=== PATIENT | female | born 1950 | race Caucasian/White ===

== ENCOUNTER 2021-01-13 10:07 | Emergency (ER) | payer OTHER ==
--- OUTSIDE RECORDS SUMMARY | 2021-01-13 10:12 | XMS REPORT | Continuity of Care Document ---
:1950 Author Organization [facility] t Address [address] [place] [address] Care Team Providers Name Role Phone Asked, Pcp Primary Care Physician Unavailable Joaquina MORRISON, Erin Attending Clinician Claudio MORRISON, Beau Attending Clinician Dolores EMMANUEL Attending Clinician Unavailable Payers Payer Name Policy Type Policy Effective Date Expiration Date Sour ce Number UHC MEDICAREUHC [id number] 2020 [facility]/HEALTHSELECT 00:00:00 Methodis t [id number] 2020-Present [facility] [id number] [facility] - - MEDICARE MGD 00:00:00 Medical Ce nter CAREUNITED MEDICARE [id number] 021-Present Problems Condition Condition Condition Status Onset Resolution Last Treating Co mments Source Name Details Category Date Date Treatment Clinician Date Lumbar Lumbar Disease Active Overview: [facility] rad[facility]opa radiculopa 1-28 Periodic [facility] - thy thy 00:00: injection Medical 00 s [facility] orthopedi cs. Multiple, helpful, ongoing pain. Discussed the lack of physical therapy. She has a little back book from that doctor. Pelvic Pelvic Disease Active Overview: [facility] pain pain 1-28 Since [facility] - 00:00: early Medical August. Center Constant discomfor t. Worse with BM, urination , gas. Feels Has appt Saturday with urogyneco lgist. "Dr. Nelson" Woman's No inconveni ence or bowel issues. , not vaginal .Hysterec chuck. OVARIES removed tue Anxiety Anxiety Disease Active Overview: [facility] St 03-04 Related [facility] - 00:00: to Medical cancer, Center sleep. Prozac and HS Xanax. Disorder Disorder Disease Active [facility] of of 03-04 [facility] - initiating initiating 00:00: [place] dical and and Center maintainin maintainin g sleep g sleep Malignant Malignant Disease Active Overview: [facility] neoplasm neoplasm 04-07 Removed [facility] - of right of right 00:00: March Medica l ovary ovary Center netic study pending. By oncologyC A 125 followed. COMPLETE HYST, no hormones. BMI BMI Disease Active [facility] 25.0-25.9, 25.0-25.9, 1-19 [place] kes - adult adult 00:00: Medical [place] Benign Benign Disease Active Overview: [facility] essential essential 04-25 No HTN Luke s - tremor tremor 00:00: Long Medical standing, Center prev Neuro eval. Kaleigh Johnson [facility] NuroPropr anolol. Daily, controls, mild sx. Now on primidone and gabapenti n. Hyperlipid Hyperlipid Disease Active Overview : [facility] emia, emia, 6- On [facility] - mixed mixed 00:00: Pravachol Medical , Mother Center with high cholester ol to age 89 (dementia since age 84) Primary Primary Disease Active Overview: [facility] insomnia insomnia 03-20 Sees [facility] - 00:00: psych [facility] for insomnia. Sleep problems her entire life. Hates Ambien, one Xanax at bedtime. Atypical Atypical Problem Active Antonio r facial facial for ENT pain pain Sinusitis Sinusitis Problem Active Elsa ter - Chronic - Chronic for ENT Cough Cough Problem Active Center for ENT Allergic Allergic Problem Active Cente r rhinitis, rhinitis, for ENT seasonal seasonal Tinnitus, Tinnitus, Problem Active Elsa ter bilateral bilateral for ENT Chronic Chronic Problem Active Center rhinitis rhinitis for EN T vasomotor vasomotor Deviated Deviated Diagnosis Active [facility] ter nasal nasal for ENT septum septum Postnasal Postnasal Problem Active Elsa ter drip drip for ENT GERD GERD Problem Active Center for ENT Chronic Chronic Problem Active Center laryngitis laryngitis fo r ENT (LPRD) (LPRD) Cough Cough Problem Active Center variant variant for ENT asthma asthma Acute Acute Problem Active Center bronchitis bronchitis fo r ENT due to due to Mycoplasma Mycoplasma pneumoniae pneumoniae Hoarseness Hoarseness Problem Active C enter for ENT Acute Acute Problem Active Center laryngitis laryngitis fo r ENT Acute Acute Diagnosis Active Center recurrent recurrent for ENT maxillary maxillary sinusitis sinusitis Allergies, Adverse Reactions, Alerts Allergy Allergy Status Severity Reaction(s) Onset Inactive Treating Comm ents Source Name Type Date Date Clinician No Known DA Active U 2020-0 [facility] 00 [facility] No Known DA Active U 2020-0 [facility] Allergie 8-18 [facility] 00:[facility] H[facility]ita 00 [facility] No Known DA Active U 2020-0 [facility] Allergie 7-17 [place] 00[facility]ope 00 dic Hospita l No Known DA Active U 2020-0 [facility] Allergie 2-19 [place] [facility] 00:[facility] Orthope 00 dic [facility]ospita [facility] No Known DA Active U 2020-0 [facility] Allergie 1-07 [place] [facility] 00:[facility]: Orthope 00 dic Hospita l No Known DA Active U 2019-0 [facility] Allergie 7-23 [place] [facility] 00:[facility] Orthope 00 dic Hospita l No Known DA Active U 2018- [facility]ergie 2-28 [facility] 00:[facility]: [place] 00 [facility] No Known DA Active U 2014- [facility] Allergie 0-10 [place] [facility] 00:00: Orthope 00 dic Hospita l Social History Social Habit Start Date Stop Date Quantity Comments Source Alcohol Comment pt has two [facility] k[facility] - drinks 7 days a Medical C enter week Tobacco use and 2020-06-02 2020-06-02 Never used [facility] ethodist exposure 00:00:00 00:00:00 Alcohol intake 2020-06-02 2020-06-02 Current drinker [place] [facility] 00:00:00 00:00:00 of alcohol (finding) History [facility] 2020-05-11 2020-05-11 4 [place] [facility] Alcohol Frequency 00:00:00 00:00:00 History [facility] 2020-05-11 2020-05-11 1 [place] [facility] Alcohol Std Drinks 00:00:00 00:00:00 History [facility] 2020-05-11 2020-05-11 1 [place] [facility] Alcohol Binge 00:00:00 00:00:00 Sex Ass[birth year] At [birth year] [place] ethodist 00:00:00 00:00:00 Smoking Status Start Date Stop Date Source Never smoker [place] [facility] Medications Ordered Filled Start Stop Current Ordering Indication Dosage Frequency Signature Comments Components Source Medication Medication Date Date Medication? Clinician (SIG) Name Name gabapentin 2021- Yes 300mg Q.5D Take [address] [facility] (Neurontin) 12-20- capsule Meth german 300 mg 00:00: 23:59 ([address] capsule 00 :00 total) by mouth 2 (two) times a day. famotidine 2021- Yes 40mg QD Take [address] [facility] (PEPCID) 40 3-10 -10 tablet (40 L ukes - MG tablet 00:00: 23:59 mg total) Me dical 00 :00 by mouth Center every evening. rosuvastati 2021- Yes 20mg QD Take [address] [facility] (CRESTOR) 2-08 tablet (20 L ukes - 20 MG 00:00: 23:59 mg total) Medica l tablet 00 :00 by mouth Center nightly. primidone 2021- Yes 150mg Q.5D Take 3 [place] (MYSOLINE) 10-28- tablets Metho di 50 MG 00:00: 23:59 ([address] tablet 00 :00 total) by mouth 2 (two) times a day. folic acid Yes 1mg Take [address] (FOLVITE) 10-27 by mouth. [place] - MG tablet 10:17: [address] cetirizine Yes 10mg QD Take [address] (ZYRTEC) 10-27 by mouth Luke s - MG tablet 10:12: daily. Medica l 47 Center fluticasone Yes 1{spray QD [address] [facility] (FLONASE) 10-27 } Nasal [facility] - 50 10:12: route Medical mcg/actuati 47 daily. Center on nasal spray ALPRAZolam Yes .5mg Take 0.[address] (XANAX) 0.5 1-28 mg by [facility] - MG tablet 10:12: mouth Medical 47 every Center night as needed for Anxiety. azelastine Yes 2{spray QD [address] (ASTELIN) 10-27 } by Nasal [facility] - 137 mcg 10:12: route Medical (0.1 %) 47 daily Use Center nasal spray in each nostril as directed . fLUoxetine Yes 5mg QD Take [address] (PROZAC) 10 10-27 by mouth Luke s - MG capsule 10:12: daily . Medi jeremias 47 Center propranoloL 2021- Yes 80mg QD Take [address] (INDERAL 10-27 capsule [facility] - [place]) 80 MG 00:00: 23:59 (80 mg Medic al 24 hr 00 :00 total) by Center capsule mouth daily. meloxicam 2019-09 Yes 15mg Take [address] (MOBIC) 15 2-31 by mouth [facility] - MG tablet 00:00: as needed. Me dical 00 Center primidone 2019-09 Yes 150mg Q.5D Take [address] (MYSOLINE) 2-29 mg by [facility] - 50 MG 00:00: mouth 2 Medical tablet 00 (two) Center times daily. gabapentin 2019-09 Yes 300mg Q.5D Take [address] (NEURONTIN) 2-17 mg by [facility] - 300 MG 00:00: mouth 2 Medical capsule 00 (two) Center times daily. primidone 2019-09 No 150mg Q.5D Take 3 [place] (MYSOLINE) 2-10-28 tablets Metho di 50 MG 00:00: 00:00 ([address] tablet 00 :00 total) by mouth 2 (two) times a day. cetirizine 2019-09 Yes 10mg Take 10 mg [place] (ZyrTEC) 10 1-10 by mouth. Met hodi MG tablet 13:04: st 54 FLUoxetine 2019-09 Yes fluoxetine [place] (PROzac) 20 1-10 20 mg Methodi MG tablet 13:04: tablet st 54 fluticasone 2019-09 Yes 1{spray 1 spray [facility] propionate 1-10 } into each Meth german (FLONASE) 13:04: nostril. st 50 54 mcg/actuati on nasal spray folic acid 2019-09 Yes 1mg QD Take 1 mg [place] (FOLVITE) 1 1-10 by mouth Meth german MG tablet 13:04: daily. st 54 gabapentin 2019-09 No 300mg QD Take 3 [facility] (Neurontin) 1-10 03-23 capsules Met hodi 100 mg 00:00: 00:00 ([address] capsule 00 :00 total) by mouth nightly. primidone 2019-09 No 150mg Q.5D Take 3 [place] (MYSOLINE) 0-27 11-26 tablets Metho di 50 MG 00:00: 23:59 ([address] tablet 00 :00 total) by mouth 2 (two) times a day for 30 days. primidone 2019-09 No 250mg QD Take 1 [place] (MYSOLINE) 0-13 10-27 tablet Method i 250 MG 00:00: 00:00 ([address] tablet 00 :00 total) by mouth nightly for 90 days. primidone No 125mg QD Take 0.5 [place] (MYSOLINE) 9-28 10-13 tablets Metho di 250 MG 00:00: 00:00 ([address] tablet 00 :00 total) by mouth nightly for 90 days. primidone No 75mg QD Take 1.5 [facility] (MYSOLINE) 9 09-28 tablets Metho di 50 MG 00:00: 00:00 ([address] tablet 00 :00 total) by mouth nightly for 62 days. propranolol No 80mg QD Take 1 [place] [facility] (INDERAL 05-11 08-12 capsule Meth german [place]) 80 MG 00:00: 23:59 ([address] 24 hr 00 :00 total) by capsule mouth daily. primidone 2019- No 50mg QD Take 1 [place] (MYSOLINE) 05-11-03 tablet (50 Me thodi 50 MG 00:00: 00:00 mg total) st tablet 00 :00 by mouth nightly for 62 days. biotin 2019- No QD Take by [facility] 5,000 mcg 6-05 06-05 mouth [facility] - TbDL 10:34: 00:00 daily. Medical 52 :00 Center FOLIC ACID 2019- No QD Take by [facility] ORAL 6-05 06-05 mouth [facility] - 10:34: 00:00 daily. Medical 21 :00 Center gabapentin 2019- No 400mg Q.5D Take [address] (NEURONTIN) 6- 06-05 mg by [facility] - 400 MG 10:34: 00:00 mouth 2 Medical capsule 15 :00 (two) Center times daily . propranoloL No 120mg QD Take [address] (INDERAL 6-01 28-28 capsule [facility] - [place]) 120 MG 00:00: 00:00 (120 mg Med ical 24 hr 00 :00 total) by Center capsule mouth daily. propranolol 2019- No 120mg Take 120 [facility] [place] (INDERAL 6-05 08-12 mg by Method i [place]) 120 MG 00:00: 00:[address] 24 hr 00 :00 capsule rosuvastati No 10mg QD Take [address] n (CRESTOR) 5 02-08 tablet (10 L ukes - 10 MG 00:00: 00:00 mg total) Medica l tablet 00 :00 by mouth Center nightly. propranolol 2019- No 80mg QD Take [address] (INDERAL 10-21 06-05 capsule [facility] - [place]) 80 MG 00:00: 00:00 (80 mg Medic al 24 hr 00 :00 total) by Center capsule mouth daily. omeprazole 2019- No 40mg QD Take [address] (PRILOSEC) 8- 06-05 capsule [facility] - 40 MG 00:00: 00:00 (40 mg Medical capsule 00 :00 total) by Center mouth daily. rosuvastati 2019- No 10mg QD Take [address] n (CRESTOR) 5- 05-27 tablet (10 L u[facility] - 10 MG 00:00: 00:00 mg total) Medica l tablet 00 :00 by mouth Center nightly. ranitidine 2020- No 150mg QD Take [address] (ZANTAC) 1-24 06-05 tablet [facility] - 150 MG 00:00: 00:00 (150 mg Medical tablet 00 :00 total) by Center mouth nightly. Astepro Astepro Yes [place] 2 spray in Center 2-12 Emmanuel each for ENT 00:00: nostril 00 Ranitidine Ranitidine Yes Eugene 1 tablet Center HCl HCl 8-17 Emmanuel at bedtime for ENT 00:00: 00 Omeprazole Omeprazole Yes [place] 1 capsule Center 8-17 Emmanuel before for ENT 00:00: breakfast, 00 1 capsule before dinner ALPRAZolam Yes alprazolam [place] (XANAX) 0.5 7-11 0.5 mg Method i MG tablet 00:00: tablet st 00 propranolol 2020- No propranolo [place] (INDERAL 6-30 08-12 l ER 80 mg M ethodi [place]) 80 MG 00:00: 00:00 capsule,24 s t 24 hr 00 :00 hr,extende capsule d release meloxicam Yes [place] (MOBIC) 15 6-15 Methodi mg tablet 00:00: st 00 rosuvastati Yes rosuvastat [place] n (CRESTOR) 4-24 in 10 mg Meth german 10 mg 00:00: tablet st tablet 00 Flonase Flonase Yes [facility] not [place] defined for ENT Propranolol Propranolol Yes [facility] not [place] HCl HCl [place] defined for ENT Zoloft Zoloft Yes [facility] not [place] defined for ENT Rosuvastati Rosuvastati Yes [facility] n Calcium n Calcium [place] defined f or ENT Estrace Estrace Yes [facility] [place] defined for ENT Zertec Zertec Yes [facility] [place] defined for ENT Ambien Ambien Yes [facility] [place] defined for ENT Immunizations Ordered Immunization Filled Immunization Date Status Commen ts Source Name Name [place] COVID-19 MRNA 2021-01-03 Completed [place] VACCINATION 00:00:00 [facility] INFLUENZA QIV 2020-09-[address] [facility] - ADJUVANTED PF IM 00:00:00 Medical Center Pneumococcal 2020-03-[address] [facility] - Polysaccharide 00:00:00 Medical Ce nter (Pneumovax) SHINGLES VARICELLA 2016-10-18 Completed [facility] - (ZOSTAVAX) ZOSTER 00:00:00 [facility] Influenza Three-TIV 2016-10-18 Completed [facility] - Non-PF 4+YRS IM 00:00:00 Medical C enter Vital Signs Vital Name Observation Time Observation Value Comments Source Systolic blood 2020-10-27 10:15:00 105 mm[Hg] [facility] Diastolic blood 2020-10-27 10:15:00 70 mm[Hg] [facility] Heart rate 2020-10-27 10:15:00 68 /min [facility] Body temperature 2020-10-27 10:15:00 36.28 [facility] Respiratory rate 2020-10-27 10:15:00 16 /min [facility] Body height 2020-10-27 10:15:00 162.6 cm [facility] Body weight 2020-10-27 10:15:00 67.518 kg [facility] BMI 2020-10-27 10:15:00 25.55 kg/m2 [facility] Oxygen saturation in 2020-10-27 10:15:00 98 /min [facility] - Arterial blood by Medical Ce nter Pulse oximetry Systolic blood 2020-08-09 13:01:00 119 mm[Hg] [facility] pressure Diastolic blood 2020-08-09 13:01:00 74 mm[Hg] [place] [facility] pressure Heart rate 2020-08-09 13:01:00 66 /min [facility] Body height 2020-08-09 13:01:00 160 cm [facility] Body weight 2020-08-09 13:01:00 68.04 kg [facility] BMI 2020-08-09 13:01:00 26.57 kg/m2 [facility] Procedures Procedure Date / Time Performing Clinician Source Performed CBC W/PLT COUNT & AUTO 2020-10-27 11:21:00 Adolfo Snyder [facility] COMPREHENSIVE METABOLIC 2020-10-27 11:21:[address] [facility] HEMOGLOBIN A1C 2020-10-27 11:21:00 Adolfo Snyder Beau [facility] LIPID PANEL 2020-10-27 11:21:00 Adolfo Snyder Beau [facility] T4, FREE 2020-10-27 11:21:00 Adolfo Snyder Beau [facility] TSH 2020-10-27 11:21:00 Adolfo Snyder [facility] VITAMIN D, 25-HYDROXY 2020-10-27 11:21:00 Claudio [facility] UA/M W/RFLX CULTURE, 2020-10-27 11:21:00 Adolfo Snyder [facility] MICROSCOPIC EXAMINATION 2020-10-27 11:21:00 Adolfo Snyder [facility] ECG 12-LEAD 2020-10-27 00:00:00 [facility]RAIN W WO CONTRAST 2020-06-10 14:31:14 Rodolfo Escudero BASIC METABOLIC PANEL 2020-06-02 13:29:00 Rodolfo Escudero Plan of Care Planned Activity Planned Date Details Comments Source Future Scheduled 2021-10-[address] [facility] - Test 00:00:00 [facility] (YEAR 3 +) [facility] [code = MEDICARE SUBSEQUENT WELLNESS (YEAR 3 +)] Future Scheduled 2021-09-[address] [facility] - Test 00:00:00 [facility] breast (procedure) [code = 190216559] Future Scheduled 2021-04-30 INFLUENZA VACCINE [place] [facility] Test 00:00:00 [code = INFLUENZA VACCINE] Future Scheduled 2021-01-24 COVID-19 VACCINE (2 - [place] [facility] Test 00:00:00 Pfizer 2-dose series) [code = COVID-19 VACCINE (2 - Pfizer 2-dose series)] Future Scheduled 2020-02-[address] [facility] - Test 00:00:00 malignant neoplasm of [facility] colon (procedure) [code = 813822454] Future Scheduled 2016-12-16 SHINGLES VACCINES [place] [facility] Test 00:00:00 (#2) [code = SHINGLES VACCINES (#2)] Future Scheduled 2016-12-13 SHINGLES VACCINES ([address] [facility] - Test 00:00:00 of 3) [code = Medical Center SHINGLES VACCINES (2 of 3)] Future Scheduled 2000 BREAST CANCER [facility] Test 00:00:00 SCREENING [code = BREAST CANCER SCREENING] Future Scheduled 2000 COLONOSCOPY SCREENING [place] [facility] Test 00:00:00 [code = COLONOSCOPY SCREENING] Future Scheduled 1969 DTAP/TDAP/TD VACCINES [facility] - Test 00:00:00 (1 - Tdap) [code = Medical C enter DTAP/TDAP/TD VACCINES (1 - Tdap)] Future Scheduled 1968 Hepatitis C screening [place] [facility] Test 00:00:00 (procedure) [code = 906097839] Future Scheduled 1968 HEPATITIS C SCREENING [facility] - Test 00:00:00 [code = HEPATITIS C Medical Center SCREENING] Encounters Start End Encounter Admission Attending Care Care Encounter Source Date/Time Date/Time Type Type Clinicians Facility Department ID 2021-01-03 2021-01-03 Outpatient [facility] [id number] [place] 00:00:00 00:00:00 542 Method i 2020-08-09 2020-08-09 Outpatient [facility] [id number] [place] 00:00:00 00:00:00 RODOLFO 712 Method i 2020-06-10 2020-06-10 Outpatient [facility] [id number] [place] 00:00:00 00:00:00 RODOLFO 777 Method i 2020-06-02 2020-06-02 Outpatient [facility] [id number] [place] 00:00:00 00:00:00 RODOLFO 987 Method i 2020-06-02 2020-06-02 Outpatient [facility] [id number] [place] 00:00:00 00:00:00 RODOLFO 012 Method i 2020-05-11 2020-05-11 Outpatient JOAQUINA Lily [facility] [id number] [place] 00:00:00 00:00:[address] 2018-02-10 2018-02-10 Outpatient [facility] [id number] Center 14:50:00 14:50:00 [facility] 2017-12-10 2017-12-10 Outpatient [facility] [id number] Center 17:34:00 17:34:00 [facility] 2017-12-09 2017-12-09 Outpatient [facility] [id number] Center 14:30:00 14:30:00 [facility] 2017-12-05 2017-12-05 Outpatient The [facility] [id number] Center 15:19:00 15:19:00 [facility] 2017-12-05 2017-12-05 Outpatient The [facility] [id number] Center 11:20:00 11:20:00 [facility] 2017-12-04 2017-12-04 Outpatient The [facility] [id number] Center 13:11:00 13:11:00 [facility] 2017-12-04 2017-12-04 Outpatient The The [facility] [id number] Center 13:01:00 13:01:00 [facility] 2017-11-26 2017-11-26 Outpatient The The [facility] [id number] Center 16:26:00 16:26:00 [facility] 2017-11-26 2017-11-26 Outpatient The The [facility] [id number] Center 11:15:00 11:15:00 [facility] 2017-11-26 2017-11-26 Outpatient The [facility] [id number] Center 08:30:00 08:30:00 [facility] 2017-11-11 2017-11-11 Outpatient The The [facility] [id number] Center 13:00:00 13:00:00 [facility] Results Test Description Test Time Test Comments Results Result Sour e Comments - XR FLUORO FOR 2020-12-13 SPINE INJ 20:02:00 [facility] MARK SHARMA : 1950 Sex: F Patient Name: MARK SHARMA Unit No: [id number] EXAMS: CPT CODE: [id number] XR FLUORO FOR SPINE INJ [id number] THORACIC EPIRADICULAR INJECTION REFERRAL PHYSICIAN: None PREOPERATIVE DIAGNOSIS: Thoracic Disc Degeneration and Radiculitis POSTOPERATIVE DIAGNOSIS: Degenerative T6-7 and T8-9 discs with thoracic radiculitis PROCEDURES PERFORMED: Fluoroscopically guided needle localization of the right T6 and right T8 spinal nerves with transforaminal epidurograms and epidural injection of local anesthetic and steroid. FINDINGS: Infraneural approaches were taken at each level. Bridging osteophytosis with loss of disc space height and diffuse annular degeneration was seen at each level. Provocation with injection was negative. Anesthetic response was positive with the patient noting relief of her thoracic back and radiating pain. Preinjection VAS 3/10. Postinjection VAS 0/10. Steroid response pending follow-up. ESTIMATED BLOOD LOSS: Minimal ANESTHESIA: TIVA COMPLICATIONS: None DETAILS OF PROCEDURE: After obtaining stable vital signs, informed consent and IV access, with no contraindications, the patient was taken to the operating room and placed in a prone position with all extremities padded and appropriate monitors placed. The patient was sterilely prepped and draped over the thoracic spine. Using fluoroscopic visualization the insertion sites were marked for paravertebral approaches and using standard technique, a 25 gauge needle was advanced to the base of each superior pedicle without paresthesias. Isovue-300 contrast 0.2 mL of was injected incrementally with frequent negative aspirations to produce each epidurogram. There were no signs of intravascular or intrathecal uptake. Intradiscal uptake was seen at each level. Bupivicaine 0.75% 0.25 mL with lidocaine 4% 0.25 mL and triamcinolone 20 mg with kefzol (100 mg/ml) 0.2 ml was then incrementally injected with frequent negative aspirations and again there were no signs of intravascular or intrathecal uptake. The needles were removed and the patient was taken to the PACU in good condition. Image: Image 1 Image: Image 2 Image: Image 3 at 2001 Reported and signed by: Dao Sanabria M.D. [facility] [place] NAME: MARK SHARMA [address] [facility] PHYS: Dao Coyne MD [place] [address] : 1950 AGE: 70 SEX: F LOC: [facility] PHONE #: [phone] EXAM DATE: 12/13/2020 STATUS: REG [facility] FAX #: [phone] RAD #: [id number] D/C DT PAGE 1 Signed Report (CONTINUED) Patient Name: MARK SHARMA Unit No: [id number] EXAMS: CPT CODE: [id number] XR FLUORO FOR SPINE INJ [id number] <Continued> CC: Technologist: Sugar Hunt() [facility] [place] NAME: MARK SHARMA [address] [facility] PHYS: Dao Coyne MD [place] [address] : 1950 AGE: 70 SEX: F LOC: [facility] PHONE #: [phone] EXAM DATE: 12/13/2020 STATUS: REG [facility] FAX #: [phone] RAD #: [id number] D/C DT PAGE 2 Signed Report Patient Name: MARK SHARMA Unit No: [id number] EXAMS: CPT CODE: [id number] XR FLUORO FOR SPINE INJ [id number] <Continued> Transcribed D/ (2001) [facility] [place] NAME: MARK SHARMA [address] [facility] PHYS: Dao Coyne MD [place] [address] : 1950 AGE: 70 SEX: F LOC: [facility] PHONE #: [phone] EXAM DATE: 12/13/2020 STATUS: REG [facility] FAX #: [phone] RAD #: [id number] D/C DT PAGE 3 Signed Report - XR FLUORO FOR 2020-11-29 SPINE INJ 18:57:00 [facility] 1950 Sex: F Patient Name: MARK SHARMA Unit No: [id number] EXAMS: CPT CODE: [id number] XR FLUORO FOR SPINE INJ 73590 LUMBAR FACET INJECTION DIAGNOSTIC REFERRAL PHYSICIAN: None PREOPERATIVE DIAGNOSIS: Lumbar spondylosis without myelopathy or radiculopathy POSTOPERATIVE DIAGNOSIS: Lumbar spondylosis without myelopathy or radiculopathy PROCEDURE PERFORMED: Fluoroscopically guided needle localization of the left L3-4, bilateral L4-5 and left L5-S1 facets with arthrograms and diagnostic injection of local anesthetic and steroid. FINDINGS: Grade 1-2 spondylolisthesis is seen at L4-5. Moderate to marked degenerative changes were seen in the left L3-4 facet with slight widening of the joint space was seen at the left L4-5 facet. Provocation with injection was negative. Anesthetic response was positive with the patient noting relief of low back pain. Preinjection VAS 5/10. Postinjection VAS 0/10. Steroid response pending follow-up. ESTIMATED BLOOD LOSS: Minimal ANESTHESIA: TIVA COMPLICATIONS: None DETAILS OF PROCEDURE: After obtaining stable vital signs, informed consent and IV access patient was taken to the fluoroscopy suite where the patient was placed in a prone position with all extremities padded and appropriate monitors placed. The patient was sterilely prepped prepped and draped over the lumbosacral spine. Using fluoroscopic visualization, the insertion sites were marked for a paravertebral approach to each joint. Using standard technique, a 26 -gauge needle was inserted into each joint capsule without paresthesias. At all levels, aspiration was negative for clear serous fluid. Isovue-300 contrast 0.2 mL was injected to produce each arthrogram. There were no signs of intravascular or intrathecal uptake. Bupivicaine 0.75% 0.5 mL with Lidocaine 4% 0.25 ml and triamcinolone 12 mg was then injected incrementally into each joint. There were no signs of intravascular or intrathecal uptake. The patient's vital signs remained stable. All needles were removed and the patient was taken to the PACU in good condition. Image: Image 1 Image: Image 2 Image: Image 3 [facility] NAME: MARK SHARMA [address] [facility] PHYS: Dao Coyne MD [place], [place] [address] : 1950 AGE: 69 SEX: F LOC: KarissaPITA PHONE #: [phone] EXAM DATE: 11/29/2020 STATUS: REG [facility] FAX #: [phone] RAD #: [id number] D/C DT PAGE 1 Signed Report (CONTINUED) Patient Name: MARK SHARMA Unit No: [id number] EXAMS: CPT CODE: [id number] XR FLUORO FOR SPINE INJ 24566 <Continued> at 1857 Reported and signed by: Dao Sanabria M.D. CC: Technologist: Sugar Hunt(R) Transcribed D/ (1856) [facility] [address] [facility] PHYS: Dao Coyne MD [place], [place] [address] : 1950 AGE: 69 SEX: F LOC: KarissaPITA PHONE #: [phone] EXAM DATE: 11/29/2020 STATUS: [facility] FAX #: [phone] RAD #: [id number] D/C DT PAGE 2 Signed Report Patient Name: MARK SHARMA Unit No: [id number] EXAMS: CPT CODE: [id number] XR FLUORO FOR SPINE INJ 09865 <Continued> Orig Print D/T: S: 11/29/2020 (1900) [facility] NAME: MARK SHARMA [address] [facility] PHYS: Dao Coyne MD [place], [place] [address] : 1950 AGE: 69 SEX: F LOC: CARISSA PHONE #: [phone] EXAM DATE: 11/29/2020 STATUS: [facility] FAX #: [phone] RAD #: [id number] D/C DT PAGE 3 Signed Report Comprehensive metabolic panel 2020-10-28 16:10:00 Test Item Value Reference Range Interpretation Comme nts Glucose, Serum (test code 103 mg/dL 65-99 H = 20110130) BUN (test code = 20110131) 15 mg/dL 8-27 Creatinine, Serum (test 0.78 mg/dL 0.57-1 code = 5910110) eGFR If NonAfricn Am (test 78 mL/min/1.73 >59 code = 5864848) eGFR If Africn Am (test 90 mL/min/1.73 >59 code = 6013455) BUN/Creatinine Ratio (test 19 12-28 code = 3141619) Sodium, Serum (test code = 141 mmol/L 134-629 2011401) Potassium, Serum (test 4.6 mmol/L 3.5-5.2 code = 4051823) Chloride, Serum (test code 101 mmol/L 96-106 = 20110217) Carbon Dioxide, Total 26 mmol/L 20-29 (test code = 5617730) Calcium, Serum (test code 9.5 mg/dL 8.7-10.3 = 20110128) Protein, Total, Serum 7.3 g/dL 6-8.5 (test code = 20110204) Albumin, Serum (test code 4.9 g/dL 3.8-4.8 H = 7348636) Globulin, Total (test code 2.4 g/dL 1.5-4.5 = ) A/G Ratio (test code = 2.0 1.2-2.2 ) Bilirubin, Total (test 0.4 mg/dL 0-1.2 code = 20110206) Alkaline Phosphatase, S 56 See_Comment [Au tomated message] (test code = 6768-6) The sys tem which generated this result transmitted ref erence range: 39 - 117 IU/L. The reference r elvi was not used to int erpret this result as normal/abnormal . AST (SGOT) (test code = 16 See_Comment [Au tomated message] 20110210) The system [employer] generated this result transmitted ref erence range: 0 - 40 I U/L. The reference range was not used to interpr et this result as normal/abnormal . ALT (SGPT) (test code = 13 See_Comment [Au tomated message] ) The system [employer] generated this result transmitted ref erence range: 0 - 32 I U/L. The reference range was not used to interpr et this result as normal/abnormal . ELAN (test code = ELAN) Performed at: [facility] [id number] Director: Harrison Lassiter MD, Phone: [phone] Lab Interpretation (test Abnormal code = 07883-7) [facility] [id number] 16:10:00 Test Item Value Reference Range Interpretation Comments Cholesterol, Total 249 mg/dL 100-199 H (test code = 2093-3) Triglycerides (test 113 mg/dL 0-149 code = 2571-8) HDL Cholesterol (test 105 mg/dL >39 code = 2085-9) VLDL Cholesterol Jeremias 19 mg/dL 5-40 (test code = 26696-9) LDL Calculated (test 125 mg/dL 0-99 H code = 19381-1) LDl/HDL Ratio (test 1.2 See_Comment code = 92134-0) LDL/HDL Ratio Men Women 1/2 Avg.Risk 1.0 1.5 Avg.Risk 3.6 3.2 2X Avg.Risk 6. 2 5.0 3X Avg.Risk 8. 0 6.1 [Automat ed message] The system which generated this result transmitted reference range : 0.0 - 3.2 ratio . The reference range was not used to interpr et this result as normal/abnormal . ELAN (test code = ELAN) Performed at: [address] [place] [id number] Director: Harrison Lassiter MD, Phone: [phone] Lab Interpretation Abnormal (test code = 40157-3) [facility] [id number] 16:10:00 Test Item Value Reference Range Interpretation Comments Hemoglobin A1c (test 5.7 % 4.8-5.6 H code = 4548-4) Prediabetes: 5.7 - 6.4 Diabetes: >6.4 Glycemic control for adults with diabetes: <7.0 ELAN (test code = ELAN) Performed at: [address] [place] [id number] Director: Harrison Lassiter MD, Phone: [phone] Lab Interpretation Abnormal (test code = 68675-2) [facility] CenterT4, [id number] 16:10:00 Test Item Value Reference Range Interpretation Comments T4,Free(Direct) (test 1.15 ng/dL 0.82-1.77 code = 0721743) Thyroxine (T4) (test 6.4 ug/dL 4.5-12 code = 6765842) ELAN (test code = ELAN) Performed at: [address] [place] [address] [id number] Director: Harrison Lassiter MD, Phone: [phone] [facility] [id number] 16:10:00 Test Item Value Reference Range Interpretation Comments TSH (test code 1.930 See_Comment [Automated m essage] = ) The system [employer] generated this result transmit ander reference range : 0.450 - 4.50 uI U/mL. The reference r elvi was not used to interpret this result as normal/abnormal . ELAN (test code Performed at: - = ELAN) [address] [id number] Director: Harrison Lassiter MD, Phone: [phone] [facility] with platelet count + automated [id number] 16:10:00 Test Item Value Reference Range Interpretation Comments WBC (test code = 6.5 See_Comment [Automated ) message] The system which generated this result transmit ander reference range : 3.4 - 10.8 x10E3/uL. The reference range was not used to interpret this result as normal/abnormal . RBC (test code = 4.30 See_Comment [Automated 9-8) message] The system which generated this result transmit ander reference range : 3.77 - 5.28 x10E6/uL. The reference range was not used to interpret this result as normal/abnormal . Hemoglobin (test 13.3 g/dL 11.1-15.9 code = ) Hematocrit (test 39.3 % 34-46.6 code = ) MCV (test code = 91 fL 79-97 ) MCH (test code = 30.9 pg 26.6-33 ) MCHC (test code = 33.8 g/dL 31.5-35.7 ) RDW (test code = 12.9 % 11.7-15.4 ) Platelets (test 202 See_Comment [Automated code = ) message] The system which generated this result transmit ander reference range : 150 - 450 x10E3/uL. The reference range was not used to interpret this result as normal/abnormal . % Neutros (test 58 % Not Estab. code = ) % Lymphs (test 33 % Not Estab. code = ) % Monos (test code 6 % Not Estab. = ) % Eos (test code = 2 % Not Estab. ) % Baso (test code 1 % Not Estab. = ) # Neutros (test 3.8 See_Comment [Automated code = ) message] The system which generated this result transmit ander reference range : 1.4 - 7.0 x10E3/uL. The reference range was not used to interpret this result as normal/abnormal . # Lymphs (test 2.1 See_Comment [Automated code = ) message] The system which generated this result transmit ander reference range : 0.7 - 3.1 x10E3/uL. The reference range was not used to interpret this result as normal/abnormal . # Monos (test code 0.4 See_Comment [Automat ed = ) message] The system which generated this result transmit ander reference range : 0.1 - 0.9 x10E3/uL. The reference range was not used to interpret this result as normal/abnormal . # Eos (test code = 0.1 See_Comment [Automat ed ) message] The system which generated this result transmit ander reference range : 0.0 - 0.4 x10E3/uL. The reference range was not used to interpret this result as normal/abnormal . Baso (Absolute) 0.1 See_Comment [Automated (test code = message] The ) system which generated this result transmit ander reference range : 0.0 - 0.2 x10E3/uL. The reference range was not used to interpret this result as normal/abnormal . % Immature Grans 0 % Not Estab. (test code = ) # Immature Grans 0.0 See_Comment [Automated (test code = message] The ) system which generated this result transmit ander reference range : 0.0 - 0.1 x10E3/uL. The reference range was not used to interpret this result as normal/abnormal . ELAN (test code = Performed at: ELAN) - [facility] [address] [id number] Director: Harrison Lassiter MD, Phone: [phone] [facility] CenterVitamin D, 10-[id number] 16:10:00 Test Item Value Reference Range Interpretation Comments Vitamin D, 20.8 ng/mL 30-100 L Vitamin D 25-Hydroxy (test deficiency has been code = 1610594) defined by t [place] and an Endocrine Socie ty practice guidel ine as alevel of se rum 25-OH vitamin D less than 20 ng /mL (1,2).The Endoc rine Society went on to further define vitamin Dinsufficiency as a level between 2 1 and 29 ng/mL (2 ).1. IOM ([place] [employer]). 2010 . Dietary referen ce intakes for jeremias cium and D. [place]: The [employer] .2. George MF, Kristy CARIAS, Moe malcolm ORNELAS, et al. Evaluation, treatment, and prevention of vitamin D deficiency: an Endocrine Socie ty clinical practi ce guideline. JCEM . 2010; 96(5):1911-30. ELAN (test code = Performed at: ELAN) - [facility] [address] [id number] Director: Harrison Lassiter MD, Phone: [phone] Lab Interpretation Abnormal (test code = 35228-0) [facility]/M W/RFLX CULTURE, [id number] 16:10:00 Test Item Value Reference Range Interpretation Comments Specific [place], 1.008 1.005-1.03 UA (test code = 2965-2) pH, UA (test code = 6.5 5.0-7.5 5803-2) Color, UA (test Yellow Yellow code = 9796-4) Appearance (test Clear Clear code = 5297608) WBC Esterase (test Negative Negative code = 5237813) Protein, UA (test Negative Negative/T code = 36361-1) Glucose, Urine Negative Negative (test code = 50644-1) Ketones, UA (test Negative Negative code = 2514-8) Blood, UA (test Negative Negative code = 08739-1) Bilirubin, UA (test Negative Negative code = 5770-3) Urobilinogen,Semi-Q 0.2 mg/dL 0.2-1 n (test code = 3966106) Nitrite, UA (test Negative Negative code = 48855-3) Microscopic Comment Microscopic Examination (test follows if code = 1750789) indicated. Microscopic See below: Microscopic was Examination (test indicated and was code = 8031908) performed. Urinalysis Reflex Comment This speci men will (test code = not reflex to a ) Urine Culture. ELAN (test code = Performed at: ELAN) - [facility] [address] [id number] Director: Harrison Lassiter MD, Phone: [phone] [facility] CenterMICROSCOPIC [id number] 16:10:00 Test Item Value Reference Range Interpretation Comments WBC (test code = None seen See_Comment [Automated 20110604) message] The system which generated this result transmit ander reference range : 0 - 5 /hpf. The reference range was not used to interpret this result as normal/abnormal . RBC (test code = None seen See_Comment [Automated 20110610) message] The system which generated this result transmit ander reference range : 0 - 2 /hpf. The reference range was not used to interpret this result as normal/abnormal . Epithelial Cells None seen See_Comment [Automated (non renal) (test message] T he code = 20110618) system which generated this result transmit ander reference range : 0 - 10 /hpf. The reference range was not used to interpret this result as normal/abnormal . Bacteria (test Few None seen/ code = 6756824) ELAN (test code = Performed at: 01 ELAN) - [facility] [id number] [place], [place] [id number] Director: Harrison Lassiter MD, Phone: [phone] [facility]- MRI L-SPINE W/O [id number] 07:43:00 [facility] : 1950 Sex: F Patient Name: MARK SHARMA Unit No: [id number] EXAMS: CPT CODE: [id number] MRI L-SPINE W/O CONT 18312 TECHNIQUE: Multiplanar, multisequence MRI examination performed of the thoracic and lumbar spine without intravenous contrast material. COMPARISON: MR dated 04/01/2017 FINDINGS: THORACIC SPINE: Alignment: Within normal limits Bone Lesion: None of significance. Thoracic Spinal Cord: Normal. Prevertebral / Paraspinal Soft Tissues: Unremarkable. T1-2: A right paracentral disc extrusion is again demonstrated measuring 2 mm in AP dimension with 4 mm of cephalad migration. Facet hypertrophy contributes to mild bilateral foraminal stenosis.No significant central canal stenosis. T2-3: Small disc bulge is noted as well as mild bilateral facet hypertrophy. No significant foraminal or central canal stenosis. T3-4: Small disc bulge. No significant foraminal or central T4-5: No disc bulge or herniation. Right greater than left facet hypertrophy. No foraminal or central canal stenosis. T5-6: No disc bulge or herniation. No central canal or foraminal stenosis. T6- 7: Small disc bulge. No foraminal or central canal stenosis. T7-8: Disc desiccation without significant bulge or herniation. No foraminal or central canal stenosis. T8-9: Small disc bulge is present. No foraminal or central canal stenosis. T9-10: Small disc bulge is present as well as mild facet hypertrophy. No foraminal or central canal stenosis. T10-11: A disc bulge is noted as well as right greater than left facet hypertrophy. There is mild right foraminal stenosis. No significant left foraminal orcentral canal stenosis. T11-12: Minimal disc bulge is present as well as mild facet hypertrophy. No significant foraminal or central canal stenosis. T12-L1: A moderatedisc bulge contributes to mild central canal stenosis. No significant foraminal stenosis. LUMBAR SPINE: [facility] NAME: MARK SHARMA [address] [facility] PHYS: Dao Coyne MD : 1950 AGE: 69 SEX: F [place], [place] [address] LOC: Y.MRI PHONE #: [phone] EXAM DATE: 09/28/2020 STATUS: DEP CLI FAX #: [phone] RAD #: [id number] D/C DT PAGE 1 Signed Report (CONTINUED) Patient Name: MARK SHARMA Unit No: [id number] EXAMS: CPT CODE: [id number] MRI L-SPINE W/O CONT 78674 <Continued> Alignment: Grade 1 degenerative spondylolisthesis. Bone Lesion: None present. Fracture: None present. Paraspinal Soft Tissues: Unremarkable. Conus Medullaris: Termination at L1 level. Morphology is normal. L1/2: No significant abnormality. L2/3: Bilateral facet hypertrophy. No significant foraminal or central canal stenosis. L3/4: A broad disc bulge is present as well as facet hypertrophy and ligamentum flavum thickening. There is mild to moderate central canal stenosis as wellas mild left foraminal stenosis. No significant right foraminal narrowing. L4/5: Grade 1 degenerative spondylosis. Right-sided hemilaminotomy defect. Severe bilateral facet hypertrophy and ligamentum flavum thickening contribute to severe central canal stenosis, increased. Mild left, moderate right foraminal stenosis is increased. L5/S1: No significant disc bulge or herniation. Bilateral facet hypertrophy is again demonstrated. There is mild central canal stenosis without significant foraminal narrowing. IMPRESSION: Thoracic Spine: Multilevel thoracic spondylosis, mostly similar to prior exam. Lumbar Spine: Progression in lumbar spondylosis with severe central canal stenosis at L4-L5. at 0743 Reported and signed by: Jed Hoyos M.D. CC: Dao Sanabria MD Brittni hnologist: Avani Gilmore, RT(R) Transcribed D/ (0743) t[facility]Y.[facility] NAME: MARK SHARMA [address] [facility] PHYS: Dao Coyne MD : 1950 AGE: 69 SEX: F [place] [address] LOC: Y.MRI PHONE #: [phone] EXAM DATE: 09/28/2020 STATUS: DEP CLI FAX #: [phone] RAD #: [id number] D/C DT PAGE 2 Signed Report Patient Name: MARK SHARMA Unit No: [id number] EXAMS: CPT CODE: [id number] MRI L-SPINE W/O CONT 26963 <Continued> OrigPrint D/T: S: 09/29/2020 (0746) [facility] NAME: MARK SHARMA [address] [facility] PHYS: Dao Coyne MD : 1950 AGE: 69 SEX: F [place] [address] LOC: Y.MRIPHONE #: [phone] EXAM DATE: 09/28/2020 STATUS: [facility] CLI FAX #: [phone] [employer] #: [id number] D/C DT PAGE 3 Signed Report- MRI T-SPINE W/O [id number] 07:43:00[facility]: MARK [facility] : 1950 Sex: F Patient Name: MARK SHARMA Unit No: [id number] EXAMS: CPT CODE: [id number] MRI T-SPINE W/O CONT 11290 TECHNIQUE: Multiplanar, multisequence MRI examination performed of the thoracic and lumbar spine without intravenous contrast material. COMPARISON: MR dated 04/01/2017 FINDINGS: THORACIC SPINE: Alignment: Within normal limits Bone Lesion: None of significance. Thoracic Spinal Cord: Normal. Prevertebral / Paraspinal Soft Tissues: Unremarkable. T1-2: A right paracentral disc extrusion is again demonstrated measuring 2 mm in AP dimension with 4 mm of cephalad migration. Facet hypertrophy contributes to mild bilateral foraminal stenosis.No significant central canal stenosis. T2-3: Small disc bulge is noted as well as mild bilateral facet hypertrophy. No significant foraminal or central canal stenosis. T3-4: Small disc bulge. No significant foraminal or central T4-5: No disc bulge or herniation. Right greater than left facet hypertrophy. No foraminal or central canal stenosis. T5-6: No disc bulge or herniation. No central canal or foraminal stenosis. T6- 7: Small disc bulge. No foraminal or central canal stenosis. T7-8: Disc desiccation without significant bulge or herniation. No foraminal or central canal stenosis. T8-9: Small disc bulge is present. No foraminal or central canal stenosis. T9-10: Small disc bulge is present as well as mild facet hypertrophy. No foraminal or central canal stenosis. T10-11: A disc bulge is noted as well as right greater than left facet hypertrophy. There is mild right foraminal stenosis. No significant left foraminal orcentral canal stenosis. T11-12: Minimal disc bulge is present as well as mild facet hypertrophy. No significant foraminal or central canal stenosis. T12-L1: A moderatedisc bulge contributes to mild central canal stenosis. No significant foraminal stenosis. LUMBAR SPINE: [facility] NAME: MARK SHARMA [address] [facility] PHYS: Dao Coyne MD : 1950 AGE: 69 SEX: F [place], [place] [address] LOC: Y.MRI PHONE #: [phone] EXAM DATE: 09/28/2020 STATUS: DEP CLI FAX #: [phone] RAD #: [id number] D/C DT PAGE 1 Signed Report (CONTINUED) Patient Name: MARK SHARMA Unit No: [id number] EXAMS: CPT CODE: [id number] MRI T-SPINE W/O CONT 45807 <Continued> Alignment: Grade 1 degenerative spondylolisthesis. Bone Lesion: None present. Fracture: None present. Paraspinal Soft Tissues: Unremarkable. Conus Medullaris: Termination at L1 level. Morphology is normal. L1/2: No significant abnormality. L2/3: Bilateral facet hypertrophy. No significant foraminal or central canal stenosis. L3/4: A broad disc bulge is present as well as facet hypertrophy and ligamentum flavum thickening. There is mild to moderate central canal stenosis as wellas mild left foraminal stenosis. No significant right foraminal narrowing. L4/5: Grade 1 degenerative spondylosis. Right-sided hemilaminotomy defect. Severe bilateral facet hypertrophy and ligamentum flavum thickening contribute to severe central canal stenosis, increased. Mild left, moderate right foraminal stenosis is increased. L5/S1: No significant disc bulge or herniation. Bilateral facet hypertrophy is again demonstrated. There is mild central canal stenosis without significant foraminal narrowing. IMPRESSION: Thoracic Spine: Multilevel thoracic spondylosis, mostly similar to prior exam. Lumbar Spine: Progression in lumbar spondylosis with severe central canal stenosis at L4-L5. at 0743 Reported and signed by: Jed Hoyos M.D. CC: Dao Sanabria MD Brittni hnologist: Avani Gilmore, RT(R) Transcribed D/ (0743) AlphonseSLJ [facility] NAME: MARK SHARMA [address] [facility] PHYS: Dao Coyne MD : 1950 AGE: 69 SEX: F [place] [address] LOC: Y.MRI PHONE #: [phone] EXAM DATE: 09/28/2020 STATUS: DEP CLI FAX #: [phone] RAD #: [id number] D/C DT PAGE 2 Signed Report Patient Name: MARK SHARMA Unit No: [id number] EXAMS: CPT CODE: [id number] MRI T-SPINE W/O CONT 75976 <Continued> OrigPrint D/T: S: 09/29/2020 (0746) [facility] NAME: MARK SHARMA [address] [facility] PHYS: Dao Coyne MD : 1950 AGE: 69 SEX: F [place] [address] LOC: Y.MRIPHONE #: [phone] EXAM DATE: 09/28/2020 STATUS: DEP CLI FAX #: [phone] RAD #: [id number] D/C DT PAGE 3 Signed ReportBasic metabolic [id number] 06:11:00 Test Item Value Reference Interpretation Comments Range Glucose (test code 105 mg/dL 65-99 H Fasting = 2345-7) reference inter kathie For someone wit hout known diabetes, a glucose valuebe tween 100 and 125 mg/ dL is consistent withprediabetes and should be confi rmed with afollow-up test. BUN (test code = 23 mg/dL 7-25 3094-0) Creatinine (test 0.85 mg/dL 0.50-0.99 For patient s >49 code = 2160-0) years of age, the reference limit for Creatinine is approximately 1 3% higher for peopleidentifie d as -Dulce n. EGFR Non-Afr. 70 See_Comment [Automated me ssage] Lao (test code The syst em which = 2775) generated this result transmit ander reference range : > OR = 60 mL/min/1.73m2. The reference range was not used to interpret this result as normal/abnormal . EGFR 81 See_Comment [Automated mes shireen] Lao (test code The syst em which = 45959-0) generated this result transmit ander reference range : > OR = 60 mL/min/1.73m2. The reference range was not used to interpret this result as normal/abnormal . BUN/creatinine NOT APPLICABLE See_Comment [Automated message] ratio (test code = The syste m which 3097-3) generated this result transmit ander reference range : 6 - 22 (calc). The reference range was not used to interpret this result as normal/abnormal . Sodium (test code = 142 mmol/L 192-302 4426-2) Potassium (test 4.6 mmol/L 3.5-5.3 code = 2823-3) Chloride (test code 105 mmol/L 98-110 = 2075-0) CO2 (test code = 31 mmol/L 20-32 2027-9) Calcium (test code 9.5 mg/dL 8.6-10.4 = 42264-4) RAC (test code = Performing RAC) Organization Information: Site ID: [id number] Name: [facility] Address: [address] [place] [id number] Director: Alonso Oconnell Lab Interpretation Abnormal (test code = 12377-5) [facility]- XR FLUORO FOR SPINE [id number] 09:12:00 Patient Name: MARK SHARMA Unit No: [id number] EXAMS: CPT CODE: [id number] XR FLUORO FOR SPINE INJ 71562 THORACIC TRANSFORAMINAL INJECTION REFERRING PHYSICIAN: PREOPERATIVE DIAGNOSIS: Degenerative thoracic disc disease POSTOPERATIVE DIAGNOSIS: Bilateral thoracic radiculopathy PROCEDURES PERFORMED: Fluoroscopically guided needle localization of the bilateral T8 spinal nerve with transforaminal epidural steroid injection/injections. 2. Transforaminal epidurogram/epidurograms at bilateral T8. FINDINGS: Good spread 100% relief covers T7-T9 ANTIBIOTIC: Cefazolin ESTIMATED BLOOD LOSS: Minimal ANESTHESIA: (TIVA) Total intravenous anesthetic (patient intolerant to sedatives and hypnotics) COMPLICATIONS: None DETAILS OF PROCEDURE: After obtaining stable vital signs, informed consent and IV access, with no known contraindications to proceeding, the patient was taken to the fluoroscopy suite and placed in a prone position with all extremities padded and appropriate monitors placed. A sterile prep and drape was performed over the thoracic spine. Using fluoroscopic visualization at each level the insertion site was marked for a paravertebral approach to the foramen.It should be noted that the needle was medial to the head of the rib. Using standard technique, a 27 gauge needle was advanced to the base of the pedicle. It should be noted that the needle was always medial to the head of the rib. In AP view, final positioning was obtained outside the 6 on the clock position on the pedicle. Then, 1 ml of Isovue-300 contrast was injected to produce the epidurograms. No paresthesias were elicited with needle insertion or injec tion and there were no signs of intravascular or intrathecal uptake. Then, 0.5 ml of 4% lidocaine was injected as a test dose with no signs of intravascular or intrathecal uptake. Next, 1 ml of 4% lidocaine and 10 mg of Decadron was injected incrementally with frequent negativeaspirations. There were no signs of intravascular or intrathecal uptake. Each subsequent level was done using the same technique and medications. The patient's vital signs remained stable. The patient was taken to the PACU in good condition. Electronically Signedby Arie Braun on 05/17/2020 at 0912 Reported and signed by: Evan Braun M.D. [facility] NAME: MARK SHARMA [address] [facility] PHYS: DOCDANY - Evan Braun MD [place], [place] [address]CIZ: 1950 AGE: 69 SEX: F LOC:KarissaPITA PHONE #: [phone] EXAM DATE: 05/17/2020 STATUS: REG [facility] FAX #: [phone] RAD #: [id number] D/C DT PAGE 1 Signed Report (CONTINUED) Patient Name: MARK SHARMA Unit No: [id number] EXAMS: CPT CODE: [id number] XR FLUORO FOR SPINE INJ 90140 <Continued> CC: Technologist: Sugar Hunt(R) Transcribed D/ (911) Natasha [facility] [place] NAME: MARK SHARMA [address] [facility] PHYS: Evan Martinez MD [place] [address] : 1950 AGE: 69 SEX: F LOC: CARISSA PHONE #: [phone] EXAM DATE: 05/17/2020 STATUS: REG [facility] FAX #: [phone] RAD #: [id number] D/C DT PAGE 2 Signed Report Patient Name: MARK SHARMA Unit No: [id number] EXAMS: CPT CODE: [id number] XR FLUORO FOR SPINE INJ 03360 <Continued> Orig Print D/T: S: 05/17/2020 (914) [facility] NAME: ZACHARYMARKDAVIS MOY [address] [facility] PHYS: Evan Martinez MD [place] [address] : 1950 AGE: 69 SEX: F LOC: CARISSA PHONE #: [phone] DATE: 05/17/2020 STATUS: REG [facility] FAX #: [phone] RAD #: [id number] D/C DT PAGE 3 Signed Report- XR FLUORO FOR SPINE [id number] 11:46:00 Patient Name: MARK SHARMA Unit No: [id number] EXAMS: CPT CODE: [id number] XR FLUORO FOR SPINE INJ 84961 THORACIC TRANSFORAMINAL INJECTION REFERRING PHYSICIAN: PREOPERATIVE DIAGNOSIS: Degenerative thoracic disc disease POSTOPERATIVE DIAGNOSIS: Right thoracic radiculopathy PROCEDURES PERFORMED: Fluoroscopically guided needle localization of the right T7, right T8 spinal nerve with transforaminal epidural steroid injection/injections. 2. Transforaminal epidurogram/epidurograms at right T7, right T8. FINDINGS: Both poor filling right T7 thoracic pain 100% relief ANTIBIOTIC: Cefazolin ESTIMATED BLOOD LOSS: Minimal ANESTHESIA: (TIVA) Total intravenous anesthetic (patient intolerant to sedatives and hypnotics) COMPLICATIONS: None DETAILS OF PROCEDURE: After obtaining stable vital signs, informed consent and IV access, with no known contraindications to proceeding, the patient was taken to the fluoroscopy suite and placed in a prone position with all extremities padded and appropriatemonitors placed. A sterile prep and drape was performed over the thoracic spine.Using fluoroscopic visualization at each level the insertion site was marked for a paravertebral approach to the foramen.It should be noted that the needle was medial to the head of the rib. Using standard technique, a 27 gauge needle was advanced to the base of the pedicle. It should be noted that the needle was always medial to the head of the rib. In AP view, finalpositioning was obtained outside the 6 on the clock position on the pedicle. Then, 1 ml of Isovue-300 contrast was injected to produce the epidurograms. No paresthesias were elicitedwith needle insertion or injection and there were no signs of intravascular or intrathecal uptake. Then, 0.5 ml of 4% lidocaine was injected as a test dose with no signs of intravascular orintrathecal uptake. Next, 1 ml of 4% lidocaine and 10 mg of Decadron was injected incrementally with frequent negative aspirations. There were no signs of intravascular or intrathecal uptake. Each subsequent level was done using the same technique and medications. The patient's vital signs remained stable. The patient was taken to the PACU in good condition. at 1146 Reported and signed by: Evan Braun M.D. [facility] NAME: MARK SHARMA [address] [facility] PHYS: MITCH - Evan Braun MD [place], [place] [address] : 1950 AGE: 69 SEX: F LOC: KarissaPITA PHONE #: [phone] EXAM DATE: 04/15/2020 STATUS: [facility] FAX #: [phone] RAD #: [id number] D/C DT PAGE 1 Signed Report (CONTINUED) Patient Name: MARK SHARMA Unit No: [id number] EXAMS: CPT CODE: [id number] XR FLUORO FOR SPINE INJ 54657 <Continued> CC: Technologist: Sugar Hunt(R) Transcribed D/ (1146) Jean ClaudeD [facility] NAME: MARK SHARMA [address] [facility] PHYS: Evan Martinez MD [place] [address] : 1950 AGE: 69 SEX: F LOC: CARISSA PHONE #: [phone] EXAM DATE: 04/15/2020 STATUS: [facility] FAX #: [phone] RAD #: [id number] D/C DT PAGE 2 Signed Report Patient Name: MARK SHARMA Unit No: [id number] EXAMS: CPT CODE: [id number] XR FLUORO FOR SPINE INJ 10868 <Continued> Orig Print D/T: S: 04/15/2020 (4044) [facility] NAME: MARK SHARMA [address] PHYS: Evan Martinez MD [place] [address] : 1950 AGE: 69 SEX: F LOC: CARISSA PHONE #: [phone] EXAM DATE: 04/15/2020 STATUS: [facility] FAX #: [phone] RAD #: [id number] D/C DT PAGE 3 Signed Report- XR CHEST 1 [id number] 09:08:00 Patient Name: MARK SHARMA Unit No: [id number] EXAMS: CPT CODE: [id number] XR CHEST 1 V 74226 PORTABLE CHEST April 15, 2020 8:47 AM COMMENT: COMPARISON: November 19, 2019 There is no evidence for pneumothorax or active disease. at 0908 Reported and signed by: Cain Akers MD CC: Evan Braun MD Technologist: CARLOS PACHECO (RT.R) Transcribed D/ (0908) AlphonseJCL [facility] NAME: MARK SHARMA [address] PHYS: Evan Martinez MD : 1950 AGE: 69 SEX: F [place], [place] [address] LOC: CARISSA PHONE #: [phone] EXAM DATE: 04/15/2020 STATUS: [facility] FAX #: [phone] RAD #: [id number] D/C DT PAGE 1 SignedReport Patient Name: MARK SHARMA Unit No: [id number] EXAMS: CPT CODE: [id number] XR CHEST 1 V 84029 <Continued> Orig Print D/T: S: 04/15/2020(0911) [facility] NAME: MARK SHARMA [address] [facility] PHYS: Evan Luis MD : 1950 AGE: 69 SEX: [place], [place] [address] LOC: CARISSA PHONE #: [phone] EXAM DATE: 04/15/2020 STATUS: [facility] FAX #: [phone] RAD #: [id number] D/C DT PAGE 2 Signed Report- XR FLUORO FOR SPINE [id number] 12:12:00 Patient Name: MARK SHARMA Unit No: [id number] Report Has Been Amended EXAMS: CPT CODE: [id number] XR FLUORO FOR SPINE INJ 20292 Addendum -01/26/2020 SIGNED 01/26/2020 ADDENDUM: [id number] RAD/FLLOCSPI Left KNEE INJECTION REFERRING PHYSICIAN: PREOPERATIVE DIAGNOSIS: 1.Left knee arthropathy POSTOPERATIVE DIAGNOSIS: 1left.knee arthropathy . 2.Findings: PROCEDURES PERFORMED: 1.Fluoroscopic guided needle localization of left knee joint. 2.Arthrogram of left knee joint and placement of local anesthetic and steroids in left knee joint. FINDINGS: 1. ANTIBIOTIC:Cefazolin ESTIMATED BLOOD LOSS: Minimal ANESTHESIA:(TIVA) Total intravenous anesthetic (patient intolerant to sedatives and hypnotics) COMPLICATIONS:None DETAILS OF PROCEDURE: After obtaining stable vital signs, informed consent and IV access, with no known contraindications to proceeding, the patient was taken to the fluoroscopy suite and placed in a supine position with all extremities padded and appropriate monitors placed. Using standard technique, and fluoroscopic guidance, a 27-gauge needle was advanced intothe left knee joint and 2 mL of Isovue-300 contrast was injected to produce an arthrogram. No paresthesias were noted with placement of the needle. The results of the arthrogram are detailed above. Then 2 mL of 0.75 percent Marcaine and 2 mL of 4% lidocaine and 20 mg of triamcinolone was injected into the joint. Areas was cleaned of the prep and the patient was taken to the recovery room in stable condition. at 1212 Reported and signed by: Evan Braun M.D. Report THORACIC TRANSFORAMINAL INJECTION [facility] NAME: MARK SHARMA [address] [facility] PHYS: MITCH - Evan Braun MD [place], [place] [address] : 1950 AGE: 68 SEX: F LOC: KarissaPITA PHONE #: [phone] EXAM DATE: 11/19/2019 STATUS: [facility] FAX #: [phone] RAD #: [id number] D/C DT PAGE 1 Signed Report (CONTINUED) Patient Name: MARK SHARMA Unit No: [id number] Report Has Been Amended EXAMS: CPT CODE: [id number] XR FLUORO FOR SPINE INJ 69576 <Continued> REFERRING PHYSICIAN: PREOPERATIVE DIAGNOSIS: Degenerative thoracic disc disease POSTOPERATIVE DIAGNOSIS: Right thoracic radiculopathy PROCEDURES PERFORMED: Fluoroscopically guided needle localization of the right T8, right T9 spinal nerve with transforaminal epidural steroid injection/injections. 2. Transforaminal epidurogram/epidurograms at right T8, right T9. FINDINGS: Concordant provocation right T8 100% relief ANTIBIOTIC: Cefazolin ESTIMATED BLOOD LOSS: Minimal ANESTHESIA: (TIVA) Total intravenous anesthetic (patient intolerant to sedatives and hypnotics) COMPLICATIONS: None DETAILS OF PROCEDURE: After obtaining stable vital signs, informed consent and IV access, with no known contraindications to proceeding, the patient was taken to the fluoroscopy suite and placed in a prone position with all extremities padded and appropriate monitors placed. A sterile prep and drape was performed over the thoracic spine. Using fluoroscopic visualization at each level the insertion site was marked for a paravertebral approach to the foramen.It should be noted that the needle was medial to the head of the rib. Using standard technique, a 27 gauge needle was advanced to the base of the pedicle. It should be noted that the needle was always medial to the head of the rib. In AP view, final positioning was obtained outside the 6 on the clock position on the pedicle. Then, 1 ml of Isovue-300 contrast was injected to produce the epidurograms. No paresthesias were elicited with needle insertion or injection and there were no signs of intravascular or intrathecal uptake. Then, 0.5 mlof 4% lidocaine was injected as a test dose with no signs of intravascular or intrathecal uptake. Next, 1 ml of 4% lidocaine and 10 mg of Decadron was injected incrementally with frequent negative aspirations. There were no signs of intravascular or intrathecal uptake. Each sub sequent level was done using the same technique and medications. The patient's vital signs remained stable. The patient was taken to the PACU in good condition. [facility] NAME: ZACHARYMARKDAVIS MOY [address] [facility] PHYS: Evan Martinez MD [place], [place] [address] : 1950 AGE: 68 SEX: F LOC: CARISSA PHONE #: [phone] EXAM DATE: 11/19/2019 STATUS: [facility] FAX #: [phone] RAD #: [id number] D/C DT PAGE 2 Signed Report(CONTINUED) Patient Name: MARK SHARMA Unit No: [id number] Report Has Been Amended EXAMS: CPT CODE: [id number] XR FLUORO FOR SPINE INJ 34102 <Continued> at 1117 Reported and signed by: Evan Braun M.D. CC: Evan Crow MD Technologist: JACKSON FARIAS RT(R) Transcribed D/ (1117) t.JACKELYN.UVD [facility] [place] NAME: MARK SHARMA [address] [facility] PHYS: Evan Martinez MD [place], [place] [address] : 1950 AGE: 68 SEX: F LOC: CARISSA PHONE #: [phone] DATE: 11/19/2019 STATUS: [facility] FAX #: [phone] RAD #: [id number] D/C DT PAGE 3 Signed Report Patient Name: MARK SHARMA Unit No: [id number] Report Has Been Amended EXAMS: CPT CODE: [id number] XR FLUORO FOR SPINE INJ 92510 <Continued> Orig Print D/T: S: (1120) [facility] NAME: MARK SHARMA [address] [facility] PHYS:MITCH - Evan Braun MD [place], [place] [address] : 1950 AGE: 68 SEX: F LOC: CARISSA PHONE #: [phone] EXAM DATE: 11/19/2019 STATUS: [facility] FAX #: [phone] RAD #: [id number] D/C DT PAGE 4 Signed Report- XR CHEST 1 [id number] 07:19:00 Patient Name: MARK SHARMA Unit No: [id number] EXAMS: CPT CODE: [id number] XR CHEST 1 V 46241 PORTABLE CHEST November 19, 2019 8:11 AM COMMENT: COMPARISON: October 06, 2019 There is no evidence for pneumothorax or active disease. at 0719 Reported and signed by: Cain Akers MD CC: Evan Braun MD Technologist: CARLOS PACHECO (RT.R) Transcribed D/ (07) AnkurL [facility] NAME: MARK SHARMA [address] [facility] PHYS: Evan Martinez MD : 1950 AGE: 68 SEX: F [place], [place] [address] LOC: CARISSA PHONE #: [phone] EXAM DATE: 11/19/2019 STATUS: [facility] FAX #: RAD #: [id number] D/C DT PAGE 1 Signed Report Patient Name: MARK SHARMA Unit No: [id number] EXAMS: CPT CODE: [id number] XR CHEST1 V 90692 <Continued> Orig Print D/T: S: 11/20/2019 (0723) [facility] NAME: MARK SHARMA [address] [facility] PHYS: MITCH - Evan Braun MD : 1950 AGE: 68 SEX: F [place], [place] [address] LOC: CARISSA PHONE #: [phone] EXAM DATE: 11/19/2019 STATUS: [facility] FAX #: [phone] RAD #: [id number] D/C DT PAGE 2 Signed Report- XR FLUORO FOR SPINE [id number] 11:17:00 Patient Name: MARK SHARMA Unit No: [id number] EXAMS: CPT CODE: [id number] XR FLUORO FOR SPINE INJ 71731 THORACIC TRANSFORAMINAL INJECTION REFERRING PHYSICIAN: PREOPERATIVE DIAGNOSIS: Degenerative thoracic disc disease POSTOPERATIVE DIAGNOSIS: Right thoracic radiculopathy PROCEDURES PERFORMED: Fluoroscopically guided needle localization of the right T8, right T9 spinal nerve with transforaminal epidural steroid injection/injections. 2. Transforaminal epidurogram/epidurograms at right T8, right T9. FINDINGS: Concordant provocation right T8 100% relief ANTIBIOTIC: Cefazolin ESTIMATED BLOOD LOSS: Minimal ANESTHESIA: (TIVA) Total intravenous anesthetic (patient intolerant to sedatives and hypnotics) COMPLICATIONS: None DETAILS OF PROCEDURE: After obtaining stable vital signs, informed consent and IV access, with no known contraindications to proceeding, the patient was taken to the fluoroscopy suite and placed in a prone position with all extremities padded and appropriate monitorsplaced. A sterile prep and drape was performed over the thoracic spine. Using fluoroscopic visualization at each level the insertion site was marked for a paravertebral approach to the foramen.It should be noted that the needle was medial to the head of the rib. Using standard technique, a 27 gauge needle was advanced to the base of the pedicle. It shouldbe noted that the needle was always medial to the head of the rib. In AP view, final positioning was obtained outside the 6 on the clock position on the pedicle. Then, 1 ml of Isovue-300 c ontrast was injected to produce the epidurograms. No paresthesias were elicited with needle insertion or injection and there were no signs of intravascular or intrathecal uptake. Then, 0.5 ml of 4% lidocaine was injected as a test dose with no signs of intravascular or intrathecal uptake. Next, 1 ml of 4% lidocaine and 10 mg of Decadron was injected incrementally with frequent negative aspirations. There were no signs of intravascular or intrathecal uptake.Each subsequent level was done using the same technique and medications. The patient's vital signs remained stable. The patient was taken to the PACU in good condition. at 1117 Reported and signed by: Evan Braun M.D. [facility] NAME: MARK SHARMA CHINMAY [address] [facility] PHYS: Evan Martinez MD [place] [address] : 1950 AGE: 68 SEX: F LOC: CARISSA PHONE #: [phone] EXAM DATE: 11/19/2019 STATUS: [facility] FAX #: [phone] RAD #: [id number] D/C DT PAGE 1 Signed Report (CONTINUED) Patient Name: MARK SHARMA Unit No: [id number] EXAMS: CPT CODE: [id number] XR FLUORO FOR SPINE INJ 18204 <Continued> CC: Evan Braun MD Technologist: JACKSON FARIAS RT(R) Transcribed D/ (1117) t.SDR.UVD [facility] [place] NAME: ZACHARYMARK MOY [address] [facility] PHYS: Evan Martinez MD [place], [place] [address] : 1950 AGE: 68 SEX: F LOC: CARISSA PHONE #: [phone] EXAM DATE: 11/19/2019 STATUS: [facility] FAX #: [phone] RAD #: [id number] D/C DT PAGE 2 Signed Report Patient Name: MARK SHARMA Unit No: [id number] EXAMS: CPT CODE: [id number] XRFLUORO FOR SPINE INJ 32668 <Continued> Orig Print D/T: S: 11/19/2019 (1120) [facility] NAME: MARK SHARMA [address] [facility] PHYS: Evan Martinez MD [place], [place] [address] : 1950 AGE: 68SEX: F LOC: CARISSA PHONE #: [phone] EXAM DATE: 11/19/2019 STATUS: [facility] FAX #: [phone] RAD #: [id number] D/C DT PAGE 3 Signed Report- XR CHEST 1 [id number] 20:06:00 Patient Name: MARK SHARMA Unit No: [id number] EXAMS: CPT CODE: [id number] XR CHEST 1 V 91073 IMAGES PROVIDED: One frontal view of the chest is provided. COMPARISON: None FINDINGS: The lungs are clear. The heart size and pulmonary vasculature are normal. No pleural effusion or pneumothorax. IMPRESSION: Unremarkable exam of the chest. at 2006 Reported and signed by: Jed Hoyos M.D. CC: Evan Braun MD Technologist: HEATH MONTOYA RT(R) Transcribed D/T: 05/2020 (2005) tHOLLYSLJ [facility] NAME: MARK SHARMA [address] [facility] PHYS: Evan Martinez MD : 1950 AGE: 68 SEX: F [place], [place] [address] LOC: CARISSA PHONE #: [phone] EXAM DATE: 10/06/2019 STATUS: [facility] FAX #: [phone] RAD #: [id number] D/C DT PAGE 1 Signed Report Patient Name: MARK SHARMA Unit No: [id number] EXAMS:CPT CODE: [id number] XR CHEST 1 V 82138 <Continued> Orig Print D/T: S: 10/08/2019 (2008) [facility] NAME: MARK SHARMA [address] [facility] PHYS: DOCUD - DoctorEvan MDDOB: 1950 AGE: 68 SEX: F [place], [place] [address] LOC:CARISSA PHONE #: [phone] EXAM DATE: 10/06/2019 STATUS: [facility] FAX #: [phone] RAD #: [id number] D/C DT PAGE 2 Signed Report- XR FLUORO FOR SPINE [id number] 08:52:00 Patient Name: MARK SHARMA Unit No: [id number] EXAMS: CPT CODE: [id number] XR FLUORO FOR SPINE INJ 09722 THORACIC TRANSFORAMINAL INJECTION REFERRING PHYSICIAN: PREOPERATIVE DIAGNOSIS: Degenerative thoracic disc disease POSTOPERATIVE DIAGNOSIS: Thoracic radiculopathy PROCEDURES PERFORMED: Fluoroscopically guided needle localization of the right T7, left T9 spinal nerve with transforaminal epidural steroid injectio n/injections. 2. Transforaminal epidurogram/epidurograms at right T7, left T9. FINDINGS: Good spread 100% relief ANTIBIOTIC: Cefazolin ESTIMATED BLOOD LOSS: Minimal ANESTHESIA: (TIVA) Total intravenous anesthetic (patient intolerant to sedatives and hypnotics) COMPLICATIONS: None DETAILS OFPROCEDURE: After obtaining stable vital signs, informed consent and IV access, with no known contraindications to proceeding, the patient was taken to the fluoroscopy suite and placed in a prone position with all extremities padded and appropriate monitors placed. A sterile prep and drape was performed over the thoracic spine. Using fluoroscopic visualization at each level the insertion site was marked for a paravertebral approach to the foramen.It should be noted that the needle was medial to the head of the rib. Using standard technique, a 27 gauge needle was advanced to the base of the pedicle. It should be noted that the needle was always medial to the head of the rib. In AP view, final positioning was obtained outside the6 on the clock position on the pedicle. Then, 1 ml of Isovue-300 contrast was injected to produce the epidurograms. No paresthesias were elicited with needle insertion or injection and there were no signs of intravascular or intrathecal uptake. Then, 0.5 ml of 4% lidocaine was injected as a test dose with no signs of intravascular or intrathecal uptake. Next, 1 mlof 4% lidocaine and 10 mg of Decadron was injected incrementally with frequent negative aspirations. There were no signs of intravascular or intrathecal uptake. Each subsequent level was done using the same technique and medications. The patient's vital signs remained stable. The patient was taken to the PACU in good condition. at 0852 Reported and signed by: Evan Braun M.D. [facility] NAME: MARK SHARMALEY [address] [facility] PHYS: Evan Martinez MD [place] [address] : 1950 AGE: 68 SEX: F LOC: CARISSA PHONE #: [phone] EXAM DATE: 10/06/2019 STATUS: [facility] FAX #: [phone] RAD #: [id number] D/C DT PAGE 1 Signed Report (CONTINUED) Patient Name: MARK SHARMA Unit No: [id number] EXAMS: CPT CODE: [id number] XR FLUORO FOR SPINE INJ 94014 <Continued> CC: Technologist: Sugar Hunt(Mayi) Transcribed D/ (0852) Natasha [facility] NAME: ZACHARYMARK MOY [address] [facility] PHYS: Evan Martinez MD [place] [address] : 1950 AGE: 68 SEX: F LOC: CARISSA PHONE #: [phone] EXAM DATE: 10/06/2019 STATUS: [facility] FAX #: [phone] RAD #: [id number] D/C DT PAGE 2 Signed Report Patient Name: MARK SHARMA Unit No: [id number] EXAMS: CPT CODE: [id number] XR FLUORO FOR SPINE INJ 88942 <Continued> Orig Print D/T: S: 10/06/2019 (0856) [facility] NAME: MARK SHARMA CHINMAY [address] [facility] PHYS: MITCH - DoctorEvan MD [place], [place] [address] : 1950 AGE: 68 SEX: F LOC: CARISSA PHONE #: [phone] EXAM DATE: 10/06/2019 STATUS: [facility] FAX #: [phone] RAD #: [id number] D/C DT PAGE 3 Signed Report- US ABDOMEN [id number] 09:51:00 Name: MARK SHARMA [facility] [place] : 1950 Age/S: 68 / F [address] [place] [address] Bl Unit #: [id number] Loc: Eugenio [id number] Phys: Salvador Richter MD Acct: [id number] Dis Date: Status: DIS IN PHONE #: [phone] Exam Date: 04/22/2019 1500 FAX #: [phone] Reason: ASCITIES Report Has Been Amended EXAMS: CPT CODE: [id number] US ABDOMEN LTD 74013 Addendum - 06/30/2019 SIGNED 06/30/2019 ADDENDUM: [id number] US/USABDLTD ADDENDUM: The technical component of the study was performed by supervised physician assistant to the ceo, Romeo Goss. at 0953 Reported and si gned by: Van Boucher M.D. Report PROCEDURE: Ultrasound-guided paracentesis. INDICATION: 68-year-old female with large volume ascites COMPARISON: None TECHNIQUE: The technical component of the study was performed by supervised physician assistant to the ceo. The technicalreport is available in the electronic medical record. Informed consent was obtained prior to the procedure. A total of 5 L of ceci peritoneal fluid was removed. IMPRESSION: 1. Technically successful ultrasound- guided paracentesis. SL: [id number] at 1611 Reported and signed by: Van Boucher M.D. CC: Salvador Richter MD; Adolfo Snyder Technologist: India Fuentes RDMS (AB) (OB) Trnscb Date/Time: 04/22/2019 (1610) [email or web address] Orig Print D/T: S: 04/22/2019 (1614) Probe: PAGE 1 Signed Report- US PARACENTESIS W [id number] 09:51:00 Name: MARK SHARMA [facility] [place] : 1950 Age/S: 68 / F [address] [place] [address] Unit #: [id number] Loc: Eugenio [id number] Phys: Salu Fowler MD Acct: [id number] Dis Date: Status: DIS IN PHONE #: [phone] Exam Date: 04/22/2019 1608 FAX #: [phone] Reason: u/s guideD PARACENTHESIS - LARGE VOLUME ASCIIIS Report Has Been Amended EXAMS: CPT CODE: [id number] US PARACENTESIS W IMAGE [id number] Addendum - 06/30/2019 SIGNED 06/30/2019 ADDENDUM: [id number] US/PARACENTWI ADDENDUM: The technical co mponent of the study was performed by supervised physician assistant to the ceo, Romeo Goss. at 0925 Reported andsigned by: Van Boucher M.D. Report PROCEDURE: Ultrasound-guided paracentesis. INDICATION: 68-year-old female with large volume ascites COMPARISON: None TECHNIQUE: Thetechnical component of the study was performed by supervised physician assistant to the ceo. The technical report is available in the electronic medical record. Informed consent was obtained prior to the procedure. A total of 5 L of ceci peritoneal fluid was removed. IMPRESSION: 1. Technically successful ultrasound-guided paracentesis. SL: [id number] at 1611 Reported and signed by: Van Boucher M.D. CC: Salvador Richter MD; Adolfo Snyder; Saul Fowler MD Technologist: India Fuentes RDMS () (OB) Trnscb Date/Time: 04/22/2019 (161) [email or web address] Orig Print D/T: S: 04/22/2019 (1614) Probe: PAGE 1 Signed Report- US ABDOMEN [id number] 13:44:00 Name: MARK SHARMA : 1950 Age/S: 68 / F [address] [place] [address] Unit #: [id number] Loc: Becker [id number] Phys: Sharyn Moncada MD Acct: [id number] Dis Date: Status: DEP CLI PHONE #: [phone] Exam Date: 04/30/2019 0847 FAX #: [phone] Reason: ASCITES, PARACENTESIS Report Has Been Amended EXAMS: CPT CODE: [id number] US ABDOMEN LTD 23071 Addendum - 06/02/2019 SIGNED 06/02/2019 ADDENDUM: [id number] US/USABDLTD Performed and at 1344 Reported and signed by: Fermin Galvan D.O. Report EXAM: US ABDOMEN LIMITED PROCEDURE: Ultrasound-guided paracentesis. INDICATION: Ascites. COMPARISON: None. TECHNIQUE: Right abdominal ultrasound interrogation was performed, which showed moderate ascites. The procedure, risks, benefits and alternatives were discussed. Informedconsent was obtained. Timeout was performed prior to the procedure. The technical component of this study was performed by directly supervised physician assistant to the ceo. The technical report is available in the electronic medical record. FINDINGS: Total volume of 7 L of clear yellow ascites was removed. IMPRESSION: 1. Moderate ascites. 2. Technically successful ultrasound-guided paracentesis. PAGE 1 Signed Report (CONTINUED) Name: MARK SHARMA : 1950 Age/S: 68 / F [address] [place] [address] Unit #: [id number] Loc: [place] [address] Phys: Sharyn Moncada MD Acct: [id number] Dis Date: Status: [facility] CLI PHONE #: [phone] Exam Date: 04/30/2019 0847 FAX #: [phone] Reason: ASCITES, PARACENTESIS Report Has Been Amended EXAMS: CPT CODE: [id number] US ABDOMEN LTD 32977 <Continued> at 0933 Reported and signed by: Fermin Galvan D.O. CC: Adolfo Snyder; Sharyn Moncada MD Technologist: Brandy Alatorre Trnnhb Date/Time: 04/30/2019 (932) [email or web address] Orig Print D/T: S: 04/30/2019 (936) Probe: PAGE 2 Signed Report - US PARACENTESIS W [id number] 13:44:00 Name: MARK SHARMA [facility] : 1950 Age/S: 68 / F [address] [place] [address] Bl Unit #: [id number] Loc: Becker [id number] Phys: Sharyn Moncada MD Acct: [id number] Dis Date: Status: DEP CLI PHONE #: [phone] Exam Date: 04/30/2019 08 FAX #: [phone] Reason: POSST OP ASCITES Report Has Been Amended EXAMS: CPT CODE: [id number] US PARACENTESIS W IMAGE [id number] Addendum - 06/02/2019 SIGNED 06/02/2019 ADDENDUM: [id number] US/PARACENTWI Performed and at 1344 Reported and signed by: Fermin Galvan D.O. Report EXAM: US ABDOMEN LIMITED PROCEDURE: Ultrasound-guided paracentesis. INDICATION: Ascites. COMPARISON: None. TECHNIQUE: Right abdominal ultrasound interrogation was performed, which showed moderate ascites. The procedure, risks, benefits and alternatives were discussed. Informed consent was obtained. Timeout was performed prior to the procedure. The technical component of this study was performed by directly supervised physician assistant to the ceo. The technical report is available in the electronic medical record. FINDINGS: Total volume of 7 L of clear yellow ascites was removed. IMPRESSION: 1. Moderate ascites. 2. Technically successful ultrasound-guided paracentesis. PAGE 1 Signed Report (CONTINUED) [facility] 1950 Age[facility]S: 68 / F [address] [facility] [address] [id number] Loc: DORIS Becker [address] Phys: Sharyn Moncada Acct: [id number] Dis Date: Status:DEP CLI PHONE #: [phone] Exam Date: 04/30/2019 08 FAX #: [phone] Reason: POSST OP ASCITES Report Has Been Amended EXAMS: CPT CODE: [id number] US PARACENTESIS W IMAGE 44859 <Continued> Electronically Signed by Munir Galvan on 04/30/2019 at 0933 Reported and signed by: Fermin Galvan D.O. CC: Adolfo Snyder; Sharyn Moncada MD Technologist: Brandy Alatorre Trnnhb Date/Time: 04/30/2019 (932) [email or web address] Orig Print D/T: S: 04/30/2019 (0937) Probe: PAGE 2 Signed Report- US ABDOMEN [id number] 09:33:00 Name: MARK SHARMA [facility] : 1950 Age/S: 68 / F [address] [place] [address] Unit #: [id number] Loc: DORIS [id number] Phys: Sharyn Moncada MD Acct: [id number] Dis Date: Status: REG CLI PHONE #: [phone] Exam Date: 04/30/2019 08 FAX #: [phone] Reason: ASCITES, PARACENTESIS EXAMS: CPTCODE: [id number] US ABDOMEN LTD 58411 EXAM: US ABDOMEN LIMITED PROCEDURE: Ultrasound- guided paracentesis. INDICATION: Ascites. COMPARISON: None. TECHNIQUE: Right abdominal ultr asound interrogation was performed, which showed moderate ascites. The procedure, risks, benefits and alternatives were discussed. Informed consent was obtained. Timeout was performed prior to the procedure. The technical component of this study was performed by directly supervised physician assistant to the ceo. The technical report is available in the electronic medical record. FINDINGS: Total volume of 7 L of clear yellow ascites was removed. IMPRESSION: 1. Moderate ascites. 2. Technically successful ultrasound-guided paracentesis. at 0933 Reported and signed by: Fermin Galvan D.O. CC: Adolfo Snyder; Sharyn Moncada MD Technologist: Brandy Alatorre Trnscb Date/Time: 04/30/2019 (932) [email or web address] Orig Print D/T: S: 04/30/2019 (936) Probe: PAGE1 Signed Report- US PARACENTESIS W [id number] 09:33:00 Name: MARK SHARMA [facility] : 1950 Age/S: 68 / F [address] [place] [address] Unit #: [id number] Loc: [facility] [id number] Phys: Sharyn Moncada MD Acct: [id number] Dis Date: Status: REG CLI PHONE #: [phone] Exam Date: 04/30/2019 0847 FAX #: [phone] Reason: POSST OP ASCITES EXAMS: CPTCODE: [id number] US PARACENTESIS W IMAGE 99675 EXAM: US ABD OMEN LIMITED PROCEDURE: Ultrasound-guided paracentesis. INDICATION: Ascites. COMPARISON: None. TECHNIQUE: Right abdominal ultrasound interrogation was performed, which showed moderate ascites. The procedure, risks, benefits and alternatives were discussed. Informed consent was obtained. Timeout was performed prior to the procedure. The technical component of this study was performed by directly supervised physician assistant to the ceo. The technical report is available in the electronic medical record. FINDINGS: Total volume of 7 L of clear yellow ascites was removed. IMPRESSION: 1. Moderate ascites. 2. Technically successful ultrasound-guided paracentesis. at 0933 Reported and signed by: Fermin Galvan D.O. CC: Adolfo Snyder; Sharyn Moncada MD Technologist: Brandy Alatorre Trnscb Date/Time: 04/30/2019 (932) [email or web address] Orig Print D/T: S: 04/30/2019 (0937) Probe: PAGE1 Signed ReportSURGICAL [id number] 15:07:00 RUN DATE: 04/24/19 [place] [facility] *LIVE* PAGE 1 RUN TIME: 1507 Specimen Inquiry RUN USER: INTERFACE PATIENT: MARK SHARMA LOC: [facility] U #: [id number] AGE/SX: 68/F ROOM: [facility] RE04/14/19[facility] DR: Sharyn Moncada MD : 50 BED: 1 DIS: 04/16/19 STATUS: DIS IN TLOC: SPEC #: [id number] RECD: 04/15/19 STATUS: LENNY DEAN #: [id number] LIBRADO: 04/15/[address] [facility] DR: Sharyn Moncada MD ENTERED: 04/17/19 SP TYPE: SURG SPEC OTHR DR: Adolfo Snyder MD ORDERED: GM LEVEL 4 CODES: [id number] - SOFT TISSUES, N [id number] - URINARY BLADDER [id number]- UTERUS, NOS H80261 - FALLOPIAN TUBE RB8091 - LYMPH NODE, NOS RA3110 - OMENTUM, NOS [id number] - PELVIS, NOS COPIES TO: Adolfo Snyder MD [address] [facility] [address] [place] [address] Sharyn Moncada MD [address] [place] [address] PROCEDURES: GM LEVEL 4 (Incomplete) TISSUES: 1. PELVIS, NOS - Pelvic, washing 2. UTERUS, NOS - Uterus, cervix, left tube and ovary, exc 3. FALLOPIAN TUBE, NOS - Fallopian tube, and ovary, right, excisi 4. PELVIS, NOS - Cul-de-sac, bx. 5. SOFT TISSUES, NOS - Soft tissue, right and left gutter,segm 6. LYMPH NODE, NOS - Lymph nodes, left and right 7. URINARY BLADDER, NOS - Bladder, peritoneal, bx. 8. LYMPH NODE, NOS - Lymph node, periaortic and appendix, dis 9. SOFT TISSUES, NOS - Soft tissue, left pelvic sidewall, excis 10. 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 Uterus, cervix, left tube and ovary: Chronic cervicitis, endocervical polyp; cystic atrophy of endometrium, endometrial polyp; leiomyomata; left fallopian tube and ovary without significant histopathology. CONTINUED ON NEXT PAGE RUN DATE: 04/24/19 [facility] *LIVE* PAGE 2 RUN TIME: 1507 Specimen Inquiry RUN USER: INTERFACE ------ ------SPEC #: [id number] PATIENT: MARK SHARMA #[id number] (Continued) FINAL DIAGNOSIS (Continued) Pelvic washings and soft tissue, right gutter, left pelvic sidewall, left gutter, bladder, cul-de-sac, omentum 1-3, appendix, segments: No metastatic tumor identified. Lymph nodes, left and right pelvic, periaortic nodes, dissection: No metastatic tumor identified. GROSS AND MICROSCOPIC FROZEN DIAGNOSIS (LW): Adnexa, right: Borderline mucinous neoplasm, final diagnosis deferred to permanent sections. GROSS DESCRIPTION: Received are 70 cc of light yellow brownish pelvic washing for cytologic evaluation. Received fresh designated right ovary and fallopian tube is a cystic mass measuring 22.5 x 13 x 17 cm with an attached tube measuring 3.5 x 0.5 cm. The specimen weighs 2423 g together. The serosal surface appears intact. Sections are submitted as (A) and (B) for frozen diagnosis. Additional sections are submitted as (C)-(O). Received in formalin labeled right gutter is a 1.1 cm portion of fibromembranous tissue with attached adipose (P). Received in formalin labeled bladder peritoneal biopsy is a 4.1 cm strip of purple rivero fibromembranous tissue (Q). Received in formalin labeled left sidewall is a 0.5 cm pink-rivero tissue fragment (R). Received in formalin labeled left gutter is a 1.4 cm portion of purple rivero fibromembranous tissue (S). Received in formalin labeled uterus, cervix, left ovary and fallopian 2 is a 83 g 8 x 4.5 x 2.5 cm uterus with a 2.2 cm in diameter cervix with a rivero ectocervix and a 0.3 cm cervical os. The left fallopian tube has previously been transected and measures 3.5 cm in length 0.6 cm in diameter, the left ovary measures 2.7 cm in greatest dimension is white-rivero and cerebriform. The endometrium is rivero and smooth predominantly, there is a 1.1 cm pink-rivero polyp. There is also a 2.2 cm endocervical polyp. The myometrium measures up to 1.1 cm with white whirled nodules measuring up to 0.7 cm. Submitted (T)-(U) cervix (V) cervix with polyp (W)-(Y) corpus uteri (Z) endometrial polyp (AA)-(BB) left adnexa. Received in formalin labeled cul-de-sac is a 1.3 cm pink-rivero tissue fragment(CC). Received in formalin labeled left pelvic lymph nodes is a 3.1 cm aggregate of lymph node containing adipose (DD)-(EE). Received in formalin labeled right pelvic lymph nodes is a 4.1 cm aggregate of lymph node containing adipose (FF)-(II). Received in formalin labeled periaorticlymph nodes is a 2.4 cm aggregate of lymph node containing adipose (JJ)- (KK). Received informalin labeled omentum #1 is a 13 cm in greatest dimension portion of soft lobulated adipose (LL)-(NN). Received in formalin labeled omentum #2 is a 8.5 cm portion of soft yellow adipose (OO)-(QQ). Received in formalin labeled omentum #3 is a 15 cm in greatest dimension portion of lobulated soft adipose are (RR)-(TT). Received in formalin labeled appendix is a 5 cm in length1 cm in diameter vermiform appendix. CONTINUED ON NEXT PAGE -- RUN DATE: 04/24/19 [place] [facility] *LIVE* PAGE 3 RUN TIME: 1507 Specimen Inquiry RUN USER: INTERFACE SPEC #: [id number] PATIENT: MARK SHARMA #[id number] (Continued) GROSS AND MICROSCOPIC (Continued) The margin of the appendix is inked black submitted (UU)-(WW). MICROSCOPIC EXAMINATION: Cell block and cytospin smears of the pelvic washings reveal mixed inflammation and reactive/atypical mesothelial cells. No cells diagnostic of malignancy are identified. Sections of the right ovary reveal a multiloculated cystic structure lined by columnar are epithelium with mucinous differentiation. The nuclei show focal areas with higher grade dysplastic changes, mitotic figures and areas of stratification including papillary and cribriform growth patterns. No definite invasion is identified. The right fallopian tube is unremarkable. Sections of the right gutter and left pelvic sidewall showno evidence of malignancy. The left gutter shows some mesothelial hyperplasia, no definite malignancy is identified. Sections of the bladder biopsy show focal mesothelial cysts, no malignancy is identified. The cul-de-sac shows focal microcalcifications, no definite malignancy is identified. Sections of the cervix show nabothian cysts, squamous metaplasia and mild chronic inflammation. There is an endocervical polyp present. Sections of the endometrium show changes of cystic atrophy. Benign endometrial glands are present within the myometrium. The muscular lesions are well circumscribed without significant nuclear atypia or necrosis. There is an endometrial polyp present with dilated glands. The left fallopian tube and ovary are unremarkable. The ovary does contain small physiologic cysts and endosalpingosis. The left pelvic lymph nodes (2 nodes), right pelvic lymph nodes (6 nodes), and periaortic nodes (2 nodes) show no evidence of metastatic carcinoma. Sections of the omental tissue #1 through 3 show some mesothelial hyperplasia and fibrosis. No definite malignancy is identified. Sections of the appendix show no evidence of malignancy, 1 benign lymph node is present in the surrounding soft tissue. POST-OP DIAGNOSIS Pelvic mass PRE-OP DIAGNOSIS Pelvic mass CONTINUED ON NEXT PAGE RUN DATE: 04/24/19 [facility] *[facility]* PAGE 4 RUN TIME: 1507 Specimen Inquiry RUN USER: INTERFACE ----- -------SPEC #: [id number] PATIENT: MARK SHARMA #[id number] (Continued) REVIEWED BY: LW SYNOPTIC REPORT *Specimen: Uterus, bilateral adnexa. *Procedure:Hysterectomy with bilateral salpingo-oophorectomy. *Lymph Node Sampling: Bilateral pelvic, para-aortic. *Specimen Integrity: Right Ovary (if applicable):Intact. Left Ovary (if applicable): Intact. *Primary Tumor Site: Right ovary. *Ovarian Surface Involvement: Not identified. *Tumor Size: Right Ovary: 22.5 cm. *Histologic Type:Mucinous borderline tumor with intraepithelial carcinoma. *Histologic Grade: Well differentiated. *Implants: Not identified. *Extent of Involvement of Other Tissues/Organs: N/A. *Peritoneal Ascitic Fluid: No malignancu identified. *Pleural Fluid: Not performed. Lymph Nodes: Para-aortic: Number examined: 2. Number positive: 0. Left and Right Pelvic nodes: Number examined: 8. Number positive: 0. *TNM: T1a N0 MX. Signed SIGNATURE ON FILE KristinBenito Patricia RASHID 04/24/19 1507 END OF REPORT BASIC METABOLIC [id number] 08:17:00 Test Item Value Reference Range Interpretation Comments SODIUM (test code = NA) 140 mEq/L 134-147 N POTASSIUM (test code = 3.6 mEq/L 3.4-5.0 N K) CHLORIDE (test code = 114 mEq/L 100-108 H CL) CARBON DIOXIDE (test 19 mEq/L 21-33 L code = CO2) ANION GAP (test code = 11 0-20 N GAP) GLUCOSE (test code = 102 mg/dL 70-110 N GLU) BLOOD UREA NITROGEN 15 mg/dL 7-18 N (test code = BUN) GLOMERULAR FILTRATION 62.3 80-90 L Units of measure = RATE (test code = GFR) ml/mi n/1.73 m2 CREATININE (test code = 0.9 mg/dL 0.6-1.3 CREAT) CALCIUM (test code = 7.7 mg/dL 8.0-10.5 L CA) CBC W/AUTO [id number] 08:02:00 Test Item Value Reference Range Interpretation Comments WHITE BLOOD CELL (test code = 10.73 x10 3/uL 4.5-11.0 N WBC) RED BLOOD CELL (test code = 3.23 x10 6/uL 3.54-5.02 L RBC) HEMOGLOBIN (test code = HGB) 9.9 g/dL 11.0-15.0 L HEMATOCRIT (test code = HCT) 30.8 % 33.0-45.0 L MEAN CELL VOLUME (test code = 95.4 fL 81.0-99.0 N MCV) MEAN CELL HGB (test code = 30.7 pg 27.0-33.0 N MCH) MEAN CELL HGB CONCETRATION 32.1 g/dL 33.0-37.0 L (test code = MCHC) RED CELL DISTRIBUTION WIDTH CV 13.7 % 11.5-14.5 N (test code = RDW) RED CELL DISTRIBUTION WIDTH SD 48.0 fL 37.0-54.0 N (test code = RDW-SD) PLATELET COUNT (test code = 346 x10 3/uL 150-400 N PLT) MEAN PLATELET VOLUME (test 9.3 fL 7.0-9.0 H code = MPV) NEUTROPHIL % (test code = NT%) 83.0 % 56.0-77.0 H IMMATURE GRANULOCYTE % (test 1.2 % 0.0-2.0 N code = IG%) LYMPHOCYTE % (test code = LY%) 9.1 % 14.0-32.0 L MONOCYTE % (test code = MO%) 3.6 % 4.8-9.0 L EOSINOPHIL % (test code = EO%) 2.6 % 0.3-3.7 N BASOPHIL % (test code = BA%) 0.5 % 0.0-2.0 N NUCLEATED RBC % (test code = 0.0 % 0-0 N NRBC%) NEUTROPHIL # (test code = NT#) 8.90 x10 3/uL 2.0-7.6 H IMMATURE GRANULOCYTE # (test 0.13 x10 3/uL 0.00-0.03 H code = IG#) LYMPHOCYTE # (test code = LY#) 0.98 x10 3/uL 1.0-3.8 L MONOCYTE # (test code = MO#) 0.39 x10 3/uL 0.1-0.8 N EOSINOPHIL # (test code = EO#) 0.28 x10 3/uL 0.0-0.2 H BASOPHIL # (test code = BA#) 0.05 x10 3/uL 0.0-0.2 N NUCLEATED RBC # (test code = 0.00 x10 3/uL 0.0-0.1 N NRBC#) MANUAL DIFF REQUIRED (test NO code = MDIFF) - US ABDOMEN [id number] 16:11:00 Name: MARK SHARMA [facility] : 1950 Age/S: 68 / F [address] [place] [address] Unit #: [id number] Loc: [facility] [id number] Phys: Salvador Richter MD Acct: [id number] Dis Date: Status: ADM IN PHONE #: [phone] Exam Date: 04/22/2019 1500 FAX #: [phone] Reason: ASCITIES EXAMS: CPTCODE: [id number] US ABDOMEN LTD 15366 PROCEDURE: Ultrasound-guided paracentesis. INDICATION: 68-year-old female with large volume ascites COMPARISON: None TECHNIQUE: The technical component of the study was performed by supervised physician assistant to the ceo. The technical report is available in the electronic medical record. Informed consent was obtained prior to the procedure. A totalof 5 L of ceci peritoneal fluid was removed. IMPRESSION: 1. Technically successful ultrasound-guided paracentesis. SL: [id number] at 1611 Reported and signed by: Van Boucher M.D. CC: Salvador Richter MD; Adolfo Snyder Technologist: India Fuentes RDMS (AB) (OB) Trnscb Date/Time: 04/22/2019 (161) [email or web address] Orig Print D/T: S: 04/22/2019 (161) Probe: PAGE 1 Signed Report- US PARACENTESIS W [id number] 16:11:00 Name: MARK SHARMA [facility] : 1950 Age/S: 68 / F [address] [place] [address] Unit #: [id number] Loc: Eugenio [id number] Phys: Saul Fowler MD Acct: [id number] Dis Date: Status: ADM IN PHONE #: [phone] Exam Date: 04/22/2019 1608 FAX #: [phone] Reason: u/s guideD PARACENTHESIS - LARGE VOLUME ASCIIIS EXAMS: CPTCODE: [id number] US PARACENTESIS W IMAGE 00907 PROCEDURE: U ltrasound-guided paracentesis. INDICATION: 68-year-old female with large volume ascites COMPARISON: None TECHNIQUE: The technical component of the study was performed by supervised physician assistant to the ceo. The technical report is available in the electronic medical record. Informed consent was obtained prior to the procedure. A totalof 5 L of ceci peritoneal fluid was removed. IMPRESSION: 1. Technically successful ultrasound-guided paracentesis. SL: [id number] at 1611 Reported and signed by: Van Boucher M.D. CC: Salvador Richter MD; Adolfo Snyder; Saul Serrato MD Technologist: India Fuentes RDMS () (OB) Trnscb Date/Time: 04/22/2019 (161) [email or web address] Orig Print D/T: S: 04/22/2019 (161) Probe: PAGE 1 Signed ReportCOMPREHENSIVE METABOLIC PANEL 2019-04-22 05:38:00 Test Item Value Reference Range Interpretation Comments SODIUM (test code = NA) 141 mEq/L 134-147 N POTASSIUM (test code = 3.0 mEq/L 3.4-5.0 L K) CHLORIDE (test code = 111 mEq/L 100-108 H CL) CARBON DIOXIDE (test 20 mEq/L 21-33 L code = CO2) ANION GAP (test code = 13 0-20 N GAP) GLUCOSE (test code = 105 mg/dL 70-110 N GLU) BLOOD UREA NITROGEN 19 mg/dL 7-18 H (test code = BUN) GLOMERULAR FILTRATION 40.7 80-90 L Units of measure = RATE (test code = GFR) ml/mi n/1.73 m2 CREATININE (test code = 1.3 mg/dL 0.6-1.3 N CREAT) TOTAL PROTEIN (test 5.0 g/dL 6.4-8.2 L code = PROT) ALBUMIN (test code = 1.40 g/dL 3.4-5.0 L ALB) CALCIUM (test code = 7.0 mg/dL 8.0-10.5 L CA) BILIRUBIN TOTAL (test 0.20 mg/dL 0.0-1.0 code = BILT) SGOT/AST (test code = 17 IUnit/L 15-37 N AST) SGPT/ALT (test code = 11 IUnit/L 15-65 L ALT) ALKALINE PHOSPHATASE 190 IUnit/L 20-125 H TOTAL (test code = ALKP) [id number] 05:38:00 Test Item Value Reference Range Interpretation Comments MAGNESIUM (test code = MAG) 1.80 mg/dL 1.8-2.4 N CBC W/AUTO [id number] 05:28:00 Test Item Value Reference Range Interpretation Comments WHITE BLOOD CELL (test code = 10.99 x10 3/uL 4.5-11.0 N WBC) RED BLOOD CELL (test code = 3.38 x10 6/uL 3.54-5.02 L RBC) HEMOGLOBIN (test code = HGB) 10.4 g/dL 11.0-15.0 L HEMATOCRIT (test code = HCT) 31.5 % 33.0-45.0 L MEAN CELL VOLUME (test code = 93.2 fL 81.0-99.0 N MCV) MEAN CELL HGB (test code = 30.8 pg 27.0-33.0 N MCH) MEAN CELL HGB CONCETRATION 33.0 g/dL 33.0-37.0 N (test code = MCHC) RED CELL DISTRIBUTION WIDTH CV 13.2 % 11.5-14.5 N (test code = RDW) RED CELL DISTRIBUTION WIDTH SD 45.5 fL 37.0-54.0 N (test code = RDW-SD) PLATELET COUNT (test code = 336 x10 3/uL 150-400 N PLT) MEAN PLATELET VOLUME (test 9.0 fL 7.0-9.0 N code = MPV) NEUTROPHIL % (test code = NT%) 81.3 % 56.0-77.0 H IMMATURE GRANULOCYTE % (test 2.3 % 0.0-2.0 H code = IG%) LYMPHOCYTE % (test code = LY%) 8.2 % 14.0-32.0 L MONOCYTE % (test code = MO%) 4.7 % 4.8-9.0 L EOSINOPHIL % (test code = EO%) 3.0 % 0.3-3.7 N BASOPHIL % (test code = BA%) 0.5 % 0.0-2.0 N NUCLEATED RBC % (test code = 0.0 % 0-0 N NRBC%) NEUTROPHIL # (test code = NT#) 8.94 x10 3/uL 2.0-7.6 H IMMATURE GRANULOCYTE # (test 0.25 x10 3/uL 0.00-0.03 H code = IG#) LYMPHOCYTE # (test code = LY#) 0.90 x10 3/uL 1.0-3.8 L MONOCYTE # (test code = MO#) 0.52 x10 3/uL 0.1-0.8 N EOSINOPHIL # (test code = EO#) 0.33 x10 3/uL 0.0-0.2 H BASOPHIL # (test code = BA#) 0.05 x10 3/uL 0.0-0.2 N NUCLEATED RBC # (test code = 0.00 x10 3/uL 0.0-0.1 N NRBC#) MANUAL DIFF REQUIRED (test NO code = MDIFF) UR SODIUM [id number] 03:28:00 Test Item Value Reference Range Interpretation Comments UR SODIUM RANDOM 38 MEQ/L The Referen ce Range and (test code = EMIGDIO) Method Per formance specificationsh ave not been established for this fluid. The test result should be correlated into the clinical context forinte rpretation. UR PROTEIN/CREATININE [id number] 03:28:00 Test Item Value Reference Range Interpretation Comments UR PROTEIN RANDOM 110 mg/dL No te: Change in (test code = UNITS of MEASUR EMENT. PROTU) The Refe rence Range and Metho d Performance specificationsh ave not been establishe d for this fluid. The test resultshould be correlated into the clinical contex t forinterpretati on. UR CREATININE 104.0 mg/dL The Reference Range and RANDOM (test code Method Per formance = CREATU) specificationsh ave not been establishe d for this fluid. The test resultshould be correlated into the clinical contex t forinterpretati on. PROTEIN/CREATININ 1.06 E RATIO (test code = P/CRATIO) UR OSMOLALITY [id number] 03:28:00 Test Item Value Reference Range Interpretation Comments UR OSMOLALITY RANDOM (test code = 379 MOS/KG 390-1090 L OSMOU) UR SODIUM [id number] 03:10:00 Test Item Value Reference Range Interpretation Comments UR SODIUM RANDOM (test code = EMIGDIO) MEQ/L UR PROTEIN/CREATININE [id number] 03:10:00 Test Item Value Reference Range Interpretation Comments UR PROTEIN RANDOM (test code = PROTU) mg/dL UR CREATININE RANDOM (test code = mg/dL CREATU) PROTEIN/CREATININE RATIO (test code = P/CRATIO) UR OSMOLALITY [id number] 03:10:00 Test Item Value Reference Range Interpretation Comments UR OSMOLALITY RANDOM (test code = 379 MOS/KG 390-1090 L OSMOU) - CT ABD PELVIS W/O [id number] 00:11:00 Name: MARK SHARMA [facility] : 1950 Age/S: 68 / F [address] [place] [address] Unit #: [id number] Loc: [id number] Phys: Musa Monroe MD Acct: [id number] Dis Date: Status: ADM IN PHONE #: [phone] Exam Date: 04/21/2019 2327 FAX #: [phone] Reason: abdominal distension, AMS EXAMS: CPTCODE: [id number] CT ABD PELVIS W/O CONT 45571 CT abdomen and pelvis without contrast dated 04/21/2019 INDICATION: Abdominal distention status post recent hysterectomy. COMPARISON: None. TECHNIQUE: A CT of the abdomen pelvis was performed using helical images from the thoracic outlet through the pubic symphysis with subsequent sagittal and coronal reconstruction. IV CONTRAST: None. GI CONTRAST: None. CT imaging performed at this location utilizes radiation dose optimization techniques which include one or more of the followin) Automated exposure control; 2) Adjustment of mA and/or kV; 3) Use of iterative reconstructive technique. CT radiation doseDLP (mGy-cm): 694. FINDINGS: SOLID ORGANS: Solid organ assessmentis limited by the absence of intravenous contrast. No acute CT abnormalities of the liver, spleen, pancreas, adrenal glands or kidneys are detected. There is no CT evidence of acuterenal collecting system obstruction or calcified renal collecting system stone. BILIARY: The gallbladder is normally distended. No significant biliary ductal dilatation is identified. BOWEL: Bowel assessment is limited by the absence of bowel contrast. No gross abnormalities of the stomach or duodenum are identified. No small bowel dilatation is present to suggest acute obstruction. By history the patient is status post appendectomy. Increased stool is identified in the ascending and transverse colon. There is no evidence of diverticular disease or inflammatory colonic wall thickening. PERITONEUM: A large volume of free intraperitoneal fluid is identified. Several extraluminal gas bubbles are identified in the right pelvis. RETROPERITONEUM: The abdominal aorta is normal in caliber. There is no evidence of retroperitoneal mass or adenopathy. PAGE 1 Signed Report (CONTINUED) Name: MARK SHARMA [facility] : 1950 Age/S: 68 / F [address] [place] [address] Unit #: [id number] Loc: [place] [address] Phys: Musa Monroe MD Acct: [id number] Dis Date: Status: ADM IN PHONE #: [phone] Exam Date: 04/21/2019 2329 FAX #: [phone] Reason: abdominal distension, AMS EXAMS: CPT CODE: [id number] CT ABD PELVIS W/O CONT 28719 <Continued> PELVIS: The patient is status post hysterectomy. A 4.5 x 3.5 x 1.8 cm gas containing fluid collection is identified along the right pelvic sidewall it appears extraperitoneal in location. A 3.2 x 1.4 x 2.8 cm fluid collection is identified along the left pelvic sidewall that appears extraperitoneal in location. The presence of gas in the bladder lumen is likely related to recent instrumentation. The bladder is otherwise unremarkable. LOWER CHEST: Bilateral pleural effusions are i dentified, left larger than right. Dependent atelectasis is identified in both lower lobes. ADDITIONAL FINDINGS: Postoperative gas is identified in the left anterior abdominal wall. No postoperative abdominal wall fluid collections are identified. IMPR ESSION: 1. Limited noncontrast exam. 2. Large volume of free intraperitoneal fluid, etiology uncertain. 3. Status post hysterectomy with a 4.5 x 3.5 x 1.8 cm extraperitoneal gas containing fluid collection along the right pelvic sidewall and a 3.2 x 1.4 x 2.8cm extraperitoneal fluid collection along the left pelvic sidewall. Several extraluminal gas bubbles are identified in the right pelvis, likely postoperative. The positioning of the gas bubbles would suggest that they are either extraperitoneal or loculated. SL: 131 at 0011 Reported and signed by: Chuy Brar M.D. CC: Adolfo Snyder; Musa Monroe MD Technologist:RT Phi(R) CTDI: DLP: Trnscb Date/Time: 04/22/2019 (001) Jeff Orig Print D/T: S: 04/22/2019 (0014) PAGE 2 Signed ReportTROPONIN-I [id number] 23:22:00 Test Item Value Reference Range Interpretation Comments TROPONIN-I RAPID 0.00 ng/mL 0.00-0.08 N Performed b y certified (test code = gin pole operator at [facility]) [facility] Negative: <= 0.0 8 Positive: >= 0.09An elevated troponin value alone is not sufficient todi agnose a myocardial infa rction. Rather, the pat ient sclinical prese ntation (history, physi jeremias exam) and ECGshould b e used in conjunction wit h troponin in thediagnosti c evaluation of s uspected myocardial infa rction. Aserial samplin g protocol is recommended to facilitate the identification of temporal changes in trop onin levels characteristic of [place]. [id number] 21:43:00 Test Item Value Reference Range Interpretation Comments AMMONIA (test code = AMM) < 10 umol/L 0-35 N COMPREHENSIVE METABOLIC [id number] 21:21:00 Test Item Value Reference Range Interpretation Comments SODIUM (test code = NA) 137 mEq/L 134-147 N POTASSIUM (test code = 3.3 mEq/L 3.4-5.0 L K) CHLORIDE (test code = 104 mEq/L 100-108 N CL) CARBON DIOXIDE (test 24 mEq/L 21-33 N code = CO2) ANION GAP (test code = 12 0-20 N GAP) GLUCOSE (test code = 104 mg/dL 70-110 N GLU) BLOOD UREA NITROGEN 22 mg/dL 7-18 H (test code = BUN) GLOMERULAR FILTRATION 29.9 80-90 L Units of measure = RATE (test code = GFR) ml/mi n/1.73 m2 CREATININE (test code = 1.7 mg/dL 0.6-1.3 H CREAT) TOTAL PROTEIN (test 6.4 g/dL 6.4-8.2 N code = PROT) ALBUMIN (test code = 1.90 g/dL 3.4-5.0 L ALB) CALCIUM (test code = 8.2 mg/dL 8.0-10.5 N CA) BILIRUBIN TOTAL (test 0.30 mg/dL 0.0-1.0 N code = BILT) SGOT/AST (test code = 18 IUnit/L 15-37 N AST) SGPT/ALT (test code = 13 IUnit/L 15-65 L ALT) ALKALINE PHOSPHATASE 229 IUnit/L 20-125 H TOTAL (test code = ALKP) THYROID STIMULATING [id number] 21:21:00 Test Item Value Reference Range Interpretation Comments THYROID STIMULATING 4.04 0.42-5.47 N Results in HORMONE (test code = TSH) mi lli-International Units/mL - XR CHEST 2 [id number] 21:15:00 FAX: Adolfo Nur MD [phone] [place]: St: REG FAX: Musa Monroe MD [phone] Name: MARK SHARMA [facility] Sundar Merino : 1950 Age/S: 68/F [address] [place] [address] Unit #: [id number] Loc: [place] [address] Phys: Musa Monroe MD Acct: [id number] Dis Date: Status: REG ER PHONE #: [phone] Exam Date: 04/21/20192109 FAX #: [phone] Reason: AMS EXAMS: CPT CODE: [id number] XR CHEST 2 V 38430 PROCEDURE: Ch est Radiograph. Clinical Indication: Altered mental status, hallucinations, hysterectomy last week. Comparison: Chest radiograph 04/13/2019. FINDINGS: The chest shows normal lung volumes without interstitial or airspace opacities, pleural effusions or pneumothorax. There is atelectasis at the left lung base The heart size and pulmonary vasculature are normal. The trachea is midline. There are no clinically significant osseous abnormalities noted. Degenerative change involves the thoracic spine. IMPRESSION: 1. Left lower lobe subsegmental atelectasis. SL: K56-H at 2114 Reported and signed by: Ezekiel Martinez M.D. CC: Adolfo Snyder; Musa Monroe MD Technologist: Konstantin Yarbrough RT(R) Trnscrd Date/Time/By: 04/21/2019 (2114) : By: AlphonseTDO Orig Print D/T: S: 04/21/2019 (2117) PAGE 1 Signed ReportURINALYSIS [id number] 21:12:00 Test Item Value Reference Range Interpretation Comments UA COLOR (test code = COLU) YELLOW YEL/STRAW UA APPEARANCE (test code = CLOUDY CLEAR A APPU) UA GLUCOSE DIPSTICK (test code NEGATIVE NEGATIVE = DGLUU) UA BILIRUBIN DIPSTICK (test NEGATIVE NEGATIVE code = BILU) UA KETONE DIPSTICK (test code = NEGATIVE NEGATIVE KETU) UA SPECIFIC GRAVITY (test code 1.012 1.005-1.030 N = SGU) UA BLOOD DIPSTICK (test code = 1+ NEGATIVE A JOANN) UA PH DIPSTICK (test code = 5.0 5.0-7.0 N KVNG) UA PROTEIN DIPSTICK (test code 2+ NEGATIVE A = PROU) UA UROBILINIOGEN DIPSTICK (test 0.2 mg/dL 0.2-1.0 code = URO) UA NITRITE DIPSTICK (test code NEGATIVE NEGATIVE = GORAN) UA LEUKOCYTE ESTERASE DIPSTICK 1+ NEGATIVE A (test code = LEUU) UA WBC (test code = WBCU) 21-50 WBC/HPF 0-3 A UA RBC (test code = RBCU) 0-3 RBC/HPF 0-3 UA BACTERIA (test code = BACU) TRACE /HPF NONE SEEN UA SQUAMOUS CELLS (test code = 0-5 /HPF NONE SEEN SQU) UA HYALINE CAST (test code = 6-10 /LPF NONE SEEN HYALU) UA GRANULAR CAST (test code = 3-5 /LPF NONE GRANU) UA MUCUS (test code = MUCU) TRACE /LPF NONE SEEN UA AMORPHOUS SEDIMENT (test TRACE /HPF NONE code = AMORU) COMMENTS: Clean CatchCOMPREHENSIVE METABOLIC [id number] 21:08:00 Test Item Value Reference Range Interpretation Comments SODIUM (test code = NA) 137 mEq/L 134-147 N POTASSIUM (test code = 3.3 mEq/L 3.4-5.0 L K) CHLORIDE (test code = 104 mEq/L 100-108 N CL) CARBON DIOXIDE (test 24 mEq/L 21-33 N code = CO2) ANION GAP (test code = 12 0-20 N GAP) GLUCOSE (test code = 104 mg/dL 70-110 N GLU) BLOOD UREA NITROGEN 22 mg/dL 7-18 H (test code = BUN) GLOMERULAR FILTRATION 29.9 80-90 L Units of measure = RATE (test code = GFR) ml/mi n/1.73 m2 CREATININE (test code = 1.7 mg/dL 0.6-1.3 H CREAT) TOTAL PROTEIN (test g/dL 6.4-8.2 code = PROT) ALBUMIN (test code = 1.90 g/dL 3.4-5.0 L ALB) CALCIUM (test code = 8.2 mg/dL 8.0-10.5 N CA) BILIRUBIN TOTAL (test mg/dL 0.0-1.0 code = BILT) SGOT/AST (test code = 18 IUnit/L 15-37 N AST) SGPT/ALT (test code = 13 IUnit/L 15-65 L ALT) ALKALINE PHOSPHATASE IUnit/L 20-125 TOTAL (test code = ALKP) THYROID STIMULATING [id number] 21:08:00 Test Item Value Reference Range Interpretation Comments THYROID STIMULATING HORMONE (test code 0.42-5.47 = TSH) CBC W/AUTO [id number] 20:57:00 Test Item Value Reference Range Interpretation Comments WHITE BLOOD CELL (test code = 12.96 x10 3/uL 4.5-11.0 H WBC) RED BLOOD CELL (test code = 3.76 x10 6/uL 3.54-5.02 N RBC) HEMOGLOBIN (test code = HGB) 11.7 g/dL 11.0-15.0 N HEMATOCRIT (test code = HCT) 35.9 % 33.0-45.0 N MEAN CELL VOLUME (test code = 95.5 fL 81.0-99.0 N MCV) MEAN CELL HGB (test code = 31.1 pg 27.0-33.0 N MCH) MEAN CELL HGB CONCETRATION 32.6 g/dL 33.0-37.0 L (test code = MCHC) RED CELL DISTRIBUTION WIDTH CV 13.2 % 11.5-14.5 N (test code = RDW) RED CELL DISTRIBUTION WIDTH SD 46.9 fL 37.0-54.0 N (test code = RDW-SD) PLATELET COUNT (test code = 380 x10 3/uL 150-400 N PLT) MEAN PLATELET VOLUME (test 9.0 fL 7.0-9.0 N code = MPV) NEUTROPHIL % (test code = NT%) 80.0 % 56.0-77.0 H IMMATURE GRANULOCYTE % (test 1.8 % 0.0-2.0 N code = IG%) LYMPHOCYTE % (test code = LY%) 8.6 % 14.0-32.0 L MONOCYTE % (test code = MO%) 6.1 % 4.8-9.0 N EOSINOPHIL % (test code = EO%) 3.2 % 0.3-3.7 N BASOPHIL % (test code = BA%) 0.3 % 0.0-2.0 N NUCLEATED RBC % (test code = 0.2 % 0-0 H NRBC%) NEUTROPHIL # (test code = NT#) 10.36 x10 3/uL 2.0-7.6 H IMMATURE GRANULOCYTE # (test 0.23 x10 3/uL 0.00-0.03 H code = IG#) LYMPHOCYTE # (test code = LY#) 1.12 x10 3/uL 1.0-3.8 N MONOCYTE # (test code = MO#) 0.79 x10 3/uL 0.1-0.8 N EOSINOPHIL # (test code = EO#) 0.42 x10 3/uL 0.0-0.2 H BASOPHIL # (test code = BA#) 0.04 x10 3/uL 0.0-0.2 N NUCLEATED RBC # (test code = 0.02 x10 3/uL 0.0-0.1 N NRBC#) MANUAL DIFF REQUIRED (test NO code = MDIFF) BASIC METABOLIC [id number] 05:18:00 Test Item Value Reference Range Interpretation Comments SODIUM (test code = NA) 139 mEq/L 134-147 N POTASSIUM (test code = 3.9 mEq/L 3.4-5.0 N K) CHLORIDE (test code = 107 mEq/L 100-108 N CL) CARBON DIOXIDE (test 25 mEq/L 21-33 N code = CO2) ANION GAP (test code = 11 0-20 N GAP) GLUCOSE (test code = 134 mg/dL 70-110 H GLU) BLOOD UREA NITROGEN 18 mg/dL 7-18 N (test code = BUN) GLOMERULAR FILTRATION 83.2 80-90 N Units of measure = RATE (test code = GFR) ml/mi n/1.73 m2 CREATININE (test code = 0.7 mg/dL 0.6-1.3 N CREAT) CALCIUM (test code = 7.1 mg/dL 8.0-10.5 L CA) CBC W/AUTO [id number] 05:05:00 Test Item Value Reference Range Interpretation Comments WHITE BLOOD CELL (test code = 9.59 x10 3/uL 4.5-11.0 N WBC) RED BLOOD CELL (test code = 3.75 x10 6/uL 3.54-5.02 N RBC) HEMOGLOBIN (test code = HGB) 11.8 g/dL 11.0-15.0 N HEMATOCRIT (test code = HCT) 35.8 % 33.0-45.0 N MEAN CELL VOLUME (test code = 95.5 fL 81.0-99.0 N MCV) MEAN CELL HGB (test code = MCH) 31.5 pg 27.0-33.0 N MEAN CELL HGB CONCETRATION 33.0 g/dL 33.0-37.0 N (test code = MCHC) RED CELL DISTRIBUTION WIDTH CV 11.8 % 11.5-14.5 N (test code = RDW) RED CELL DISTRIBUTION WIDTH SD 41.2 fL 37.0-54.0 N (test code = RDW-SD) PLATELET COUNT (test code = 189 x10 3/uL 150-400 N PLT) MEAN PLATELET VOLUME (test code 9.8 fL 7.0-9.0 H = MPV) NEUTROPHIL % (test code = NT%) 82.3 % 56.0-77.0 H IMMATURE GRANULOCYTE % (test 0.4 % 0.0-2.0 N code = IG%) LYMPHOCYTE % (test code = LY%) 10.5 % 14.0-32.0 L MONOCYTE % (test code = MO%) 6.6 % 4.8-9.0 N EOSINOPHIL % (test code = EO%) 0.0 % 0.3-3.7 L BASOPHIL % (test code = BA%) 0.2 % 0.0-2.0 N NUCLEATED RBC % (test code = 0.0 % 0-0 N NRBC%) NEUTROPHIL # (test code = NT#) 7.89 x10 3/uL 2.0-7.6 H IMMATURE GRANULOCYTE # (test 0.04 x10 3/uL 0.00-0.03 H code = IG#) LYMPHOCYTE # (test code = LY#) 1.01 x10 3/uL 1.0-3.8 N MONOCYTE # (test code = MO#) 0.63 x10 3/uL 0.1-0.8 N EOSINOPHIL # (test code = EO#) 0.00 x10 3/uL 0.0-0.2 N BASOPHIL # (test code = BA#) 0.02 x10 3/uL 0.0-0.2 N NUCLEATED RBC # (test code = 0.00 x10 3/uL 0.0-0.1 N NRBC#) MANUAL DIFF REQUIRED (test code NO = MDIFF) BASIC METABOLIC [id number] 13:06:00 Test Item Value Reference Range Interpretation Comments SODIUM (test code = NA) 140 mEq/L 134-147 N POTASSIUM (test code = 3.5 mEq/L 3.4-5.0 K) CHLORIDE (test code = 107 mEq/L 100-108 N CL) CARBON DIOXIDE (test 28 mEq/L 21-33 N code = CO2) ANION GAP (test code = 9 0-20 N GAP) GLUCOSE (test code = 80 mg/dL 70-110 N GLU) BLOOD UREA NITROGEN 15 mg/dL 7-18 N (test code = BUN) GLOMERULAR FILTRATION 83.2 80-90 N Units of measure = RATE (test code = GFR) ml/mi n/1.73 m2 CREATININE (test code = 0.7 mg/dL 0.6-1.3 N CREAT) CALCIUM (test code = 8.1 mg/dL 8.0-10.5 N CA) [place] [id number] 08:10:00 Test Item Value Reference Range Interpretation Comments CA 125 (test 304.6 U/mL 0.0-38.1 A [facility] code = Electrochemilum inescence CA125) Immunoassay(ECL IA)Values obtained with d ifferent assay methods or kits cannotbe used interchangeably . Results cannot be inter preted asabsolute evid ence of the presence or abs ence of malignantdiseas e.Performed At: [facility] o[address] [place], [place] [id number] Harrison Dhillon MD Ph:[phone] BASIC METABOLIC [id number] 16:00:00 Test Item Value Reference Range Interpretation Comments SODIUM (test code = NA) 144 mEq/L 134-147 N POTASSIUM (test code = 5.5 mEq/L 3.4-5.0 H K) CHLORIDE (test code = 110 mEq/L 100-108 H CL) CARBON DIOXIDE (test 28 mEq/L 21-33 N code = CO2) ANION GAP (test code = 12 0-20 N GAP) GLUCOSE (test code = 98 mg/dL 70-110 N GLU) BLOOD UREA NITROGEN 14 mg/dL 7-18 N (test code = BUN) GLOMERULAR FILTRATION 62.3 80-90 L Units of measure = RATE (test code = GFR) ml/mi n/1.73 m2 CREATININE (test code = 0.9 mg/dL 0.6-1.3 N CREAT) CALCIUM (test code = 8.8 mg/dL 8.0-10.5 N CA) AG [id number] 16:00:00 Test Item Value Reference Range Interpretation Comments AG CARCINOEMBRYONIC (test code = 12.8 NG/ML 0.0-5.0 H CEA) BASIC METABOLIC [id number] 15:47:00 Test Item Value Reference Range Interpretation Comments SODIUM (test code = NA) mEq/L 134-147 POTASSIUM (test code = K) mEq/L 3.4-5.0 CHLORIDE (test code = CL) mEq/L 100-108 CARBON DIOXIDE (test code = CO2) mEq/L 21-33 ANION GAP (test code = GAP) 0-20 GLUCOSE (test code = GLU) mg/dL 70-110 BLOOD UREA NITROGEN (test code = BUN) mg/dL 7-18 GLOMERULAR FILTRATION RATE (test code 80-90 = GFR) CREATININE (test code = CREAT) mg/dL 0.6-1.3 CALCIUM (test code = CA) mg/dL 8.0-10.5 AG [id number] 15:47:00 Test Item Value Reference Range Interpretation Comments AG CARCINOEMBRYONIC (test code = 12.8 NG/ML 0.0-5.0 H CEA) PROTHROMBIN [id number] 15:24:00 Test Item Value Reference Range Interpretation Comments PROTHROMBIN TIME 10.8 SECONDS 9.3-12.9 N PATIENT (test code = PTP) INTERNATIONAL NORMAL 1.0 0.8-1.2 N TARGET RATIO (test code = INR BY IN DICATION INR) Indication INR1. Prophyl axis of venous thrombos is 2.0 - 3. 0 (orthopedic sathish lidna), Prophylaxis of venous thrombos is (other than hig h-risk surgery), Stacie tment of Deep Vein Thrombosis/Pulm onary Embolism, Preve ntion of systemic emb olism - Tissue heart va lves, Acute Myocardia l Infarction (to prevent systemic embo lism), Valvular heart disease, Atri al Fibrillation, Bileaflet mecha nical valve in aortic position.2. Mec hanical prosthetic valv es (high risk), 2.5 - 3.5 Presence of Lupus Anticoagu lant or Antiphospholi pid Antibodies, Pre vention of systemic e mbolism - Acute Myocard ial Infarction (t o prevent recurre nt infarct). THROMBOPLASTIN TIME [id number] 15:24:00 Test Item Value Reference Range Interpretation Comments THROMBOPLASTIN TIME 29.0 Seconds 25.0-39.5 N Ther apeutic PARTIAL (test code = Range: 50.4 - 88.3 PTT) Seconds Effective 01/13/2019 CBC W/AUTO [id number] 15:03:00 Test Item Value Reference Range Interpretation Comments WHITE BLOOD CELL (test code = 7.70 x10 3/uL 4.5-11.0 N WBC) RED BLOOD CELL (test code = 4.66 x10 6/uL 3.54-5.02 N RBC) HEMOGLOBIN (test code = HGB) 14.6 g/dL 11.0-15.0 N HEMATOCRIT (test code = HCT) 44.6 % 33.0-45.0 N MEAN CELL VOLUME (test code = 95.7 fL 81.0-99.0 N MCV) MEAN CELL HGB (test code = MCH) 31.3 pg 27.0-33.0 N MEAN CELL HGB CONCETRATION 32.7 g/dL 33.0-37.0 L (test code = MCHC) RED CELL DISTRIBUTION WIDTH CV 11.9 % 11.5-14.5 N (test code = RDW) RED CELL DISTRIBUTION WIDTH SD 41.4 fL 37.0-54.0 N (test code = RDW-SD) PLATELET COUNT (test code = 258 x10 3/uL 150-400 N PLT) MEAN PLATELET VOLUME (test code 10.3 fL 7.0-9.0 H = MPV) NEUTROPHIL % (test code = NT%) 61.7 % 56.0-77.0 N IMMATURE GRANULOCYTE % (test 0.3 % 0.0-2.0 N code = IG%) LYMPHOCYTE % (test code = LY%) 27.9 % 14.0-32.0 N MONOCYTE % (test code = MO%) 7.0 % 4.8-9.0 N EOSINOPHIL % (test code = EO%) 2.3 % 0.3-3.7 N BASOPHIL % (test code = BA%) 0.8 % 0.0-2.0 N NUCLEATED RBC % (test code = 0.0 % 0-0 N NRBC%) NEUTROPHIL # (test code = NT#) 4.75 x10 3/uL 2.0-7.6 N IMMATURE GRANULOCYTE # (test 0.02 x10 3/uL 0.00-0.03 N code = IG#) LYMPHOCYTE # (test code = LY#) 2.15 x10 3/uL 1.0-3.8 N MONOCYTE # (test code = MO#) 0.54 x10 3/uL 0.1-0.8 N EOSINOPHIL # (test code = EO#) 0.18 x10 3/uL 0.0-0.2 N BASOPHIL # (test code = BA#) 0.06 x10 3/uL 0.0-0.2 N NUCLEATED RBC # (test code = 0.00 x10 3/uL 0.0-0.1 N NRBC#) MANUAL DIFF REQUIRED (test code NO = MDIFF) BLOOD IN EXTRA BIN; BLOOD IN LABURINALYSIS [id number] 11:52:00 Test Item Value Reference Range Interpretation Comments UA COLOR (test code = COLU) YELLOW YEL/STRAW UA APPEARANCE (test code = CLEAR CLEAR APPU) UA GLUCOSE DIPSTICK (test code NEGATIVE NEGATIVE = DGLUU) UA BILIRUBIN DIPSTICK (test NEGATIVE NEGATIVE code = BILU) UA KETONE DIPSTICK (test code NEGATIVE NEGATIVE = KETU) UA SPECIFIC GRAVITY (test code 1.013 1.005-1.030 N = SGU) UA BLOOD DIPSTICK (test code = NEGATIVE NEGATIVE JOANN) UA PH DIPSTICK (test code = 5.0 5.0-7.0 N KVNG) UA PROTEIN DIPSTICK (test code NEGATIVE NEGATIVE = PROU) UA UROBILINIOGEN DIPSTICK 0.2 mg/dL 0.2-1.0 (test code = URO) UA NITRITE DIPSTICK (test code NEGATIVE NEGATIVE = GORAN) UA LEUKOCYTE ESTERASE DIPSTICK NEGATIVE NEGATIVE (test code = LEUU) UA WBC (test code = WBCU) 0-3 WBC/HPF 0-3 UA RBC (test code = RBCU) 0-3 RBC/HPF 0-3 UA BACTERIA (test code = BACU) NONE SEEN /HPF NONE SEEN UA SQUAMOUS CELLS (test code = 0-5 /HPF NONE SEEN SQU) UA MUCUS (test code = MUCU) TRACE /LPF NONE SEEN - XR CHEST 2 [id number] 10:13:00 FAX: Adolfo Nur MD [phone] [place]: St: PRE FAX: Sharyn Forte [phone] Name: MARK SHARMA [facility] : 1950 Age/S: 68/F [address] [place] [address] Unit #: [id number] Loc: [place] [address] Phys: Sharyn Moncada MD Acct: [id number] Dis Date: Status: PRE IN PHONE #: [phone] Exam Date: 04/13/2019 1010 FAX #: [phone] Reason: HYST EXAMS: CPT CODE: [id number] XR CHEST 2 V 20160 CHEST RADIOGR [facility] - PA AND LATERAL: COMPARISON: September 26, 2018 CLINICAL HISTORY: HYST The cardiopericardial silhouette is within normal limits. Lungs areclear. No vascular congestion or pneumothorax. IMPRESSION: No acute pulmonary abnormality. at 1013 Reported and signed by: Joel Salmeron M.D. CC: Adolfo Snyder; Sharyn Moncada MD Technologist: Allyssa Pratt, RT(R)(M) [facility] Date/Time/By: 04/13/2019 (1013) : By: [email or web address] Orig Print D/T: S: ([id number]) PAGE 1 Signed Report- XR FLUORO FOR SPINE [id number] 07:55:00 Patient Name: MARK SHARMA Unit No: [id number] EXAMS: CPT CODE: [id number] XR FLUORO FOR SPINE INJ [id number] LUMBAR TRANSFORAMINAL INJECTION REFERRING PHYSICIAN: PREOPERATIVE DIAGNOSIS: Degenerative Lumbar Disc Disease. POSTOPERATIVE DIAGNOSIS: Bilateral L4, bilateral L5 radiculopathy PROCEDURES PERFORMED 1. Fluoroscopically guided needle localization of the bilateral L4, bilateral L5 spinal nerve/nerves with transforaminal epidural steroid injection/injections. 2. Transforaminal epidurogram/epidurograms at bilateral L4, bilateral L5. FINDINGS: Poor filling bilateral L4, bilateral L5. Concordant provocation bilateral L5 hips, left L4 back. Pain relief-100%. ANTIBIOTIC: Cefazolin ESTIMATED BLOOD LOSS: Minimal ANESTHESIA: (TIVA )Total intravenous anesthetic (patient intolerant to sedatives and hypnotics) COMPLICATIONS: None DETAILS OF PROCEDURE: After obtaining stable vital signs, informed consent and IV access, with no known contraindications to proceeding, the patient was taken to the fluoroscopy suite and placed in a prone position with all extremities padded and appropriate monitors placed. A sterile prep and drape was performed over the lumbosacral spine. Using fluoroscopic visualization at each level the insertion site was marked for a paravertebral approach to the foramen. Using standard technique, a 25 gauge needle was advanced to the base of the pedicle. In AP view, final positioning was obtained outside the 6 on the clock position on the pedicle. Then, 1 ml of Isovue-300 contrast was injected to produce the epidurograms. No paresthesias were elicited with needle insertion or injection and there were no signs of intravascular or intrathecal uptake. Then, with 1 ml of 4% lidocaine and 10 mgof triamcinolone was injected incrementally with frequent negative aspirations. There were no signs of intravascular or intrathecal uptake. Each subsequent level was done using the same technique and medications. The patient's vital signs remained stable. The patient was taken to the PACU in good condition. [id number] Reported and signed by: Evan Braun M.D. [facility] NAME: MARK SHARMA [address] [facility] PHYS: Evan Martinez MD [place] [id number] : 1950 AGE: 67 SEX: F LOC: [facility] PHONE #: [phone] EXAM DATE: 11/03/2018 STATUS: REG SD FAX #: [phone] RAD #: [id number] D/C DT PAGE 1 Signed Report (CONTINUED) Patient Name: MARK SHARMA Unit No: [id number] EXAMS: CPT CODE: [id number] XR FLUORO FOR SPINE INJ [id number] <Continued> CC: Deborah Emmanuel DO Technologist: Sugar Hunt(R) Transcribed D/ ([id number]) AlphonseUVD [facility] NAME: MARK SHARMA [address] [facility] PHYS: Evan Martinez MD [place] [address] : 1950 AGE: 67 SEX: F LOC: [facility] PHONE #: [phone] EXAM DATE: 11/03/2018 STATUS: REG SD FAX #: [phone] RAD #: [id number] D/CDT PAGE 2 Signed Report Patient Name: MARK SHARMA Unit No: [id number] EXAMS: CPT CODE: [id number] XR FLUORO FOR SPINE INJ [id number] <Continued> Orig Print D/T: S: 11/03/2018 ([id number]) [facility] NAME: MARK SHARMA [address] [facility] PHYS: Evan Martinez MD [place] [address] : 1950 AGE: 67 SEX: F LOC: [facility] PHONE #: [phone] EXAM DATE: 11/03/2018 STATUS: REG [facility] FAX #: [phone] RAD #: [id number] D/C DT PAGE 3 Signed ReportSINUS CULTURE + GRAM [id number] 11:44:00 Test Item Value Reference Range Interpretation Comments CULTURE (BEAKER) (test code = 1095) Amoxicillin + R Clavulanate (test code = 21) Ceftriaxone (test code R = 52) Clindamycin (test code R = 10) Erythromycin (test R code = 4) Levofloxacin (test S code = 22) Penicillin G (test R code = 3) Trimethoprim + R Sulfamethoxazole (test code = 47) Vancomycin (test code S = 13) CULTURE (BEAKER) (test A 3+ St reptococcus code = 1095) pneumoniae GRAM STAIN RESULT 3+ WBCs (BEAKER) (test code = 1123) GRAM STAIN RESULT 2+ gram (BEAKER) (test code = positive cocci [id number]) in pairs GRAM STAIN RESULT 2+ gram (BEAKER) (test code = positive cocci [id number]) in pairs RAD, SINUSES, LESS THAN 3 [id number] 14:53:00Reason for Exam:->chronic sinusitisFINAL REPORT Sinus, two views HISTORY: Chronic sinusitis COMPARISON: Sinus radiographs from 04/29/2017 DISCUSSION: The frontal, ethmoid, and maxillary sinuses are grossly clear. No mucoperiosteal thickening or air-fluid level present. IMPRESSION: Unremarkable two view sinus radiographs. Signed: Jed Salinas Verified Date/Time: 12/09/2017 14:53:57 Reading Location: [address] Radiology Reading Room RAD, CHEST, 2 [id number] 11:21:00Reason for Exam:->[id number] REPORT Chest, 2 views. Clinical History: r05 Comparison Study: 2015 Findings: The cardiac silhouette is unremarkable. Some scarring is seen in the right lung a pex. No other focal pulmonary opacity is seen. The pleural spaces are clear. Degenerative changes are seen. Impression: No active cardiopulmonary disease. Signed: Rusty Cagleeptrudy Verified Date/Time: 12/05/2017 11:21:23 Reading Location: [address] Ortho Consult Reading Room SINUS CULTURE + GRAM STAIN 2017-04-19 12:55:00 Test Item Value Reference Range Interpretation Comments CULTURE (BEAKER) STREPTOCOCCUS A 4+ Strepto coccus (test code = 1095) PNEUMONIAE pneumonia e Amoxicillin + Susceptible 0-2 , R Clavulanate (test Resistant <0 or >2 code = 21) Ceftriaxone (test Susceptible 0-1 , R code = 52) Intermediate <0 or >1 , Resistant >2 Clindamycin (test Susceptible 0-0.25 R code = 10) , Resistant <0 or >.25 Erythromycin (test Susceptible 0-0.25 R code = 4) , Resistant <0 or >.25 Levofloxacin (test Susceptible 0-2 , S code = 22) Resistant <0 or >2 Penicillin G (test Susceptible 0-0.06 R code = 3) , Intermediate <0 or >.06 , Resistant >1 Trimethoprim + Susceptible 0-0.5 R Sulfamethoxazole , Resistant <0 or (test code = 47) >.5 Vancomycin (test Susceptible 0-1 , S code = 13) No Interpretations Established <0 or >1 GRAM STAIN RESULT 3+ WBCs (BEAKER) (test code = 1123) GRAM STAIN RESULT 2+ gram positive (BEAKER) (test code cocci in chains = [id number]) and pairs 1+ Normal respiratory semaj present
--- NOTE | 2021-01-13 12:17 | RAD REPORT ---
EXAM DESCRIPTION: CT - CTHCSPWOC - 01/13/2021 11:50 am CLINICAL HISTORY: Trauma, head and neck injury. fall COMPARISON: No comparisons TECHNIQUE: Axial 5 mm thick images of the head were obtained. Axial 2 mm thick images of the cervical spine were obtained with sagittal and coronal reconstruction images generated and reviewed. All CT scans are performed using dose optimization technique as appropriate and may include automated exposure control or mA/KV adjustment according to patient size. FINDINGS: CT HEAD WITHOUT CONTRAST: No acute hemorrhage, hydrocephalus or extra-axial collection is identified.No areas of brain edema or midline shift. The paranasal sinuses and mastoids are clear.The calvarium is intact. CT CERVICAL SPINE WITHOUT CONTRAST: No fracture or subluxation.Mild cervical degenerative changes are present.No prevertebral soft tissue s swelling is identified. IMPRESSION: No acute intracranial or cervical spine findings.
--- NOTE | 2021-01-13 12:21 | RAD REPORT ---
EXAM DESCRIPTION: CT - CTFB CLINICAL HISTORY: fall Fall, trauma, facial pain and swelling. COMPARISON: No comparisons TECHNIQUE: Axial 2 mm thick images of the face were obtained with sagittal and coronal reconstructio n images. All CT scans are performed using dose optimization technique as appropriate and may include automated exposure control or mA/KV adjustment according to patient size. FINDINGS: No acute facial bone fracture is seen.The mandible is intact. The globes and orbital contents are grossly unremarkable.The paranasal sinuses and mastoids are clear . IMPRESSION: Negative for facial bone fracture.
--- NOTE | 2021-01-13 12:30 | EDPHYS ---
Physician Documentation [facility] Name: Cesilia Narvaez Age: 70 yrs Sex: Female : 1950 Arrival Date: 01/13/2021 Time: 10:11 Bed 15 Private MD: ED Physician Manjinder Dill HPI: 01/13 11:00 This 70 yrs old Female presents to ER via Ambulatory with complaints of cp Headache, Numbness. 11:00 The patient or guardian reports injury, pain. The complaints affect the infraorbital cp bilaterally. Context of injury: resulted from a fall, while running, while playing kickball. Onset: The symptoms/episode began/occurred 1-2 weeks ago. 11:00 Associated signs and symptoms: Pertinent positives: headache, dizziness, Pertinent cp negatives: nausea, neck pain, seizure, vomiting. 11:00 Patient reports near syncopal episode today. cp Historical: - Allergies: 11:07 No Known Allergies; bw - PMHx: 11:07 ovarian cancer; neuralgia; bw - Immunization history:: Adult Immunizations up to date. - Social history:: Smoking status: Patient denies any tobacco usage or history of. ROS: 11:10 Neuro: Positive for dizziness, Negative for altered mental status, syncope, weakness. cp 11:10 Eyes: Negative for injury, pain, redness, and discharge. cp 11:10 Constitutional: Negative for chills, fever. 11:10 Neck: Negative for pain with movement, pain at rest, stiffness. 11:10 Cardiovascular: Negative for chest pain. 11:10 Abdomen/GI: Negative for abdominal pain, nausea, vomiting, and diarrhea. 11:10 All other systems are negative. Exam: 11:15 Constitutional: The patient appears in no acute distress, alert, awake, cp non-diaphoretic, non-toxic, well developed, well nourished. 11:15 Head/face: Noted is ecchymosis, that is mild, of the infraorbital bilaterally, cp swelling, that is mild, of the infraorbital bilaterally. 11:15 Eyes: Pupils: equal, round, and reactive to light and accomodation, Extraocular movements: intact throughout, Conjunctiva: normal, no exudate, no injection, Sclera: no appreciated abnormality, Lids and lashes: appear normal, bilaterally. 11:15 ENT: External ear(s): are unremarkable, Ear canal(s): are normal, clear, TM's: dullness, bilaterally. 11:15 Neck: C-spine: vertebral tenderness, is not appreciated, crepitus, is not appreciated, ROM/movement: is normal, is supple, without pain, no range of motions limitations. 11:15 Chest/axilla: Inspection: normal, Palpation: is normal, no crepitus, no tenderness. 11:15 Cardiovascular: Rate: normal, Rhythm: regular. 11:15 Respiratory: the patient does not display signs of respiratory distress, Respirations: normal, no use of accessory muscles, no retractions. 11:15 Abdomen/GI: Exam negative for discomfort, distension, guarding, Inspection: abdomen appears normal. 11:15 Back: pain, is absent, ROM is normal. 11:15 Neuro: Orientation: to person, place \T\ time. Mentation: is normal, Cerebellar function: is grossly normal, Motor: moves all fours, strength is normal, Sensation: is normal. Vital Signs: 10:32 Pulse 69; Resp 18; Temp 98.7(O); Pulse Ox 99% on R/A; Weight 63.96 kg (R); Height 5 ft. bw 3 in. (160.02 cm); Pain 0/10; 10:32 BP 101 / 75; bw 12:36 BP 104 / 81; Pulse 68; Resp 18; Pulse Ox 99% on R/A; bw 10:32 Body Mass Index 24.98 (63.96 kg, 160.02 cm) bw Aarti Coma Score: 12:25 Eye Response: spontaneous(4). Verbal Response: oriented(5). Motor Response: obeys cp commands(6). Total: 15. MDM: 10:47 Patient medically screened. cp 11:30 Differential diagnosis: Intracranial bleed- Concussion cerebral contusion, facial bone cp fracture, cervical spine fracture. 12:29 Data reviewed: vital signs, nurses notes, radiologic studies, CT scan, and as a result, cp I will discharge patient. 12:29 Counseling: I had a detailed discussion with the patient and/or guardian regarding: the cp historical points, exam findings, and any diagnostic results supporting the discharge/admit diagnosis, radiology results, the need for outpatient follow up, a neurologist, to return to the emergency department if symptoms worsen or persist or if there are any questions or concerns that arise at home. 01/13 10:55 Order name: CT Head C Spine; Complete Time: 12:24 cp 01/13 12:25 Interpretation: Reviewed report. cp 01/13 10:55 Order name: CT Facial Bones W/O Con; Complete Time: 12:24 cp 01/13 12:25 Interpretation: Report reviewed. cp Administered Medications: No medications were administered Disposition: 12:45 Chart complete. cp Disposition: 01/13/21 12:29 Discharged to Home. Impression: Concussion. - Condition is Stable. - Discharge Instructions: Concussion, Adult, Head Injury, Adult. - Medication Reconciliation Form, Thank You Letter, Antibiotic Education, Prescription Opioid Use form. - Follow up: Alex Broussard MD; When: 2 - 3 days; Reason: Recheck today's complaints. - Problem is new. - Symptoms have improved. Addendum: 01/18/2021 10:02 Co-signature as Attending Physician, Manjinder Dill MD I agree with the assessment and t w4 plan of care. Signatures: Dispatcher [employer] EDMS Rodrigo Tinoco PA PA cp Manjinder Dill MD MD tw4 Kari Sharma RN RN Corrections: (The following items were deleted from the chart) 01/13 12:37 12:29 01/13/2021 12:29 Discharged to Home. Impression: Concussion. Condition is Stable. bw Forms are Medication Reconciliation Form, Thank You Letter, Antibiotic Education, Prescription Opioid Use. Follow up: Alex Broussard; When: 2 - 3 days; Reason: Recheck today's complaints. Problem is new. Symptoms have improved. cp 01/14 05:13 01/13 11:00 Onset: The symptoms/episode began/occurred 1 week(s) ago, cp cp
--- NOTE | 2021-01-13 12:30 | ER ---
Nurse's Notes [facility] Name: Cesilia Narvaez Age: 70 yrs Sex: Female : 1950 Arrival Date: 01/13/2021 Time: 10:11 Bed 15 Private MD: Diagnosis: Concussion Presentation: 01/13 10:32 Chief complaint: Patient states: Pt c/o almost passing out at home this am. PT fell bw playing kick ball on saturday and fell on her face. Bruising noted in triage around eyes. Signs of healing noted. Also states ongoing headache for the last week. Coronavirus screen: At this time, unable to obtain information related to travel outside the [place] At this time, the client does not indicate any symptoms associated with coronavirus-19. Ebola Screen: No symptoms or risks identified at this time. Initial Sepsis Screen: Does the patient meet any 2 criteria? No. Patient's initial sepsis screen is negative. Does the patient have a suspected source of infection? No. Patient's initial sepsis screen is negative. Risk Assessment: Do you want to hurt yourself or someone else? Patient reports no desire to harm self or others. 10:32 Method Of Arrival: Ambulatory 10:32 Acuity: VIBHA 3 bw 11:05 Onset of symptoms was January 01, 2021. Triage Assessment: 11:07 Headache History: Denies prior headaches. General: Appears in no apparent distress. bw Behavior is calm, cooperative, appropriate for age. Pain: Denies pain. Pain currently is 0 out of 10 on a pain scale. Pain began since January 01, 2021 Also complains of near syncope. Neuro: No deficits noted. Reports headache. Cardiovascular: No deficits noted. Respiratory: No deficits noted. GI: No deficits noted. : No deficits noted. Derm: No deficits noted. Musculoskeletal: No deficits noted. Historical: - Allergies: 11:07 No Known Allergies; bw - PMHx: 11:07 ovarian cancer; neuralgia; bw - Immunization history:: Adult Immunizations up to date. - Social history:: Smoking status: Patient denies any tobacco usage or history of. Screenin:09 Abuse screen: Denies threats or abuse. Nutritional screening: No deficits noted. bw Tuberculosis screening: No symptoms or risk factors identified. Fall Risk None identified. Assessment: 11:09 Reassessment: see triage assessment. Pain: Denies pain. bw 12:36 Reassessment: Patient appears in no apparent distress at this time. Patient and/or bw family updated on plan of care and expected duration. Pain level reassessed. Patient is alert, oriented x 3, equal unlabored respirations, skin warm/dry/pink. Vital Signs: 10:32 Pulse 69; Resp 18; Temp 98.7(O); Pulse Ox 99% on R/A; Weight 63.96 kg (R); Height 5 ft. bw 3 in. (160.02 cm); Pain 0/10; 10:32 BP 101 / 75; bw 12:36 BP 104 / 81; Pulse 68; Resp 18; Pulse Ox 99% on R/A; bw 10:32 Body Mass Index 24.98 (63.96 kg, 160.02 cm) bw Aarti Coma Score: 12:25 Eye Response: spontaneous(4). Verbal Response: oriented(5). Motor Response: obeys cp commands(6). Total: 15. ED Course: 10:11 Patient arrived in ED. am2 10:37 Triage completed. bw 10:40 Kari Sharma RN is Primary Nurse. bw 10:42 Rodrigo Tinoco PA is PHCP. cp 10:42 Manjinder Dill MD is Attending Physician. cp 11:07 Arm band placed on right wrist. bw 11:09 Patient has correct armband on for positive identification. Bed in low position. Call bw light in reach. Side rails up X 1. 11:09 Pulse ox on. NIBP on. Warm blanket given. bw 11:09 No provider procedures requiring assistance completed. Patient did not have IV access bw during this emergency room visit. 11:50 CT Facial Bones W/O Con In Process Unspecified. EDMS 11:50 CT Head C Spine In Process Unspecified. EDMS 12:29 Alex Broussard MD is Referral Physician. cp Administered Medications: No medications were administered Outcome: 12:29 Discharge ordered by . cp 12:36 Discharged to home ambulatory. bw 12:36 Condition: good 12:36 Discharge instructions given to patient, family. 12:37 Patient left the ED. bw Signatures: Dispatcher [employer] EDAZ Rodrigo Tinoco PA PA cp Desirae Rodriguez am2 Sharma, Kari, RN RN bw
[2021-01-13 12:42] VITALS: TEMP 98.7; O2SAT 99
[2021-01-13 12:43] VITALS: BP 104/81
== END 2021-01-13 12:37 | disposition home or self-care (01) ==
LOC: ER 10:07
DX: S06.0X0A Concussion without loss of consciousness, initial encounter (principal); W18.30XA Fall on same level, unspecified, initial encounter; Y93.02 Activity, running; Y92.89 Other specified places as the place of occurrence of the external cause; Z85.43 Personal history of malignant neoplasm of ovary
CPT/HCPCS: 70450; 70486; 72125; 76377; 99283

== ENCOUNTER 2021-03-03 06:32 | Emergency (ER) | payer OTHER ==
--- OUTSIDE RECORDS SUMMARY | 2021-03-03 06:36 | XMS REPORT | Continuity of Care Document ---
:1950 Author Organization [facility] t Address [address] [place] [address] Care Team Providers Name Role Phone Asked, Pcp Primary Care Physician Unavailable Claudio MORRISON, Beau Attending Clinician Lisy MORRISON, P. Attending Clinician Erin Escudero MD Attending Clinician Dolores EMMANUEL Attending Clinician Unavailable Payers Payer Name Policy Type Policy Effective Date Expiration Date Sour ce Number [facility] [id number] 2020 KIMBERLEE Chen - - MEDICARE MGD 00:00:00 Medical Ce nter CAREUNITED MEDICARE [id number] 021-Present UHC MEDICAREUHC [id number] 2020 [place] TRS/HEALTHSELECT 00:00:00 Methodis t [id number] 2020-Present Problems Condition Condition Condition Status Onset Resolution Last Treating Co mments Source Name Details Category Date Date Treatment Clinician Date Lumbar Lumbar Disease Active Overview: KIMBERLEE Hand radiculopa radiculopa 1-28 Periodic [facility] - thy thy 00:00: injection Medical s [facility] orthopedi cs. Multiple, helpful, ongoing pain. Discussed the lack of physical therapy. She has a little back book from that doctor. Pelvic Pelvic Disease Active Overview: [facility] pain pain -28 Since [facility] - 00:00: early Medical August. Center Constant discomfor t. Worse with BM, urination , gas. Feels Has appt Saturday with urogyneco lgist. "Dr. Nelson" Woman's No inconveni ence or bowel issues. , not vaginal .Hysterec chuck. OVARIES removed tue Anxiety Anxiety Disease Active Overview: [facility] St 03-04 Related [facility] - 00:00: to Medical cancer, Center sleep. Prozac and HS Xanax. Disorder Disorder Disease Active [facility] S t of of 03-04 [facility] - initiating initiating 00:00: Or dical and and Center maintainin maintainin g sleep g sleep Malignant Malignant Disease Active Overview: [facility] neoplasm neoplasm 04-07 Removed [facility] - of right of right 00:00: March Medica l ovary ovary Center netic study pending. By oncologyC A 125 followed. COMPLETE HYST, no hormones. BMI BMI Disease Active [facility] St 25.0-25.9, 25.0-25.9, 1-19 [place] kes - adult adult 00:00: Medical 00 [place] Benign Benign Disease Active Overview: [facility] essential essential 04-25 No HTN Luke s - tremor tremor 00:00: Long Medical standing, Center prev Neuro eval. Kaleigh Johnson [facility] NuroPropr anolol. Daily, controls, mild sx. Now on primidone and gabapenti n. Hyperlipid Hyperlipid Disease Active Overview : [facility] emia, emia, 6- On [facility] - mixed mixed 00:00: Pravachol [facility] , Mother Center with high cholester ol to age 89 (dementia since age 84) Primary Primary Disease Active Overview: [facility] insomnia insomnia 6- Sees [facility] - 00:00: psych [facility] [place] for insomnia. Sleep problems her entire life. Hates Ambien, one Xanax at bedtime. Atypical Atypical Problem Active Cente r facial facial for ENT pain pain [...] DA Active U 2020-0 [facility]16 [place] [facility] 00:[facility]: [place] 00 [facility] No Known DA Active U 2020-0 [facility] 8[facility]18 [facility] 00:[facility]: Hospita 00 l [facility] No Known DA Active U [...] DA Active U 2018- [facility] 2-28 [place] [facility] 00:00: [place] 00 [facility] No Known DA Active U 2014- [facility] 0-10 [place] s 00:00: Orthope 00 dic Hospita l Social History Social Habit Start Date Stop Date Quantity Comments Source Alcohol Comment pt has two Xinguodu - drinks 7 days a Medical C enter week Sex Assigned At [facility] Exposure to Not sure [facility] - SARS-CoV-2 (event) Medica l Center Alcohol intake 2021-02-16 2021-02-16 [facility] of alcohol Medical Center (finding) Tobacco use and 2021-02-16 2021-02-[address] [facility] [facility] kes - exposure 00:00:00 00:00:00 Medical Center History [facility] 2020-06-02 2020-06-02 4 [place] Meth odist Alcohol Frequency 00:00:00 00:00:00 History [facility] 2020-06-02 2020-06-02 1 [place] [facility] Alcohol Std Drinks 00:00:00 00:00:00 History SDMA 2020-06-02 2020-06-02 1 [place] [facility] Alcohol Binge 00:00:00 00:00:00 Smoking Status Start Date Stop Date Source Never sm[facility] Medications Ordered Filled Start Stop Current Ordering Indication Dosage Frequency Signature Comments Components Source Medication Medication Date Date Medication? Clinician (SIG) Name Name meloxicam 2020- Yes 15mg Take 1 [facility] (MOBIC) 15 5-26 08-24 tablet (15 Daphney kes - MG tablet 00:00: 23:59 mg total) Me dical 00 :00 by mouth Center as needed for up to 90 days. fLUoxetine 2020- No 10mg QD Take [address] (PROZAC) 10 5-20 05-20 by mouth Sherry es - MG capsule 13:49: 00:00 daily . Med ical 30 :00 Center cetirizine Yes 10mg QD Take [address] (ZYRTEC) 10 5-20 by mouth Luke s - MG tablet 13:48: daily. Medica l 19 Center fluticasone Yes 1{spray QD [address] (FLONASE) 5-20 } Nasal [facility] - 50 13:48: route Medical mcg/actuati 19 daily. Center on nasal spray ALPRAZolam Yes .5mg Take 0.[address] (XANAX) 0.5 5-20 mg by [facility] - MG tablet 13:48: mouth Medical 19 every Center night as needed for Anxiety. azelastine Yes 2{spray QD [address] (ASTELIN) 5-20 } by Nasal [facility] - 137 mcg 13:48: route Medical (0.1 %) 19 daily Use Center nasal spray in each nostril as directed . folic acid Yes 1mg Take [address] (FOLVITE) 1 5-20 by mouth. Sherry es - MG tablet 13:48: Medical 19 Center gabapentin 2021- Yes 300mg Q.5D Take [address] [facility] (Neurontin) 3-23 03-23 capsule Meth german 300 mg 00:00: 23:59 ([address] capsule 00 :00 total) by mouth 2 (two) times a day. FLUoxetine Yes [facility] (PROzac) 20 3-22 [facility] - MG tablet 00:00: Medical 00 Center famotidine 2021- Yes 40mg QD Take [address] (PEPCID) 40 3-10 03-10 tablet (40 L ukes - MG tablet 00:00: 23:59 mg total) Me dical 00 :00 by mouth Center every evening. rosuvastati 2021- No 20mg QD Take [address] n (CRESTOR) 2-08 02-08 tablet (20 L ukes - 20 MG 00:00: 23:59 mg total) Medica l tablet 00 :00 by mouth Center nightly. primidone 2021- No 150mg Q.5D Take 3 [place] (MYSOLINE) 1-28 10- tablets Metho di 50 MG 00:00: 23:59 ([address] tablet 00 :00 total) by mouth 2 (two) times a day. propranoloL 2021- No 80mg QD Take [address] (INDERAL 10-27- capsule [facility] - [place]) 80 MG 00:00: 23:59 (80 mg Medic al 24 hr 00 :00 total) by Center capsule mouth daily. meloxicam 2019-09- No 15mg Take [address] (MOBIC) 15 - by mouth Luke s - MG tablet 00:00: 00:00 as needed. M edical 00 :00 Center primidone 2019-09 Yes 150mg Q.5D Take [...] 150mg Q.5D Take 3 [place] (MYSOLINE) 2- 01-29 tablets Metho di 50 MG 00:00: 00:00 [...] times a day for 30 days. primidone 2019-09- No 250mg QD Take 1 [place] (MYSOLINE) 0-13 10-27 tablet Method i 250 MG 00:00: 00:00 ([address] tablet 00 :00 total) by mouth nightly for 90 days. primidone 2019- No 125mg QD Take 0.5 [place] (MYSOLINE) 9-28 10-13 tablets Metho di 250 MG 00:00: 00:00 ([address] tablet 00 :00 total) by mouth nightly for 90 days. primidone 2019- 2020- No 75mg QD Take 1.5 [facility] (MYSOLINE) 06-02- tablets Metho di 50 MG 00:00: 00:00 ([address] tablet 00 :00 total) by mouth nightly for 62 days. propranolol 2020- No 80mg QD Take 1 [place] (INDERAL 05-11 08-12 capsule Meth german [place]) 80 MG 00:00: 23:59 ([address] 24 hr 00 :00 total) by capsule mouth daily. primidone 2019- No 50mg QD Take 1 [place] (MYSOLINE) 05-11 tablet (50 Me thodi 50 MG 00:00: 00:00 mg total) st tablet 00 :00 by mouth nightly for 62 days. biotin 2019- 2020- No QD Take by [facility] 5,000 mcg 6-05 06-05 mouth [facility] - TbDL 10:34: 00:00 daily. Medical 52 :00 Center FOLIC ACID 2019-0 2020- No QD Take by [facility] ORAL 6-05 06-05 mouth [facility] - 10:34: 00:00 daily. Medical 21 :00 Center gabapentin 2019- 2020- No 400mg Q.5D Take [address] (NEURONTIN) 6-05 06-05 mg by [facility] - 400 MG 10:34: 00:00 mouth 2 Medical capsule 15 :00 (two) Center times daily . propranoloL 2019-2020- No 120mg QD Take [address] (INDERAL 03-04 capsule [facility] - [place]) 120 MG 00:00: 00:00 (120 mg Med ical 24 hr 00 :00 total) by Center capsule mouth daily. propranolol 2019-0 2019- No 120mg Take 120 [place] (INDERAL 6-05 08-12 mg by Method i [place]) 120 MG 00:00: 00:[address] 24 hr 00 :00 capsule rosuvastati 2019-2020- No 10mg QD Take [address] [facility] (CRESTOR) 5 02-08 tablet (10 L ukes - 10 MG 00:00: 00:00 mg total) Medica l tablet 00 :00 by mouth Center nightly. propranolol 2019-0 2020- No 80mg QD Take [address] (INDERAL 1- 06-05 capsule [facility] - [place]) 80 MG 00:00: 00:00 (80 mg Medic al 24 hr 00 :00 total) by Center capsule mouth daily. omeprazole 2019- No 40mg QD Take [address] (PRILOSEC) 05-21 06-05 capsule [facility] - 40 MG 00:00: 00:00 (40 mg Medical capsule 00 :00 total) by Center mouth daily. ranitidine No 150mg QD Take [address] (ZANTAC) 10-23 06-05 tablet [facility] - 150 MG 00:00: [...] capsule before dinner [facility]olam [facility] 0.5 7-11 0.5 mg Method i MG tablet 00:00: tablet st 00 propranolol 2019- No propranolo [place] (INDERAL 6 08-12 l ER 80 mg M ethodi [place]) 80 MG 00:00: 00:00 capsule,24 s t 24 hr 00 :00 hr,extende capsule d release meloxicam Yes [place] (MOBIC) 15 6-15 Methodi mg tablet 00:00: st 00 rosuvastati Yes rosuvastat [place] n (CRESTOR) 4-24 in 10 mg Meth german 10 mg 00:00: tablet st tablet 00 Flonase Flonase Yes [place] not [place] Emmanuel defined for ENT Propranolol Propranolol Yes [place] not [place] HCl HCl Emmanuel defined for ENT Zoloft Zoloft Yes [facility] not [facility] defined for ENT Rosuvastati Rosuvastati Yes [place] n Calcium n Calcium [place] defined f or ENT Estrace Estrace Yes [facility] defined for ENT Zertec Zertec Yes [facility] not [facility] defined for ENT Ambien Ambien Yes [facility] [place] defined for ENT Immunizations Ordered Immunization Filled Immunization Date Status Commen ts Source Name Name PFIZER COVID-19 MRNA 2021-01-24 Completed [place] VACC[facility]ATION 00:00:00 [facility] Covid-19 Vaccine Mrna 2021-01-[address] [facility] - (Pf) 00:00:00 [facility] (Pfizer/biontech) PFIZER COVID-19 MRNA 2021-01-03 Completed [place] VACCINATION 00:00:00 [facility] Covid-19 Vaccine Mrna 2021-01-[address] [facility] - (Pf) 00:00:00 [facility] (Pfizer/biontech) INFLUENZA QIV 2020-09-[address] [facility] - ADJUVANTED PF IM 00:00:00 [facility] Center Pneumococcal 2020-03-[address] [facility] - Polysaccharide 00:00:00 Medical Ce nter (Pneumovax) SHINGLES VARICELLA 2016-10-[address] [facility] - (ZOSTAVAX) ZOSTER 00:00:00 [facility] Influenza Three-TIV 2016-10-18 [facility] - Non-PF 4+YRS IM 00:00:00 Medical C enter Vital Signs Vital Name Observation Time Observation Value Comments Source Systolic blood 2021-02-16 13:51:00 115 mm[Hg] [facility] pressure [facility] Diastolic blood 2021-02-16 13:51:00 75 mm[Hg] [facility] pressure [facility] Heart rate 2021-02-16 13:51:00 69 /min [facility] Body temperature 2021-02-16 13:51:00 36.67 Brenda [facility] Body height 2021-02-16 13:51:00 162.6 cm [facility] Body weight 2021-02-16 13:51:00 64.864 kg [facility] BMI 2021-02-16 13:51:00 24.55 kg/m2 [facility] Oxygen saturation in 2021-02-16 13:51:00 99 /min [facility] Arterial blood by Medical Ce nter Pulse oximetry Respiratory rate 2020-10-27 10:15:00 16 /min [facility] Systolic blood 2020-08-09 13:01:00 119 mm[Hg] [facility] [facility] pressure Diastolic blood 2020-08-09 13:01:00 74 mm[Hg] [place] on [facility] pressure Heart rate 2020-08-09 13:01:00 66 /min Chucho Gottlieb Body height 2020-08-09 13:01:00 160 cm Chucho Gottlieb Body weight 2020-08-09 13:01:00 68.04 kg Chucho Gottlieb BMI 2020-08-09 13:01:00 26.57 kg/m2 [place] Procedures Procedure Date / Time Performing Clinician Source Performed T4, FREE 2020-10-27 11:21:00 Adolfo Snyder [facility] TSH 2020-10-27 11:21:00 Adolfo Snyder Beau [facility] VITAMIN D, 25-HYDROXY 2020-10-27 11:21:[address] [facility] UA/M W/RFLX CULTURE, 2020-10-27 11:21:00 Adolfo Snyder [facility] MICROSCOPIC EXAMINATION 2020-10-27 11:21:00 Adolfo Snyder [facility] CBC W/PLT COUNT & AUTO 2020-10-27 11:21:00 Adolfo Snyder [facility] COMPREHENSIVE METABOLIC 2020-10-27 11:21:00 Adolfo Snyder [facility] HEMOGLOBIN A1C 2020-10-27 11:21:00 Adolfo Snyder [facility] LIPID PANEL 2020-10-27 11:21:00 Adolfo Snyder [facility] ECG 12-LEAD 2020-10-27 00:00:00 Adolfo Snyder Beau [facility] MRI BRAIN W WO CONTRAST 2020-06-10 14:31:14 Rodolfo Escudero BASIC METABOLIC PANEL 2020-06-02 13:29:00 Rodolfo Escudero on [facility] Plan of Care Planned Activity Planned Date Details Comments Source Future Scheduled 2021-10-[address] [facility] - Test 00:00:00 WELLNESS (YEAR 3 +) Medical Center [code = MEDICARE SUBSEQUENT WELLNESS (YEAR 3 +)] Future Scheduled 2021-09-[address] [facility] - Test 00:00:00 [facility] breast (procedure) [code = 058328409] Future Scheduled 2021-04-30 INFLUENZA VACCINE [place] [facility] Test 00:00:00 [code = INFLUENZA VACCINE] Future Scheduled 2020-02-[address] [facility] - Test 00:00:00 [facility] colon (procedure) [code = 406372725] Future Scheduled 2016-12-16 SHINGLES VACCINES [place] [facility] Test 00:00:00 (#2) [code = SHINGLES VACCINES (#2)] Future Scheduled 2016-12-13 SHINGLES VACCINES ([address] [facility] - Test 00:00:00 of 3) [code = Medical Center SHINGLES VACCINES (2 of 3)] Future Scheduled 2000 BRE[facility] CANCER [facility] Test 00:00:00 SCREENING [code = BREAST CANCER SCREENING] Future Scheduled 2000 COLONOSCOPY SCREENING [place] [facility] Test 00:00:00 [code = COLONOSCOPY SCREENING] Future Scheduled 1969 DTAP/TDAP/TD VACCINES [facility] - Test 00:00:00 (1 - Tdap) [code = Medical C enter DTAP/TDAP/TD VACCINES (1 - Tdap)] Future Scheduled 1968 Hepatitis C screening [place] [facility] Test 00:00:00 (procedure) [code = 255952832] Future Scheduled 1968 HEPATITIS C SCREENING [facility] - Test 00:00:00 [code = HEPATITIS C Medical Center SCREENING] Encounters Start End Encounter Admission Attending Care Care Encounter Source Date/Time Date/Time Type Type Clinicians Facility Department ID 2021-01-24 2021-01-24 Outpatient LISY [facility] [id number] [address] [place] [address] 00:00:00 00:00:00 GRACE Sandoval [facility] 2021-01-18 2021-01-18 Outpatient [facility] FB [id number] FB 12:09:00 12:09:00 2021-01-03 2021-01-03 Outpatient [facility] [id number] [place] 00:00:00 00:00:[address] 2020-08-09 2020-08-09 Outpatient JOAQUINA, [facility] [id number] [place] 00:00:00 00:00:00 RODOLFO [address] 2020-06-10 2020-06-10 Outpatient JOAQUINA, [facility] [id number] [place] 00:00:00 00:00:00 RODOLFO [address] 2020-06-02 2020-06-02 Outpatient JOAQUINA, [facility] [id number] [place] 00:00:00 00:00:00 RODOLFO [address] 2020-06-02 2020-06-02 Outpatient JOAQUINA, [facility] [id number] [place] 00:00:00 00:00:00 RODOLFO [address] 2020-05-11 2020-05-11 Outpatient JOAQUINA, [facility] [id number] [place] 00:00:00 00:00:00 RODOLFO [address] [...] [facility] 2017-11-26 2017-11-26 Outpatient [facility] [id number] Center 16:26:00 16:26:00 [facility] 2017-11-26 2017-11-26 Outpatient [facility] [id number] [place] 11:15:00 11:15:00 [facility] 2017-11-26 2017-11-26 Outpatient [facility] [id number] Center 08:30:00 08:30:00 [facility] 2017-11-11 2017-11-11 Outpatient [facility] [id number] [place] 13:00:00 13:00:00 [facility] Results Test Description Test Time Test Comments Results Result Comments Source Novel Coronavirus 2018 Inhouse 2021-03-01 02:13:00 Test Item Value Reference Range Interpretation Comme nts Novel Coronavirus 2018 Negative Negative Posit igor results are indicative of the Inhouse (test code = presenc e pdIBLO-QoQ-1 RNA, clinical COVNONPUI) correlation wit h patient historyand other diagnosti c information is necessary to de terminepatient infection status. Positiv e results do not rule outbacterial in fection or co-infection with other viru ses. Negative results do not preclude SA RS-CoV-2 infection andshould not b e used as the sole basis for patient man agementdecisions. Negative result s must be combined with otherclinical o bservations, patient history, and ep idemiologicalinformation. Detection of SA RS-CoV-2 RNA may be affected bysamp le collection methods, storage conditi ons, and/or stageof infection. Toña l RNA mutations, vaccinations, a ntiviraltherapeutics, antibiotics, ch emotherapeutic orimmunosuppres shreya drugs have not been evaluated for e ffectson detection. Results are for the identification of SARS-CoV-2 RNA usingthe [employer] System under th e FDA Emergency UseAuthorizatio n. The testing is performed by marco rsonneltrained in the procedures for the [employer] moleculardiagno stic SARS-CoV-2 assay in vitro. BASIC METABOLIC [id number] 16:00:00 Test Item Value Reference Range Interpretation Comments SODIUM (test code = NA) 139 mEq/L 134-147 N POTASSIUM (test code = 4.0 mEq/L 3.4-5.0 N K) CHLORIDE (test code = 102 mEq/L 100-108 N CL) CARBON DIOXIDE (test 28 mEq/l 21-33 N code = CO2) ANION GAP (test code = 13 0-20 N GAP) GLUCOSE (test code = 102 mg/dL 70-110 N GLU) BLOOD UREA NITROGEN 12 mg/dL 7-18 N (test code = BUN) GLOMERULAR FILTRATION 70.9 70-80 N Units of measure = RATE (test code = GFR) ml/mi n/1.73 m2 CREATININE (test code = 0.8 mg/dL 0.6-1.3 N CREAT) CALCIUM (test code = 9.0 mg/dL 8.0-10.5 N CA) - XR CHEST 2 [id number] 15:59:00 [facility] 1950 Sex: F FAX: Sharyn Forte [phone] [place]: St: PRE FAX: Aguilar Pepe MD [phone] Name: MARK SHARMA [facility] : 1950 Age/S: 70/F [address] [place] [address] Blvd Unit #: [id number] Loc: DORIS Artis [address] Phys: Sharyn Moncada MD Acct: [id number] Dis Date: Status: PRE SDC PHONE #: [phone] Exam Date: 02/28/2021 1546 FAX #: [phone] Reason: PREOP- EXAMS: CPT CODE: [id number] XR CHEST 2 V [id number] Chest, 2 views dated 02/28/2021. HISTORY: Ovarian cancer. Comparison is made to a prior study dated 04/15/2020. The heart is normal in size. The cardiomediastinal shadow is stable. Atherosclerotic calcification is noted in the aortic arch. The lungs appear clear. The pulmonary vasculature is normal in caliber. No acute pleural space abnormalities are detected. IMPRESSION: 1. No radiographic evidence of acute cardi opulmonary disease. SL: 131 at 1559 Reported and signed by: Chuy Brar M.D. CC: Sharyn Moncada MD; Aguilar Tong MD Technologist: RT Amarilys(Mayi) Trnscrd Date/Time/By: 02/28/2021 (5605) : By: Jeff Orig Print D/T: S: 02/28/2021 (1633) PAGE 1 Signed ReportPROTHROMBIN [id number] 15:57:00 Test Item Value Reference Range Interpretation Comments PROTHROMBIN TIME 11.9 SECONDS 9.3-12.9 N PATIENT (test code = PTP) INTERNATIONAL NORMAL 1.1 0.8-1.2 N TARGET RATIO (test code = INR BY IN DICATION INR) Indication INR1. Prophyl axis of venous thrombos is 2.0 - 3. 0 (orthopedic sathish linda), Prophylaxis of venous thrombos is (other than [...] o prevent recurre nt infarct). THROMBOPLASTIN TIME [id number] 15:57:00 Test Item Value Reference Range Interpretation Comments THROMBOPLASTIN TIME 30.6 Seconds 25.0-39.5 N Ther apeutic PARTIAL (test code = Range: 50.4 - 88.3 PTT) Seconds Effective 01/13/2019 CBC W/AUTO [id number] 15:50:00 Test Item Value Reference Range Interpretation Comments WHITE BLOOD CELL (test code = 6.1 x10 3/uL 4.5-11.0 WBC) RED BLOOD CELL (test code = 4.22 x10 6/uL 3.54-5.02 N RBC) HEMOGLOBIN (test code = HGB) 13.0 g/dL 11.0-15.0 N HEMATOCRIT (test code = HCT) 40.0 % 33.0-45.0 N MEAN CELL VOLUME (test code = 94.8 fL 81.0-99.0 N MCV) MEAN CELL HGB (test code = MCH) 30.8 pg 27.0-33.0 N MEAN CELL HGB CONCETRATION 32.5 g/dL 33.0-37.0 L (test code = MCHC) RED CELL DISTRIBUTION WIDTH CV 12.1 % 11.5-14.5 N (test code = RDW) RED CELL DISTRIBUTION WIDTH SD 42.3 fL 37.0-54.0 N (test code = RDW-SD) PLATELET COUNT (test code = 239 x10 3/uL 150-400 N PLT) MEAN PLATELET VOLUME (test code 9.6 fL 7.0-9.0 H = MPV) NEUTROPHIL % (test code = NT%) 65.4 % 56.0-77.0 N IMMATURE GRANULOCYTE % (test 0.2 % 0.0-2.0 N code = IG%) LYMPHOCYTE % (test code = LY%) 23.7 % 14.0-32.0 N MONOCYTE % (test code = MO%) 8.7 % 4.8-9.0 N EOSINOPHIL % (test code = EO%) 1.3 % 0.3-3.7 N BASOPHIL % (test code = BA%) 0.7 % 0.0-2.0 N NUCLEATED RBC % (test code = 0.0 % 0-0 N NRBC%) NEUTROPHIL # (test code = NT#) 4.01 x10 3/uL 2.0-7.6 N IMMATURE GRANULOCYTE # (test 0.01 x10 3/uL 0.00-0.03 N code = IG#) LYMPHOCYTE # (test code = LY#) 1.45 x10 3/uL 1.0-3.8 N MONOCYTE # (test code = MO#) 0.53 x10 3/uL 0.1-0.8 N EOSINOPHIL # (test code = EO#) 0.08 x10 3/uL 0.0-0.2 N BASOPHIL # (test code = BA#) 0.04 x10 3/uL 0.0-0.2 N NUCLEATED RBC # (test code = 0.00 x10 3/uL 0.0-0.1 N NRBC#) MANUAL DIFF REQUIRED (test code NO = MDIFF) - XR FLUORO FOR SPINE [id number] 20:02:[address] : 1950 Sex: F Patient Name: MARK SHARMA Unit No: [id number] EXAMS: CPT CODE: [id number] XR FLUORO FOR SPINE INJ 72610 THORACIC EPIRADICULAR INJECTION REFERRAL PHYSICIAN: None PREOPERATIVE [...] annular degeneration was seen at each level. P rovocation with injection was negative. Anesthetic response was [...] placed in a prone position with all extremitiespadded and appropriate monitors placed. The patient was [...] in good condition. Image: Image 1 Image: Image2 Image: Image 3 at 2002 Reported and signed by: Dao Sanabria M.D. [facility] NAME: ZACHARYMARK MOY [address] [facility] PHYS: Dao Coyne MD [place], [place] [address] : 1950 AGE: 70 SEX: F LOC: KarissaPITA PHONE #: [phone] EXAM DATE: 12/13/2020 STATUS: REG [facility] FAX #: [phone] RAD #: [id number] D/C DT PAGE 1 Signed Report (CONTINUED) Patient Name: MARK SHARMA Unit No: [id number] EXAMS: CPT CODE: [id number] XR FLUORO FOR SPINE INJ 78927 <Continued> CC: Technologist: Sugar Hunt() [facility] [place] NAME: MARK SHARMA [address] [facility] PHYS: Dao Coyne MD [place] [address] : 1950 AGE: 70 SEX: F LOC: CARISSA PHONE #: [phone] EXAM DATE: 12/13/2020 STATUS: REG [facility] FAX #: [phone] RAD #: [id number] D/C DT PAGE 2 Signed Report Patient Name: MARK SHARMA Unit No: [id number] EXAMS: CPT CODE: [id number] XR FLUORO FOR SPINE INJ 98710 <Continued> Transcribed D/ (2001) [facility] [place] NAME: MARK SHARMA [address] [facility] PHYS: Dao Coyne MD [place] [address] : 1950 AGE: 70 SEX: F LOC: CARISSA PHONE #: [phone] EXAM DATE: 12/13/2020 STATUS: REG [facility] FAX #: [phone] RAD #: [id number] D/C DT PAGE 3 Signed Report- XR FLUORO FOR SPINE [id number] 18:57:[address] SHARMA : 1950 Sex: F Patient Name: MARK SHARMA Unit No: [id number] EXAMS: CPT CODE: [id number] XR FLUORO FOR SPINE INJ 43077 LUMBAR FACET INJECTION DIAGNOSTIC REFERRAL PHYSICIAN: None PREOPERATIVE DIAGNOSIS: Lumbar spondylosis without myelopathy or radiculopathy POSTOPERATIVE DIAGNOSIS: Lumbar spondylosis without myelopathy or radiculopathy PROCEDURE PERFORMED: Fluoroscopically guided needle localization of the left L3-4, b ilateral L4-5 and left L5-S1 facets with arthrograms [...] good condition. Image: Image 1 Image: Image 2Image: Image 3 [facility] NAME: MARK SHARMA[address] [facility] PHYS: Dao Coyne MD [place], [place] [address] : 1950 AGE: 69 SEX: F LOC: CARISSA PHONE #: [phone] EXAM DATE: 11/29/2020 STATUS: REG [facility] FAX #: [phone] RAD #: [id number] D/C DT PAGE 1 Signed Report (CONTINUED) Patient Name: MARK SHARMA Unit No: [id number] EXAMS: CPT CODE: [id number] XR FLUORO FOR SPINE INJ 56387 <Continued> at 1857 Reported and signed by: Dao Sanabria M.D. CC: Technologist: Sugar Hunt(R) Transcribed D/ (1856) [facility] NAME: MARK SHARMA [address] [facility] PHYS: Dao Coyne MD [place], [place] [address] : 1950 AGE: 69 SEX: F LOC: CARISSA PHONE #: [phone] EXAM DATE: 11/29/2020 STATUS: REG [facility] FAX #: [phone] RAD #: [id number] D/C DT PAGE 2 Signed Report Patient Name: MARK SHARMA Unit No: [id number] EXAMS: CPT CODE: [id number] XR FLUORO FOR SPINE INJ 34045 <Continued> Orig Print D/T: S: 11/29/2020 (1900) [facility] NAME: MARK SHARMA [address] [facility] PHYS: Dao Coyne MD [place], [place] [address] : 1950 AGE: 69 SEX: F LOC: CARISSA PHONE #: [phone] EXAM DATE: 11/29/2020 STATUS: REG [facility] FAX #: [phone] RAD #: [id number] D/C DT PAGE 3 Signed ReportComprehensive metabolic [id number] 16:10:00 Test Item Value Reference Range Interpretation Comments Glucose, Serum (test 103 mg/dL 65-99 H code = 20110130) BUN (test code = 15 mg/dL 8-27 20110131) Creatinine, Serum 0.78 mg/dL 0.57-1 (test code = 20110223) eGFR If NonAfricn Am 78 mL/min/1.73 >59 (test code = ) eGFR If Africn Am 90 mL/min/1.73 >59 (test code = ) BUN/Creatinine Ratio 19 12-28 (test code = ) Sodium, Serum (test 141 mmol/L 134-144 code = 20110216) Potassium, Serum 4.6 mmol/L 3.5-5.2 (test code = 20110215) Chloride, Serum (test 101 mmol/L 96-106 code = 20110217) Carbon Dioxide, Total 26 mmol/L 20-29 (test code = ) Calcium, Serum (test 9.5 mg/dL 8.7-10.3 code = 20110128) Protein, Total, Serum 7.3 g/dL 6-8.5 (test code = 20110204) Albumin, Serum (test 4.9 g/dL 3.8-4.8 H code = 20110205) Globulin, Total (test 2.4 g/dL 1.5-4.5 code = ) A/G Ratio (test code 2.0 1.2-2.2 = ) Bilirubin, Total 0.4 mg/dL 0-1.2 (test code = 20110206) Alkaline Phosphatase, 56 See_Comment [Auto mated S (test code = message] The 6768-6) system which generated this result transmitted reference range : 39 - 117 IU/L. The reference range was not used to interpr et this result as normal/abnormal . AST (SGOT) (test code 16 See_Comment [Auto mated = 20110210) message] The system which generated this result transmitted reference range : 0 - 40 IU/L. Th e reference range was not used to interpret this result as normal/abnormal . ALT (SGPT) (test code 13 See_Comment [Auto mated = ) message] The system which generated this result transmitted reference range : 0 - 32 IU/L. Th e reference range was not used to interpret this result as normal/abnormal . ELAN (test code = ELAN) Performed at: [address] [place] [address] [id number] Director: [place] Lassiter MD, Phone: [phone] Lab Interpretation Abnormal (test code = 18300-8) [facility] [id number] 16:10:00 Test Item Value Reference Range Interpretation Comments Cholesterol, Total 249 mg/dL 100-199 H (test code = 2093-3) Triglycerides (test 113 mg/dL 0-149 code = 2571-8) HDL Cholesterol (test 105 mg/dL >39 code = 2085-9) VLDL Cholesterol Jeremias 19 mg/dL 5-40 (test code = 46393-9) LDL Calculated (test 125 mg/dL 0-99 H code = 38660-5) LDl/HDL Ratio (test 1.2 See_Comment code = 69573-3) LDL/HDL Ratio Men Women 1/2 Avg.Risk 1.0 1.5 Avg.Risk 3.6 3.2 2X Avg.Risk 6. 2 5.0 3X Avg.Risk 8. 0 6.1 [Automat ed message] The system which generated this result transmitted reference range : 0.0 - 3.2 ratio . The reference range was not used to interpr et this result as normal/abnormal . ELAN (test code = ELAN) Performed at: [address] [place] [address] [id number] Director: [place] Lassiter MD, Phone: [phone] Lab Interpretation Abnormal (test code = 58770-0) [facility] CenterHemoglobin [id number] 16:10:00 Test Item Value Reference Range Interpretation Comments Hemoglobin A1c (test 5.7 % 4.8-5.6 H code = 4548-4) Prediabetes: 5.7 - 6.4 Diabetes: >6.4 Glycemic control for adults with diabetes: <7.0 ELAN (test code = ELAN) Performed at: [address] [place] [address] [id number] Director: [place] Lassiter MD, Phone: [phone] Lab Interpretation Abnormal (test code = 42953-0) [facility] CenterT4, [id number] 16:10:00 Test Item Value Reference Range Interpretation Comments T4,Free(Direct) (test 1.15 ng/dL 0.82-1.77 code = 20120505) Thyroxine (T4) (test 6.4 ug/dL 4.5-12 code = 7749237) ELAN (test code = ELAN) Performed at: - [facility] [address] [id number] Director: [place] Lassiter MD, Phone: [phone] [facility] [id number] 16:10:00 Test Item Value Reference Range Interpretation Comments TSH (test code 1.930 See_Comment [Automated m essage] = ) The system whic h generated this result transmit ander reference range : 0.450 - 4.50 uI U/mL. The reference r elvi was not used to interpret this result as normal/abnormal . ELAN (test code Performed at: - = ELAN) [facility] [address] [id number] Director: [place] Lassiter MD, Phone: [phone] [facility] CenterCBC with platelet count + automated [id number] 16:10:00 Test Item Value Reference Range Interpretation Comments WBC (test code = 6.5 See_Comment [Automated ) message] The system which generated this result transmit ander reference range : 3.4 - 10.8 x10E3/uL. The reference range was not used to interpret this result as normal/abnormal . RBC (test code = 4.30 See_Comment [Automated 776-8) message] The system which generated this result [...] code = Performed at: ELAN) - [facility] [address] [id number] Director: [place] Lassiter MD, Phone: [phone] [facility] CenterVitamin D, 41-[id number] 16:10:00 Test Item Value Reference Range Interpretation Comments Vitamin D, 20.8 ng/mL 30-100 L Vitamin D 25-Hydroxy (test deficiency has been code = 1944224) defined by [facility] Republic ofMedicine and an Endocrine Socie ty practice guidel ine as alevel of se rum 25-OH vitamin D less than 20 ng /mL (1,2).The Endoc rine Society went on to further define vitamin Dinsufficiency as a level between 2 1 and 29 ng/mL (2 ).1. IOM ([place] of [employer]). 2010 . Dietary referen ce intakes for jeremias cium and D. [place]: The [employer] .2. George MF, Kristy falherty [place], Moe ORNELAS, et al. Evaluation, treatment, and prevention of vitamin D deficiency: an Endocrine Socie ty clinical practi ce guideline. JCEM . 2010; 96(7):1911-30. ELAN (test code = Performed at: ELAN) - [facility] [address] [id number] Director: [place] Lassiter MD, Phone: [phone] Lab Interpretation Abnormal (test code = 75465-5) [facility] CenterUA/M W/RFLX CULTURE, [id number] 16:10:00 Test Item Value Reference Range Interpretation Comments Specific [place], 1.008 1.005-1.03 UA (test code = 2965-2) pH, UA (test code = 6.5 5.0-7.5 5803-2) Color, UA (test Yellow Yellow code = 9796-4) Appearance (test Clear Clear code = 4674531) WBC Esterase (test Negative Negative code = 9854410) Protein, UA (test Negative Negative/T code = 35415-6) Glucose, Urine Negative Negative (test code = 14618-1) Ketones, UA (test Negative Negative code = 2514-8) Blood, UA (test Negative Negative code = 61583-4) Bilirubin, UA (test Negative Negative code = 5770-3) Urobilinogen,Semi-Q 0.2 mg/dL 0.2-1 n (test code = 3910495) Nitrite, UA (test Negative Negative code = 36743-6) Microscopic Comment Microscopic Examination (test follows if code = 2711154) indicated. Microscopic See below: Microscopic was Examination (test indicated and was code = 9593513) performed. Urinalysis Reflex Comment This speci men will (test code = not reflex to a ) Urine Culture. ELAN (test code = Performed at: ELAN) - [facility] [id number] Director: [place] Lassiter MD, Phone: [phone] [facility] CenterMICROSCOPIC [id number] 16:10:00 Test Item Value Reference Range Interpretation [...] renal) (test message] T he code = 5358895) system which generated this result transmit ander reference range : 0 - 10 /hpf. The reference range was not used to interpret this result as normal/abnormal . Bacteria (test Few None seen/ code = 3540711) ELAN (test code = Performed at: ELAN) - [facility] [address] [id number] Director: [place] Lassiter MD, Phone: [phone] [facility]- MRI L-SPINE W/O [id number] 07:43:00 [facility] : 1950 Sex: F Patient Name: MARK SHARMA Unit No: [id number] EXAMS: CPT CODE: [id number] MRI L-SPINE W/O CONT 93729 TECHNIQUE: Multiplanar, multisequence MRI examination performed of [...] stenosis. No significant foraminal stenosis. LUMBAR SPINE: [facility] NAME: MARK SHARMA [address] [facility] PHYS: Dao Coyne MD : 1950 AGE: 69 SEX: F [place], [place] [address] LOC: Y.MRI PHONE #: [phone] EXAM DATE: 09/28/2020 STATUS: DEP CLI FAX #: [phone] RAD #: [id number] D/C DT PAGE 1 Signed Report (CONTINUED) Patient Name: MARK SHARMA Unit No: [id number] EXAMS: CPT CODE: [id number] MRI L-SPINE W/O CONT 12843 <Continued> Alignment: Grade 1 degenerative spondylolisthesis. Bone [...] hnologist: Avani Gilmore, RT(R) Transcribed D/ (0743) DarrellJ [facility] NAME: MARK SHARMA [address] [facility] PHYS: Dao Coyne MD : 1950 AGE: 69 SEX: F [place] [address] LOC: Y.MRI PHONE #: [phone] EXAM DATE: 09/28/2020 STATUS: [facility] FAX #: [phone] RAD #: [id number] D/C DT PAGE 2 Signed Report Patient Name: MARK SHARMA Unit No: [id number] EXAMS: CPT CODE: [id number] MRI L-SPINE W/O CONT 56852 <Continued> OrigPrint D/T: S: 09/29/2020 (0746) [facility] NAME: MARK SHARMA [address] [facility] PHYS: Dao Coyne MD : 1950 AGE: 69 SEX: F [place] [address] LOC: Y.MRIPHONE #: [phone] EXAM DATE: 09/28/2020 STATUS: [facility] FAX #: [phone] RAD #: [id number] D/C DT PAGE 3 Signed Report- MRI T-SPINE W/O [id number] 07:43:[facility] : 1950 Sex: F Patient Name: MARK SHARMA Unit No: [id number] EXAMS: CPT CODE: [id number] MRI T-SPINE W/O CONT 28039 TECHNIQUE: Multiplanar, multisequence MRI examination performed of [...] stenosis. No significant foraminal stenosis. LUMBAR SPINE: [facility] NAME: MARK SHARMA [address] [facility] PHYS: Dao Coyne MD : 1950 AGE: 69 SEX: F [place], [place] [address] LOC: Y.MRI PHONE #: [phone] EXAM DATE: 09/28/2020 STATUS: [facility] FAX #: [phone] RAD #: [id number] D/C DT PAGE 1 Signed Report (CONTINUED) Patient Name: MARK SHARMA Unit No: [id number] EXAMS: CPT CODE: [id number] MRI T-SPINE W/O CONT 78937 <Continued> Alignment: Grade 1 degenerative spondylolisthesis. Bone [...] Jed Hoyos M.D. CC: Dao Sanabria MD [facility] hnologist: Avani Gilmore RT(R) Transcribed D/ (0743) AlphonseVicente [facility] NAME: MARK SHARMA [address] [facility] PHYS: Dao Coyne MD : 1950 AGE: 69 SEX: F [place], [place] [address] LOC: Y.MRI PHONE #: [phone] EXAM DATE: 09/28/2020 STATUS: DEP CL FAX #: [phone] RAD #: [id number] D/C DT PAGE 2 Signed Report Patient Name: MARK SHARMA Unit No: [id number] EXAMS: CPT CODE: [id number] MRI T-SPINE W/O CONT 87360 <Continued> OrigPrint D/T: S: 09/29/2020 (0746) [facility] NAME: MARK SHARMA [address] [facility] PHYS: Dao Coyne MD : 1950 AGE: 69 SEX: F [place], [place] [address] LOC: Y.MRIPHONE #: [phone] EXAM DATE: 09/28/2020 STATUS: [facility]P [facility] FAX #: [phone] RAD #: [id number] D/C DT PAGE 3 Signed ReportBasic metabolic [id number] 06:11:00 Test Item Value Reference Interpretation Comments Range Glucose (test code 105 mg/dL 65-99 H Fasting = 2345-7) reference inter kathie For someone wit hout known diabetes, a glucose valuebe tween 100 and 125 mg/ dL is consistent withprediabetes and should be confi rmed with afollow-up test. BUN (test code = 23 mg/dL 04-23 3094-0) Creatinine (test 0.85 mg/dL 0.50-0.99 For patient s >49 code = 2160-0) years of age, the reference limit for Creatinine is approximately 1 3% higher for peopleidentifie d as -Dulce n. EGFR Non-Afr. 70 See_Comment [Automated me ssage] Mongolian (test code The syst em which = 8995) generated this result transmit ander reference range : > OR = 60 mL/min/1.73m2. The reference range was not used to interpret this result as normal/abnormal . EGFR 81 See_Comment [Automated mes shireen] Mongolian (test code The syst em which = 51304-9) generated this result transmit ander reference range [...] . Sodium (test code = 142 mmol/L 247-465 4335-2) Potassium (test 4.6 mmol/L 3.5-5.3 code = 2823-3) Chloride (test code 105 mmol/L 98-110 = 2075-0) CO2 (test code = 31 mmol/L 20-32 2028-05) Calcium (test code 9.5 mg/dL 8.6-10.4 = 29617-0) RAC (test code = Performing RAC) Organization Information: Site ID: [id number] Name: [facility] Address: [address] [place] [id number] Director: Alonso Oconnell Lab Interpretation Abnormal (test code = 72566-0) [facility]- XR FLUORO FOR SPINE [id number] 09:12:00 Patient Name: MARK SHARMA Unit No: [id number] EXAMS: CPT CODE: [id number] XR FLUORO FOR SPINE INJ 12558 THORACIC TRANSFORAMINAL INJECTION REFERRING PHYSICIAN: PREOPERATIVE DIAGNOSIS: [...] and signed by: Evan Braun M.D. [facility] NAME: MARK SHARMA CHINMAY [address] [facility] PHYS: Evan Martinez MD [place], [place] [address]LPA: 1950 AGE: 69 SEX: F LOC:CARISSA PHONE #: [phone] EXAM DATE: 05/17/2020 STATUS: REG [facility] FAX #: [phone] RAD #: [id number] D/C DT PAGE 1 Signed Report (CONTINUED) Patient Name: MARK SHARMALEY Unit No: [id number] EXAMS: CPT CODE: [id number] XR FLUORO FOR SPINE INJ 07509 <Continued> CC: Technologist: Sugar Hunt(R) Transcribed D/ (0912) tFABIANOR.UVD [facility] NAME: MARK SHARMA [address] [facility] PHYS: Evan Martinez MD [place], [place] [address] : 1950 AGE: 69 SEX: F LOC: CARISSA PHONE #: [phone] EXAM DATE: 05/17/2020 STATUS: [facility] FAX #: [phone] RAD #: [id number] D/C DT PAGE 2 Signed Report Patient Name: MARK SHARMA Unit No: [id number] EXAMS: CPT CODE: [id number] XR FLUORO FOR SPINE INJ 73628 <Continued> Orig Print D/T: S: 05/17/2020 (0915) [facility] NAME: MARK SHARMA [address] [facility] PHYS: MITCH - DoctorEvan MD [place], [place] [address] : 1950 AGE: 69 SEX: F LOC: CARISSA PHONE #: [phone] DATE: 05/17/2020 STATUS: REG SDC FAX #: [phone] RAD #: [id number] D/C DT PAGE 3 Signed Report- XR FLUORO FOR SPINE [id number] 11:46:00 Patient Name: MARK SHARMA Unit No: [id number] EXAMS: CPT CODE: [id number] XR FLUORO FOR SPINE INJ 97239 THORACIC TRANSFORAMINAL INJECTION REFERRING PHYSICIAN: PREOPERATIVE DIAGNOSIS: [...] and signed by: Evan Braun M.D. [facility] NAME: MARK SHARMA [address] [facility] PHYS: Evan Martinez MD [place] [address] : 1950 AGE: 69 SEX: F LOC: CARISSA PHONE #: [phone] EXAM DATE: 04/15/2020 STATUS: [facility] FAX #: [phone] RAD #: [id number] D/C DT PAGE 1 Signed Report (CONTINUED) Patient Name: MARK SHARMA Unit No: [id number] EXAMS: CPT CODE: [id number] XR FLUORO FOR SPINE INJ 32236 <Continued> CC: Technologist: Sugar Hunt(R) Transcribed D/ (1146) tFABIANORAMBIKAD [facility] NAME: ZACHARYMARK CHINMAY [address] [facility] PHYS: vEan Martinez MD [place] [address] : 1950 AGE: 69 SEX: F LOC: CARISSA PHONE #: [phone] EXAM DATE: 04/15/2020 STATUS: [facility] FAX #: [phone] RAD #: [id number] D/C DT PAGE 2 Signed Report Patient Name: MARK SHARMA Unit No: [id number] EXAMS: CPT CODE: [id number] XR FLUORO FOR SPINE INJ 48463 <Continued> Orig Print D/T: S: 04/15/2020 (1150) [facility] NAME: MARK SHARMA [address] [facility] PHYS: Evan Martinez MD [place] [address] : 1950 AGE: 69 SEX: F LOC: CARISSA PHONE #: [phone] EXAM DATE: 04/15/2020 STATUS: [facility] FAX #: [phone] RAD #: [id number] D/C DT PAGE 3 Signed Report- XR CHEST 1 [id number] 09:08:00 Patient Name: MARK SHARMA Unit No: [id number] EXAMS: CPT CODE: [id number] XR CHEST 1 V 43323 PORTABLE CHEST April 15, 2020 8:47 AM COMMENT: COMPARISON: November 19, 2019 There is no evidence for pneumothorax or active disease. at 0908 Reported and signed by: Cain Akers MD CC: Evan Braun MD Technologist: CARLOS PACHECO (RT.R) Transcribed D/ (0908) AlphonseJCL [facility] NAME: MARK SHARMA [address] [facility] PHYS: Evan Martinez MD : 1950 AGE: 69 SEX: F [place] [address] LOC: CARISSA PHONE #: [phone] EXAM DATE: 04/15/2020 STATUS: [facility] FAX #: [phone] RAD #: [id number] D/C DT PAGE 1 SignedReport Patient Name: MARK SHARMA Unit No: [id number] EXAMS: CPT CODE: [id number] XR CHEST 1 V 52192 <Continued> Orig Print D/T: S: 04/15/2020(0911) [facility] NAME: MARK SHARMA [address] [facility] PHYS: Evan Luis MD : 1950 AGE: 69 SEX: [place] [address] LOC: CARISSA PHONE #: [phone] EXAM DATE: 04/15/2020 STATUS: [facility] FAX #: [phone] RAD #: [id number] D/C DT PAGE 2 Signed Report- XR FLUORO FOR SPINE [id number] 12:12:00 Patient Name: MARK SHARMA Unit No: [id number] Report Has Been Amended EXAMS: CPT CODE: [id number] XR FLUORO FOR SPINE INJ 15017 Addendum -01/26/2020 SIGNED 01/26/2020 ADDENDUM: [id number] RAD/FLLOCSPI Left KNEE INJECTION REFERRING PHYSICIAN: PREOPERATIVE [...] THORACIC TRANSFORAMINAL INJECTION [facility] NAME: MARK SHARMA [address] [facility] PHYS: DOCUD - Evan Braun MD [place], [place] [address] : 1950 AGE: 68 SEX: F LOC: KarissaPITA PHONE #: [phone] EXAM DATE: 11/19/2019 STATUS: [facility] FAX #: [phone] RAD #: [id number] D/C DT PAGE 1 Signed Report (CONTINUED) Patient Name: MARK SHARMA Unit No: [id number] Report Has Been Amended EXAMS: CPT CODE: [id number] XR FLUORO FOR SPINE INJ 79198 <Continued> REFERRING PHYSICIAN: PREOPERATIVE DIAGNOSIS: Degenerative thoracic [...] taken to the PACU in good condition. [facility] NAME: MARK SHARMA [address] [facility] PHYS: Evan Martinez MD [place] [address] : 1950 AGE: 68 SEX: F LOC: CARISSA PHONE #: [phone] EXAM DATE: 11/19/2019 STATUS: [facility] FAX #: [phone] RAD #: [id number] D/C DT PAGE 2 Signed Report(CONTINUED) Patient Name: MARK SHARMA Unit No: [id number] Report Has Been Amended EXAMS: CPT CODE: [id number] XR FLUORO FOR SPINE INJ 05689 <Continued> at 1117 Reported and signed by: Evan Braun M.D. CC: Evan Crow MD Technologist: JACKSON FRAIAS RT(R) Transcribed D/ (1117) Natasha [facility] [place] NAME: CLAUDE SHARMAELA CHINMAY [address] [facility] PHYS: Evan Martinez MD [place] [address] : 1950 AGE: 68 SEX: F LOC: CARISSA PHONE #: [phone] DATE: 11/19/2019 STATUS: [facility] FAX #: [phone] RAD #: [id number] D/C DT PAGE 3 Signed Report Patient Name: MARK SHARMA Unit No: [id number] Report Has Been Amended EXAMS: CPT CODE: [id number] XR FLUORO FOR SPINE INJ 42524 <Continued> Orig Print D/T: S: (1120) [facility] NAME: MARK SHARMA [address] [facility] PHYS:Evan Martinez MD [place] [address] : 1950 AGE: 68 SEX: F LOC: CARISSA PHONE #: [phone] EXAM DATE: 11/19/2019 STATUS: [facility] FAX #: [phone] RAD #: [id number] D/C DT PAGE 4 Signed Report- XR CHEST 1 [id number] 07:19:00 Patient Name: MARK SHARMA Unit No: [id number] EXAMS: CPT CODE: [id number] XR CHEST 1 V 83251 PORTABLE CHEST November 19, 2019 8:11 AM COMMENT: COMPARISON: October 06, 2019 There is no evidence for pneumothorax or active disease. at 0719 Reported and signed by: Cain Akers MD CC: Evan Braun MD Technologist: CARLOS PACHECO (RT.R) Transcribed D/ (07) AlphonseJCL [facility] NAME: MARK SHARMA [address] [facility] PHYS: Evan Martinez MD : 1950 AGE: 68 SEX: F [place] [address] LOC: CARISSA PHONE #: [phone] EXAM DATE: 11/19/2019 STATUS: [facility] FAX #: RAD #: [id number] D/C DT PAGE 1 Signed Report Patient Name: MARK SHARMA Unit No: [id number] EXAMS: CPT CODE: [id number] XR CHEST1 V 86891 <Continued> Orig Print D/T: S: 11/20/2019 (0723) [facility] NAME: MARK SHARMA [address] [facility] PHYS: Evan Martinez MD : 1950 AGE: 68 SEX: F [place] [address] LOC: CARISSA PHONE #: [phone] EXAM DATE: 11/19/2019 STATUS: [facility] FAX #: [phone] RAD #: [id number] D/C DT PAGE 2 Signed Report- XR FLUORO FOR SPINE [id number] 11:17:00 Patient Name: MARK SHARMA Unit No: [id number] EXAMS: CPT CODE: [id number] XR FLUORO FOR SPINE INJ 73486 THORACIC TRANSFORAMINAL INJECTION REFERRING PHYSICIAN: PREOPERATIVE DIAGNOSIS: [...] Evan Braun M.D. [facility] NAME: MARK SHARMA [address] [facility] PHYS: DOCUD - Evan Braun MD [place] [address] : 1950 AGE: 68 SEX: F LOC: CARISSA PHONE #: [phone] EXAM DATE: 11/19/2019 STATUS: [facility] FAX #: [phone] RAD #: [id number] D/C DT PAGE 1 Signed Report (CONTINUED) Patient Name: MARK SHARMA Unit No: [id number] EXAMS: CPT CODE: [id number] XR FLUORO FOR SPINE INJ 22174 <Continued> CC: Evan Braun MD Technologist: JACKSON FARIAS RT(R) Transcribed D/ (1117) Jean ClaudeD [facility] NAME: MARK SHARMA [address] [facility] PHYS: MITCH - Evan Braun MD [place] [address] : 1950 AGE: 68 SEX: F LOC: CARISSA PHONE #: [phone] EXAM DATE: 11/19/2019 STATUS: [facility] FAX #: [phone] RAD #: [id number] D/C DT PAGE 2 Signed Report Patient Name: MARK SHARMA Unit No: [id number] EXAMS: CPT CODE: [id number] XRFLUORO FOR SPINE INJ 96029 <Continued> Orig Print D/T: S: 11/19/2019 (1120) [facility] NAME: MARK SHARMA [address] [facility] PHYS: Evan Matrinez MD [place] [address] : 1950 AGE: 68SEX: F LOC: CARISSA PHONE #: [phone] EXAM DATE: 11/19/2019 STATUS: [facility] FAX #: [phone] RAD #: [id number] D/C DT PAGE 3 Signed Report- XR CHEST 1 [id number] 20:06:00 Patient Name: MARK SHARMALEY Unit No: [id number] EXAMS: CPT CODE: [id number] XR CHEST 1 V 67360 IMAGES PROVIDED: One frontal view of the chest is provided. COMPARISON: None FINDINGS: The lungs are clear. The heart size and pulmonary vasculature are normal. No pleural effusion or pneumothorax. IMPRESSION: Unremarkable exam of the chest. at 2006 Reported and signed by: Jed Hoyos M.D. CC: Evan Braun MD Technologist: HEATH MONTOYA RT(R) Transcribed D/T: 05/2020 (2005) t.J [facility] NAME: MARK SHARMA [address] [facility] PHYS: Evan Martinez MD : 1950 AGE: 68 SEX: F [place] [address] LOC: CARISSA PHONE #: [phone] EXAM DATE: 10/06/2019 STATUS: [facility] FAX #: [phone] RAD #: [id number] D/C DT PAGE 1 Signed Report Patient Name: MARK SHARMA Unit No: [id number] EXAMS:CPT CODE: [id number] XR CHEST 1 V 37471 <Continued> Orig Print D/T: S: 10/08/2019 (2008) [facility] NAME: MARK SHARMA [address] [facility] PHYS: Evan Martinez MDDOB: 1950 AGE: 68 SEX: F [place] [address] LOC:CARISSA PHONE #: [phone] EXAM DATE: 10/06/2019 STATUS: [facility] FAX #: [phone] RAD #: [id number] D/C DT PAGE 2 Signed Report- XR FLUORO FOR SPINE [id number] 08:52:00 Patient Name: MARK SHARMA Unit No: [id number] EXAMS: CPT CODE: [id number] XR FLUORO FOR SPINE INJ 28192 THORACIC TRANSFORAMINAL INJECTION REFERRING PHYSICIAN: PREOPERATIVE DIAGNOSIS: [...] Evan Braun M.D. [facility] NAME: MARK SHARMA [address] [facility] PHYS: MITCH - Evan Braun MD [place], [place] [address] : 1950 AGE: 68 SEX: F LOC: CARISSA PHONE #: [phone] EXAM DATE: 10/06/2019 STATUS: [facility] FAX #: [phone] RAD #: [id number] D/C DT PAGE 1 Signed Report (CONTINUED) Patient Name: MARK SHARMA Unit No: [id number] EXAMS: CPT CODE: [id number] XR FLUORO FOR SPINE INJ 15209 <Continued> CC: Technologist: Sugar Hunt(R) Transcribed D/ (0852) AlphonseUVD [facility] NAME: MARK SHARMA [address] [facility] PHYS: Evan Martinez MD [place] [address] : 1950 AGE: 68 SEX: F LOC: CARISSA PHONE #: [phone] EXAM DATE: 10/06/2019 STATUS: [facility] FAX #: [phone] RAD #: [id number] D/C DT PAGE 2 Signed Report Patient Name: MARK SHARMA Unit No: [id number] EXAMS: CPT CODE: [id number] XR FLUORO FOR SPINE INJ 70006 <Continued> Orig Print D/T: S: 10/06/2019 (0856) [facility] NAME: MARK SHARMA [address] [facility] PHYS: Evan Martinez MD [place] [address] : 1950 AGE: 68 SEX: F LOC: CARISSA PHONE #: [phone] EXAM DATE: 10/06/2019 STATUS: [facility] FAX #: [phone] RAD #: [id number] D/C DT PAGE 3 Signed Report- US ABDOMEN [id number] 09:51:00 Name: MARK SHARMA [facility] : 1950 Age/S: 68 / F [address] [place] [address] Unit #: [id number] Loc: Eugenio [id number] Phys: Salvador Richter MD Acct: [id number] Dis Date: Status: DIS IN PHONE #: [phone] Exam Date: 04/22/2019 1500 FAX #: [phone] Reason: ASCITIES Report Has Been Amended EXAMS: CPT CODE: [id number] US ABDOMEN LTD 25606 Addendum - 06/30/2019 SIGNED 06/30/2019 ADDENDUM: [id number] US/USABDLTD ADDENDUM: The technical component of the study was performed by supervised physician office clerk assistant, Romeo Goss. at 0951 Reported and si gned by: Van Boucher M.D. Report PROCEDURE: Ultrasound-guided paracentesis. INDICATION: 68-year-old female with large volume ascites COMPARISON: None TECHNIQUE: The technical component of the study was performed by supervised physician office clerk assistant. The technicalreport is available in the electronic medical record. Informed consent was obtained prior to the procedure. A total of 5 L of ceci peritoneal fluid was removed. IMPRESSION: 1. Technically successful ultrasound- guided paracentesis. SL: [id number] at 1611 Reported and signed by: Van Boucher M.D. CC: Salvador Richter MD; Adolfo Snyder Technologist: Idnia Fuentes RDMS (AB) (OB) Trnscb Date/Time: 04/22/2019 (1610) [email or web address] Orig Print D/T: S: 04/22/2019 (1614) Probe: PAGE 1 Signed Report- US PARACENTESIS W [id number] 09:51:00 Name: MARK SHARMA [facility] : 1950 Age/S: 68 / F [address] [place] [address] Blvd Unit #: [id number] Loc: Eugenio [id number] Phys: Saul Fowler MD Acct: [id number] Dis Date: Status: DIS IN PHONE #: [phone] Exam Date: 04/22/2019 1608 FAX #: [phone] Reason: u/s guideD PARACENTHESIS - LARGE VOLUME ASCIIIS Report Has Been Amended EXAMS: CPT CODE: [id number] US PARACENTESIS W IMAGE 40617 Addendum - 06/30/2019 SIGNED 06/30/2019 ADDENDUM: [id number] US/PARACENTWI ADDENDUM: The technical co mponent of the study was performed by supervised physician office clerk assistant, Romeo Goss. at 0951 Reported andsigned by: Van Boucher M.D. Report PROCEDURE: Ultrasound-guided paracentesis. INDICATION: 68-year-old female with large volume ascites COMPARISON: None TECHNIQUE: Thetechnical component of the study was performed by supervised physician office clerk assistant. The technical report is available in the electronic medical record. Informed consent was obtained prior to the procedure. A total of 5 L of ceci peritoneal fluid was removed. IMPRESSION: 1. Technically successful ultrasound-guided paracentesis. SL: [id number] at 1611 Reported and signed by: Van Boucher M.D. CC: Salvador Richter MD; Adolfo Snyder; Saul Fowler MD Technologist: India Fuentes RDMS (AB) (OB) Trnscb Date/Time: 04/22/2019 (1611) [email or web address] Orig Print D/T: S: 04/22/2019 (4231) Probe: PAGE 1 Signed Report- US ABDOMEN [id number] 13:44:00 Name: MARK SHARMA [facility] : 1950 Age/S: 68 / F [address] [place] [address] Unit #: [id number] Loc: D[id number] Phys: Sharyn Moncada MD Acct: [id number] Dis Date: Status: DEP CLI PHONE #: [phone] Exam Date: 04/30/2019 0847 FAX #: [phone] Reason: ASCITES, PARACENTESIS Report Has Been Amended EXAMS: CPT CODE: [id number] US ABDOMEN LTD 21119 Addendum - 06/02/2019 SIGNED 06/02/2019 ADDENDUM: [id number] US/USABDLTD Performed and at 1344 Reported and [...] study was performed by directly supervised physician office clerk assistant. The technical report is available in the electronic medical record. FINDINGS: Total volume of 7 L of clear yellow ascites was removed. IMPRESSION: 1. Moderate ascites. 2. Technically successful ultrasound-guided paracentesis. PAGE 1 Signed Report (CONTINUED) Name: MARK SHARMA : 1950 Age/S: 68 / F [address] [place] [address] Unit #: [id number] Loc: [place] [address] Phys: Sharyn Moncada MD Acct: [id number] Dis Date: Status: DEP CLI PHONE #: [phone] Exam Date: 04/30/2019 0847 FAX #: [phone] Reason: ASCITES, PARACENTESIS Report Has Been Amended EXAMS: CPT CODE: [id number] US ABDOMEN LTD 76819 <Continued> at 0933 Reported and signed by: Fermin Galvan D.O. CC: Adolfo Snyder; Sharyn Moncada MD Technologist: Brandy Alatorre Trnwab Date/Time: 04/30/2019 (932) [email or web address] Orig Print D/T: S: 04/30/2019 (936) Probe: PAGE 2 Signed Report - US PARACENTESIS W [id number] 13:44:00 Name: MARK SHARMA : 1950 Age/S: 68 / F [address] [place] [address] Unit #: [id number] Loc: DORIS [id number] Phys: Sharyn Moncada MD Acct: [id number] Dis Date: Status: DEP CLI PHONE #: [phone] Exam Date: 04/30/2019 08 FAX #: [phone] Reason: POSST OP ASCITES Report Has Been Amended EXAMS: CPT CODE: [id number] US PARACENTESIS W IMAGE 97095 Addendum - 06/02/2019 SIGNED 06/02/2019 ADDENDUM: [id number] US/PARACENTWI Performed and at 1344 Reported and [...] study was performed by directly supervised physician office clerk assistant. The technical report is available in the electronic medical record. FINDINGS: Total volume of 7 L of clear yellow ascites was removed. IMPRESSION: 1. Moderate ascites. 2. Technically successful ultrasound-guided paracentesis. PAGE 1 Signed Report (CONTINUED) Name: MARK SHARMA [facility] : 1950 Age/S: 68 / F [address] [place] [address] BlvdUnit #: [id number] Loc: [place] [address] Phys: Sharyn Moncada Acct: [id number] Dis Date: Status:DEP CLI PHONE #: [phone] Exam Date: 04/30/2019 08 FAX #: [phone] Reason: POSST OP ASCITES Report Has Been Amended EXAMS: CPT CODE: [id number] US PARACENTESIS W IMAGE 90112 <Continued> Electronically Signed by Munir Galvan on 04/30/2019 at 0933 Reported and signed by: Fermin Galvan D.O. CC: Adolfo Snyder; Sharyn Moncada MD Technologist: Brandy Alatorre [facility] Date/Time: 04/30/2019 (932) Sophie.[email or web address] Orig Print D/T: S: 04/30/2019 (936) Probe: PAGE 2 Signed Report- US ABDOMEN [id number] 09:33:00 Name: MARK SHARMA [facility] [place] : 1950 Age/S: 68 / F [address] [place] [address] Unit #: [id number] Loc: Eugenio [id number] Phys: Sharyn Moncada MD Acct: [id number] Dis Date: Status: REG CLI PHONE #: [phone] Exam Date: 04/30/2019846 FAX #: [phone] Reason: ASCITES, PARACENTESIS EXAMS: CPTCODE: [id number] US ABDOMEN LTD 51547 EXAM: US ABDOMEN LIMITED PROCEDURE: Ultrasound- guided paracentesis. INDICATION: Ascites. COMPARISON: None. TECHNIQUE: Right abdominal ultr asound interrogation was performed, which showed moderate ascites. The procedure, risks, benefits and alternatives were discussed. Informed consent was obtained. Timeout was performed prior to the procedure. The technical component of this study was performed by directly supervised physician office clerk assistant. The technical report is available in the electronic medical record. FINDINGS: Total volume of 7 L of clear yellow ascites was removed. IMPRESSION: 1. Moderate ascites. 2. Technically successful ultrasound-guided paracentesis. at 0933 Reported and signed by: Fermin Galvan D.O. CC: Adolfo Snyder; Sharyn Moncada MD Technologist: Brandy Alatorre Trnscb Date/Time: 04/30/2019 (932) Sophie.[email or web address] Orig Print D/T: S: 04/30/2019 (936) Probe: PAGE1 Signed Report- US PARACENTESIS W [id number] 09:33:00 Name: MARK SHARMA [facility] [place] : 1950 Age/S: 68 / F [address] [place] [address] Unit #: [id number] Loc: Eugenio [id number] Phys: Sharyn Moncada MD Acct: [id number] Dis Date: Status: REG CLI PHONE #: [phone] Exam Date: 04/30/2019 0847 FAX #: [phone] Reason: POSST OP ASCITES EXAMS: CPTCODE: [id number] US PARACENTESIS W IMAGE 60075 EXAM: US ABD OMEN LIMITED PROCEDURE: Ultrasound-guided paracentesis. INDICATION: Ascites. COMPARISON: None. TECHNIQUE: Right abdominal ultrasound interrogation was performed, which showed moderate ascites. The procedure, risks, benefits and alternatives were discussed. Informed consent was obtained. Timeout was performed prior to the procedure. The technical component of this study was performed by directly supervised physician office clerk assistant. The technical report is available in the electronic medical record. FINDINGS: Total volume of 7 L of clear yellow ascites was removed. IMPRESSION: 1. Moderate ascites. 2. Technically successful ultrasound-guided paracentesis. at 0933 Reported and signed by: Fermin Galvan D.O. CC: Adolfo Snyder; Sharyn Moncada MD Technologist: Brandy Alatorre Trnscb Date/Time: 04/30/2019 (0933) [email or web address] Orig Print D/T: S: 04/30/2019 (0937) Probe: PAGE1 Signed ReportSURGICAL [id number] 15:07:00 RUN DATE: 04/24/19 [facility] *LIVE* PAGE 1 RUN TIME: 1507 Specimen Inquiry RUN USER: INTERFACE PATIENT: MARK SHARMA LOC: KYMBERLY U #: [id number] AGE/SX: 68/F ROOM: [facility] RE04/14/19REG DR: Sharyn Moncada MD : [birth year] BED: 1 DIS: 04/16/19 STATUS: DIS IN TLOC: SPEC #: [id number] RECD: 04/15/19 STATUS: [facility] #: [id number] LIBRADO: 04/15/[address]: Sharyn Moncada MD ENTERED: 04/17/19 SP TYPE: SURG SPEC OTHR DR: Adolfo Snyder MD ORDERED: GM LEVEL 4 CODES: [id number] - SOFT TISSUES, N P84322 - URINARY BLADDER F48330- UTERUS, NOS I26343 - FALLOPIAN TUBE BT3948 - LYMPH NODE, NOS BB4085 - OMENTUM, NOS QI3910 - PELVIS, NOS COPIES TO: Adolfo Snyder MD [address] [facility] [address] [place] [address] Sharyn Moncada MD [address] [place] [address] PROCEDURES: GM LEVEL 4 (Incomplete) TISSUES: [...] CONTINUED ON NEXT PAGE RUN DATE: 04/24/19 [facility] *LIVE* PAGE 2 RUN TIME: 1507 Specimen Inquiry RUN USER: INTERFACE ------ ------SPEC #: [id number] PATIENT: MAKR SHARMA #[id number] (Continued) FINAL DIAGNOSIS (Continued) Pelvic washings and [...] ON NEXT PAGE -- RUN DATE: 04/24/19 [facility] *LIVE* PAGE 3 RUN TIME: 1507 Specimen Inquiry RUN USER: INTERFACE SPEC #: [id number] PATIENT: MARK SHARMA #[id number] (Continued) GROSS AND MICROSCOPIC (Continued) The margin [...] CONTINUED ON NEXT PAGE RUN DATE: 04/24/19 [facility] *LIVE* PAGE 4 RUN TIME: 1507 Specimen Inquiry RUN USER: INTERFACE ----- -------SPEC #: [id number] PATIENT: MARK SHARMA #[id number] (Continued) REVIEWED BY: LW SYNOPTIC REPORT *Specimen: [...] *TNM: T1a N0 MX. Signed SIGNATURE ON Benito Hale 04/24/19 1507 END OF REPORT BASIC METABOLIC [id number] 08:17:00 Test Item Value Reference Range Interpretation [...] 7.7 mg/dL 8.0-10.5 L CA) CBC W/AUTO [id number] 08:02:00 Test Item Value Reference Range Interpretation [...] REQUIRED (test NO code = MDIFF) - [facility] [id number] 16:11:00 Name: MARK SHARMA [facility] [place] : 1950 Age/S: 68 / F [address] [facility] Unit #: [id number] Loc: Eugenio [id number] Phys: Salvador Richter MD Acct: [id number] Dis Date: Status: ADM IN PHONE #: [phone] Exam Date: 04/22/2019 1500 FAX #: [phone] Reason: ASCITIES EXAMS: CPTCODE: [id number] US ABDOMEN LTD 52765 PROCEDURE: Ultrasound-guided paracentesis. INDICATION: 68-year-old female with large volume ascites COMPARISON: None TECHNIQUE: The technical component of the study was performed by supervised physician office clerk assistant. The technical report is available in the electronic medical record. Informed consent was obtained prior to the procedure. A totalof 5 L of ceci peritoneal fluid was removed. IMPRESSION: 1. Technically successful ultrasound-guided paracentesis. SL: [id number] at 1611 Reported and signed by: Van Boucher M.D. CC: Salvador Richter MD; Adolfo Snyder Technologist: India Fuentes RDMS (AB) (OB) Trnscb Date/Time: 04/22/2019 (1611) [email or web address] Orig Print D/T: S: 04/22/2019 (1614) Probe: PAGE 1 Signed Report- US PARACENTESIS W [id number] 16:11:00 Name: MARK SHARMA [facility] [place] : 1950 Age/S: 68 / F [address] [place] [address] Unit #: [id number] Loc: [place], [id number] Phys: Saul oFwler MD Acct: [id number] Dis Date: Status: ADM IN PHONE #: [phone] Exam Date: 04/22/2019 1608 FAX #: [phone] Reason: u/s guideD PARACENTHESIS - LARGE VOLUME ASCIIIS EXAMS: CPTCODE: [id number] US PARACENTESIS W IMAGE 81633 PROCEDURE: U ltrasound-guided paracentesis. INDICATION: 68-year-old female with large volume ascites COMPARISON: None TECHNIQUE: The technical component of the study was performed by supervised physician office clerk assistant. The technical report is available in the electronic medical record. Informed consent was obtained prior to the procedure. A totalof 5 L of ceci peritoneal fluid was removed. IMPRESSION: 1. Technically successful ultrasound-guided paracentesis. SL: [id number] at 1611 Reported and signed by: Van Boucher M.D. CC: Salvador Richter MD; Adolfo Snyder; Saul Serrato MD Technologist: India Fuentes RDMS (AB) (OB) Trnscb Date/Time: 04/22/2019 (1610) AlphonseRH17 Orig Print D/T: S: 04/22/2019 (1614) Probe: PAGE 1 Signed ReportCOMPREHENSIVE METABOLIC PANEL [...] 20-125 H TOTAL (test code = ALKP) [id number] 05:38:00 Test Item Value Reference Range Interpretation Comments MAGNESIUM (test code = MAG) 1.80 mg/dL 1.8-2.4 N CBC W/AUTO [id number] 05:28:00 Test Item Value Reference Range Interpretation [...] (test NO code = MDIFF) UR SODIUM [id number] 03:28:00 Test Item Value Reference Range Interpretation Comments UR SODIUM RANDOM 38 MEQ/L The Referen ce Range and (test code = EMIGDIO) Method Per formance specificationsh ave not been established for this fluid. The test result should be correlated into the clinical context forinte rpretation. UR PROTEIN/CREATININE [id number] 03:28:00 Test Item Value Reference Range Interpretation [...] RATIO (test code = P/CRATIO) UR OSMOLALITY [id number] 03:28:00 Test Item Value Reference Range Interpretation Comments UR OSMOLALITY RANDOM (test code = 379 MOS/KG 390-1090 L OSMOU) UR SODIUM [id number] 03:10:00 Test Item Value Reference Range Interpretation Comments UR SODIUM RANDOM (test code = EMIGDIO) MEQ/L UR PROTEIN/CREATININE [id number] 03:10:00 Test Item Value Reference Range Interpretation Comments UR PROTEIN RANDOM (test code = PROTU) mg/dL UR CREATININE RANDOM (test code = mg/dL CREATU) PROTEIN/CREATININE RATIO (test code = P/CRATIO) UR OSMOLALITY [id number] 03:10:00 Test Item Value Reference Range Interpretation Comments UR OSMOLALITY RANDOM (test code = 379 MOS/KG 390-1090 L OSMOU) - CT ABD PELVIS W/O [id number] 00:11:00 Name: MARK SHARMA [facility] : 1950 Age/S: 68 / F [address] [place] [address] Unit #: [id number] Loc: Eugenio [id number] Phys: Musa Monroe MD Acct: [id number] Dis Date: Status: ADM IN PHONE #: [phone] Exam Date: 04/21/2019 232 FAX #: [phone] Reason: abdominal distension, AMS EXAMS: CPTCODE: [id number] CT ABD PELVIS W/O CONT 45223 CT abdomen and pelvis without contrast dated [...] 1 Signed Report (CONTINUED) Name: MARK SHARMA [facility] : 1950 Age/S: 68 / F [address] [place] [address] Blvd Unit #: [id number] Loc: [place] [address] Phys: Musa Monroe MD Acct: [id number] Dis Date: Status: ADM IN PHONE #: [phone] Exam Date: 04/21/20192326 FAX #: [phone] Reason: abdominal distension, AMS EXAMS: CPT CODE: [id number] CT ABD PELVIS W/O CONT 82962 <Continued> PELVIS: The patient is status post [...] M.D. 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 [id number] 21:43:00 Test Item Value Reference Range Interpretation Comments AMMONIA (test code = AMM) < 10 umol/L 0-35 N COMPREHENSIVE METABOLIC [id number] 21:21:00 Test Item Value Reference Range Interpretation [...] TOTAL (test code = ALKP) THYROID STIMULATING [id number] 21:21:00 Test Item Value Reference Range Interpretation Comments THYROID STIMULATING 4.04 0.42-5.47 N Results in HORMONE (test code = TSH) mi lli-International Units/mL - XR CHEST 2 [id number] 21:15:00 FAX: Adolfo Nur MD [phone] [place]: St: REG FAX: Musa Monroe MD [phone] Name: MARK SHARMA [facility] : 1950 Age/S: 68/F [address] [place] [address] Unit #: [id number] Loc: [place] [address] Phys: Musa Monroe MD Acct: [id number] Dis Date: Status: REG ER PHONE #: [phone] Exam Date: 04/21/2019 211 FAX #: [phone] Reason: AMS EXAMS: CPT CODE: [id number] XR CHEST 2 V 92049 PROCEDURE: Ch est Radiograph. Clinical Indication: Altered [...] CC: Adolfo Snyder; Musa Monroe MD Technologist: RT Hank(R) Trnscrd Date/Time/By: 04/21/2019 (2114) : By: Natacha Orig Print D/T: S: 04/21/2019 (2117) PAGE 1 Signed ReportURINALYSIS [id number] 21:12:00 Test Item Value Reference Range Interpretation [...] code = AMORU) COMMENTS: Clean CatchCOMPREHENSIVE METABOLIC [id number] 21:08:00 Test Item Value Reference Range Interpretation [...] TOTAL (test code = ALKP) THYROID STIMULATING [id number] 21:08:00 Test Item Value Reference Range Interpretation Comments THYROID STIMULATING HORMONE (test code 0.42-5.47 = TSH) CBC W/AUTO [id number] 20:57:00 Test Item Value Reference Range Interpretation [...] (test NO code = MDIFF) BASIC METABOLIC [id number] 05:18:00 Test Item Value Reference Range Interpretation [...] 7.1 mg/dL 8.0-10.5 L CA) CBC W/AUTO [id number] 05:05:00 Test Item Value Reference Range Interpretation [...] (test code NO = MDIFF) BASIC METABOLIC [id number] 13:06:00 Test Item Value Reference Range Interpretation [...] = 8.1 mg/dL 8.0-10.5 N CA) [place] [id number] 08:10:00 Test Item Value Reference Range Interpretation Comments CA 125 (test 304.6 U/mL 0.0-38.1 A [employer] cs code = Electrochemilum inescence CA125) Immunoassay(ECL IA)Values obtained with d ifferent assay methods or kits cannotbe used interchangeably . Results cannot be inter preted asabsolute evid ence of the presence or abs ence of malignantdiseas e.Performed At: [facility] [address] [place], [place] [id number] [place] Dhillon MD Ph:[phone] BASIC METABOLIC [id number] 16:00:00 Test Item Value Reference Range Interpretation [...] = 8.8 mg/dL 8.0-10.5 N CA) AG [id number] 16:00:00 Test Item Value Reference Range Interpretation Comments AG CARCINOEMBRYONIC (test code = 12.8 NG/ML 0.0-5.0 H CEA) BASIC METABOLIC [id number] 15:47:00 Test Item Value Reference Range Interpretation [...] (test code = CA) mg/dL 8.0-10.5 AG [id number] 15:47:00 Test Item Value Reference Range Interpretation Comments AG CARCINOEMBRYONIC (test code = 12.8 NG/ML 0.0-5.0 H CEA) PROTHROMBIN [id number] 15:24:00 Test Item Value Reference Range Interpretation Comments PROTHROMBIN TIME 10.8 SECONDS 9.3-12.9 N PATIENT (test code = PTP) INTERNATIONAL NORMAL 1.0 0.8-1.2 N TARGET RATIO (test code = INR BY IN DICATION INR) Indication INR1. Prophyl axis of venous thrombos is 2.0 - 3. 0 (orthopedic sathish linda), Prophylaxis of venous thrombos is (other than [...] o prevent recurre nt infarct). THROMBOPLASTIN TIME [id number] 15:24:00 Test Item Value Reference Range Interpretation Comments THROMBOPLASTIN TIME 29.0 Seconds 25.0-39.5 N Ther apeutic PARTIAL (test code = Range: 50.4 - 88.3 PTT) Seconds Effective 01/13/2019 CBC W/AUTO [id number] 15:03:00 Test Item Value Reference Range Interpretation [...] BLOOD IN EXTRA BIN; BLOOD IN LABURINALYSIS [id number] 11:52:00 Test Item Value Reference Range Interpretation [...] /LPF NONE SEEN - XR CHEST 2 [id number] 10:13:00 FAX: Adolfo Nur MD [phone] [place]: St: PRE FAX: Sharyn Forte [phone] Name: MARK SHARMA [facility] : 1950 Age/S: 68/F [address] [place] [address] Unit #: [id number] Loc: [place] [address] Phys: Sharyn Moncada MD Acct: [id number] Dis Date: Status: PRE IN PHONE #: [phone] Exam Date: 04/13/2019 1010 FAX #: [phone] Reason: HYST EXAMS: CPT CODE: [id number] XR CHEST 2 V 10036 CHEST RADIOGR APHS - PA AND LATERAL: COMPARISON: September 26, 2018 CLINICAL HISTORY: HYST The cardiopericardial silhouette is within normal limits. Lungs areclear. No vascular congestion or pneumothorax. IMPRESSION: No acute pulmonary abnormality. at 1013 Reported and signed by: Joel Salmeron M.D. CC: Adolfo Snyder; Sharyn Moncada MD Technologist: Allyssa Pratt, RT(R)(M) Trnscrd Date/Time/By: 04/13/2019 (1013) : By: [email or web address] [facility] Print D/T: S: (1016) PAGE 1 Signed Report- XR FLUORO FOR SPINE [id number] 07:55:00 Patient Name: MARK SHARMA Unit No: [id number] EXAMS: CPT CODE: [id number] XR FLUORO FOR SPINE INJ 52731 LUMBAR TRANSFORAMINAL INJECTION REFERRING PHYSICIAN: PREOPERATIVE DIAGNOSIS: [...] taken to the PACU in good condition. aa4261 Reported and signed by: Evan Braun M.D. [facility] NAME: MARK SHARMA [address] [facility] PHYS: DOCUD - Evan Braun MD [place], [place] [address] : 1950 AGE: 67 SEX: F LOC: KarissaPITA PHONE #: [phone] EXAM DATE: 11/03/2018 STATUS: REG [facility] FAX #: [phone] RAD #: [id number] D/C DT PAGE 1 Signed Report (CONTINUED) Patient Name: MARK SHARMA Unit No: [id number] EXAMS: CPT CODE: [id number] XR FLUORO FOR SPINE INJ 86758 <Continued> CC: Deborah Emmanuel DO Technologist: Sugar Hunt(Mayi) Transcribed D/ 0755 tLANDY.UVD [facility] NAME: MARK SHARMA [address] [facility] PHYS: MITCH - Evan Braun MD [place], [place] [address] : 1950 AGE: 67 SEX: F LOC: [place]IS[place] PHONE #: [phone] EXAM DATE: 11/03/2018 STATUS: REG [facility] FAX #: [phone] RAD #: [id number] D/CDT PAGE 2 Signed Report Patient Name: MARK SHARMA Unit No: [id number] EXAMS: CPT CODE: [id number] XR FLUORO FOR SPINE INJ 66500 <Continued> Orig Print D/T: S: 11/03/2018 (0758) [facility] [facility] NAME: MARK SHARMA [address] [facility] PHYS: MITCH - DoctorEvan MD [place], [place] [address] : 1950 AGE: 67 SEX: F LOC: [facility] PHONE #: [phone] EXAM DATE: 11/03/2018 STATUS: REG [facility] FAX #: [phone] RAD #: [id number] D/C DT PAGE 3 Signed ReportSINUS CULTURE + GRAM [id number] 11:44:00 Test Item Value Reference Range Interpretation [...] gram (BEAKER) (test code = positive cocci 725252) in pairs GRAM STAIN RESULT 2+ gram (BEAKER) (test code = positive cocci 842085) in pairs RAD, SINUSES, LESS THAN 3 [id number] 14:53:00Reason for Exam:->chronic sinusitisFINAL REPORT Sinus, two views HISTORY: Chronic sinusitis COMPARISON: Sinus radiographs from 04/29/2017 DISCUSSION: The frontal, ethmoid, and maxillary sinuses are grossly clear. No mucoperiosteal thickening or air-fluid level present. IMPRESSION: Unremarkable two view sinus radiographs. Signed: Jed Salinas MDReport Verified Date/Time: 12/09/2017 14:53:57 Reading Location: [address] Radiology Reading Room RAD, CHEST, 2 [id number] 11:21:00Reason for Exam:->[id number] REPORT Chest, 2 views. Clinical History: r05 Comparison Study: 2015 Findings: The cardiac silhouette is unremarkable. Some scarring is seen in the right lung a pex. No other focal pulmonary opacity is seen. The pleural spaces are clear. Degenerative changes are seen. Impression: No active cardiopulmonary disease. Signed: Rusty Cagle MDReport Verified Date/Time: 12/05/2017 11:21:23 Reading Location: [facility] C013X Ortho Consult Reading Room SINUS CULTURE + [...] (BEAKER) (test code cocci in chains = 644466) and pairs 1+ Normal respiratory semaj present
[2021-03-03 08:34] LABS: Urine Blood 1+ (Negative); Urine Glucose Negative (Negative); Urine Protein Negative (Negative); Urine pH 6.5 (5.0-7.0)
[2021-03-03 08:47] LABS: Absolute Lymphocytes (CBC) 1.2 K/uL (0.7-4.9); Basophils % 0.8 % (0-1.3); Hematocrit 33.8 % (36.0-45.0); Lymphocytes % 17.1 % (15.3-44.8); RBC Red Blood Cell Count 3.65 M/uL (3.86-4.86)
[2021-03-03 09:03] LABS: ALT/SGPT 13 U/L (12-78); AST/SGOT 11 U/L (15-37); Albumin 2.9 g/dL (3.4-5.0); Alkaline Phosphatase 65 U/L (45-117); BUN Blood Urea Nitrogen 9 mg/dL (7-18); Bicarbonate 30 mmol/L (21-32); Bilirubin Direct < 0.1 mg/dL (0-0.2); Bilirubin Total 0.3 mg/dL (0.2-1.0); Glucose Level 102 mg/dL (74-106); Lipase 52 U/L (73-393); Potassium 3.5 mmol/L (3.5-5.1); Protein, Total 6.1 g/dL (6.4-8.2); Sodium Level 132 mmol/L (136-145)
--- NOTE | 2021-03-03 09:07 | RAD REPORT ---
EXAM DESCRIPTION: CT - Abdomen Pelvis W Contrast - 03/03/2021 8:44 am CLINICAL HISTORY: urinary retention s/p exploratory lap yesterday;Abd pain COMPARISON: No comparisons TECHNIQUE: Biphasic, helical CT imaging of the abdomen and pelvis was performed following 100 ml non -ionic IV contrast. No oral contrast administered. All CT scans are performed using dose optimization technique as appropriate and may include automated exposure control or mA/KV adjustment according to patient size. FINDINGS: Minimal bilateral pleural effusions and atelectasis noted. No acute lung base finding. No pericardial effusion or cardiomegaly The liver, spleen, and pancreas show no suspicious findings. Gallbladder and biliary tree are also wi thout suspicious finding. Renal function is symmetric and does not appear measurably delayed. No solid mass lesion of either ki dney. No pyelonephritis or acute parenchymal process. No hydronephrosis present. No abnormal calculi seen. The urinary bladder is fully contracted around a Trejo catheter. No adrenal abnormalities. No dilated bowel loops. No pneumatosis. Approximately 5-6 centimeter long segment of the sigmoid colo n shows wall thickening. Small amount of free fluid is present in the peritoneal cavity. There are a lso small collections of free air. Stranding is seen in the fatty tissues along the floor the pelvis. The air, fluid and stranding can all be explained by the very recent surgery. The sigmoid colon wall thickening may well be secondary response to the surgery as well. Development of a colitis is possib le but lesser in likelihood. No bulky lymphadenopathy or omental thickening. Uterus is not identified and presumed absent. Ovaries may be absent or recently resected. Remnant atrophic ovarian tissue cou ld be masked by the on opacified pelvic bowel loops. Air in stranding are present in the subcutaneous fatty tissues also typical for surgery. There is blo od or fluid trapped between the layers of the left-side oblique musculature. No enlargement of the mu scle bellies. No suspicious bony findings. IMPRESSION: No hydronephrosis or hydroureter identified. Urinary bladder is fully contracted around a Trejo catheter. Renal function is symmetric and does not appear grossly delayed. No pyelonephritis or acute renal par enchymal process seen. Free intraperitoneal air, fluid in stranding are present all typical for recent surgery. The air and stranding in the subcutaneous fatty tissues and the fluid or blood trapped between the left-side obli que musculature also commonly seen with surgery.
--- NOTE | 2021-03-03 09:28 | ER ---
Nurse's Notes [facility] Name: Cesilia Narvaez Age: 70 yrs Sex: Female : 1950 Arrival Date: 03/03/2021 Time: 06:36 Bed 27 Private MD: Diagnosis: Urinary retention Presentation: 03/03 07:02 Chief complaint: Patient states: "I had surgery yesterday for ovarian cancer in [address] [facility] today she is having problem urinating and we called the doctor and he said to go to the ER and get a catheter placed to use the restroom.". Coronavirus screen: At this time, the client does not indicate any symptoms associated with coronavirus-19. Ebola Screen: Patient negative for fever greater than or equal to 101.5 degrees Fahrenheit, and additional compatible Ebola Virus Disease symptoms. Initial Sepsis Screen: Does the patient meet any 2 criteria? No. Patient's initial sepsis screen is negative. Does the patient have a suspected source of infection? No. Patient's initial sepsis screen is negative. Risk Assessment: Do you want to hurt yourself or someone else? Patient reports no desire to harm self or others. Onset of symptoms was March 03, 2021. 07:02 Method Of Arrival: Ambulatory [facility] 07:02 Acuity: VIBHA 3 [facility] Historical: - Allergies: 07:07 No Known Allergies; [facility] - Home Meds: 07:07 Alprazolam Oral [Active]; gabapentin 300 mg oral cap [Active]; Primidone Oral [Active]; d3 famotidine 40 mg Oral tab [Active]; Propranolol Oral [Active]; Fluoxetine Oral [Active]; - PMHx: 07:07 neuralgia; ovarian cancer; jd3 - PSHx: 07:07 ovarian surgery; Hysterectomy; jd3 - Immunization history:: Adult Immunizations up to date. - Social history:: Smoking status: Patient denies any tobacco usage or history of. Screenin:41 Abuse screen: Denies threats or abuse. Denies injuries from another. Nutritional ph screening: No deficits noted. Tuberculosis screening: No symptoms or risk factors identified. Fall Risk None identified. Assessment: 07:48 General: Appears in no apparent distress. comfortable, well groomed, Behavior is calm, ph cooperative, appropriate for age. Pain: Complains of pain in suprapubic area. Neuro: Level of Consciousness is awake, alert, obeys commands, Oriented to person, place, time, situation. Cardiovascular: Capillary refill < 3 seconds in bilateral fingers Patient's skin is warm and dry. Respiratory: Airway is patent Respiratory effort is even, unlabored, Respiratory pattern is regular, symmetrical. GI: Patient currently denies diarrhea, nausea, vomiting. : Reports inability to void, pain in suprapubic area. Derm: Skin is intact, Skin is pink, warm \\T\\ dry. Musculoskeletal: Circulation, motion, and sensation intact. Range of motion: intact in all extremities. 08:35 Reassessment: Patient appears in no apparent distress at this time. Patient and/or ph family updated on plan of care and expected duration. Pain level reassessed. Patient is alert, oriented x 3, equal unlabored respirations, skin warm/dry/pink. Pt reports some relief after Trejo placed, taken to CT via stretcher. Vital Signs: 07:08 BP 99 / 50; Pulse 66; Resp 17 S; Temp 97.1(TE); Pulse Ox 99% on R/A; Weight 63.5 kg jd3 (R); Height 5 ft. 3 in. (160.02 cm) (R); Pain 6/10; 10:08 BP 102 / 54; Pulse 68; Resp 18; Temp 97.5; Pulse Ox 99% on R/A; ph 07:08 Body Mass Index 24.80 (63.50 kg, 160.02 cm) jd3 ED Course: 06:36 Patient arrived in ED. es 07:04 Triage completed. jd3 07:08 Arm band placed on. jd3 07:40 Milagros Charles, RN is Primary Nurse. ph 07:41 Patient has correct armband on for positive identification. Placed in gown. Bed in low ph position. Call light in reach. Side rails up X 1. Pulse ox on. NIBP on. Door closed. Noise minimized. Warm blanket given. 07:42 Cody West MD is Attending Physician. kdr 08:15 Trejo cath inserted, using sterile technique, 16 Fr., by me, balloon inflated, returned ph clear yellow urine. Patient tolerated well. 08:22 Missed attempt(s): 22 gauge in right antecubital area. Bleeding controlled, band aid ph applied, catheter tip intact. 08:25 Inserted saline lock: 22 gauge in right antecubital area, using aseptic technique. ph Blood collected. 08:44 CT Abd/Pelvis - IV Contrast Only In Process Unspecified. EDMS 10:07 No provider procedures requiring assistance completed. Trejo cath removed intact, ph balloon deflated. IV discontinued, intact, bleeding controlled, No redness/swelling at site. Pressure dressing applied. Administered Medications: No medications were administered Output: 08:35 Urine: 600ml (Trejo); Total: 600ml. ph 10:08 Urine: 600ml (Trejo); Total: 1200ml. ph Outcome: 09:28 Discharge ordered by . kdr 10:08 Discharged to home ambulatory, with significant other. ph 10:08 Condition: good 10:08 Discharge instructions given to patient, Instructed on discharge instructions, follow up and referral plans. Demonstrated understanding of instructions, follow-up care. 10:09 Patient left the ED. ph Signatures: Dispatcher [employer] EDMS Cody West MD MD kdr Salyer, Edna es Hall, Patricia RN RN ph Lasha Hogue RN RN jd3
--- NOTE | 2021-03-03 09:28 | EDPHYS ---
Physician Documentation [facility] Name: Cesilia Narvaez Age: 70 yrs Sex: Female : 1950 Arrival Date: 03/03/2021 Time: 06:36 Bed 27 Private MD: ED Physician Cody West HPI: 03/03 09:29 This 70 yrs old Female presents to ER via Ambulatory with complaints of NEED kdr A CATH, Urinary Retention. 09:29 The patient presents with urinary symptoms, dysuria, hesitancy, urinary retention. kdr Onset: The symptoms/episode began/occurred gradually, yesterday. Modifying factors: The symptoms are alleviated by nothing, the symptoms are aggravated by pressure, urinating. Associated signs and symptoms: Pertinent positives: dysuria, urinary frequency. Severity of symptoms: At their worst the symptoms were mild, in the emergency department the symptoms are unchanged. The patient had exlap yesterday and has not been able to urinate since going home. Historical: - Allergies: 07:07 No Known Allergies; jd3 - Home Meds: 07:07 Alprazolam Oral [Active]; gabapentin 300 mg oral cap [Active]; Primidone Oral [Active]; jd3 famotidine 40 mg Oral tab [Active]; Propranolol Oral [Active]; Fluoxetine Oral [Active]; - PMHx: 07:07 neuralgia; ovarian cancer; jd3 - PSHx: 07:07 ovarian surgery; Hysterectomy; jd3 - Immunization history:: Adult Immunizations up to date. - Social history:: Smoking status: Patient denies any tobacco usage or history of. ROS: 09:29 Positive for Urinary retention. kdr 09:29 Constitutional: Negative for fever, chills, and weight loss, Eyes: Negative for injury, pain, redness, and discharge, Neck: Negative for injury, pain, and swelling, Cardiovascular: Negative for chest pain, palpitations, and edema, Respiratory: Negative for shortness of breath, cough, wheezing, and pleuritic chest pain, Back: Negative for injury and pain, : Negative for injury, bleeding, discharge, and swelling, MS/Extremity: Negative for injury and deformity, Skin: Negative for injury, rash, and discoloration, Neuro: Negative for headache, weakness, numbness, tingling, and seizure activity. Psych: Negative for depression, anxiety, suicide ideation, homicidal ideation, and hallucinations, Allergy/Immunology: Negative for hives, rash, and allergies, Endocrine: Negative for neck swelling, polydipsia, polyuria, polyphagia, and marked weight changes, Hematologic/Lymphatic: Negative for swollen nodes, abnormal bleeding, and unusual bruising. 09:29 Abdomen/GI: Positive for abdominal pain, nausea, Negative for black/tarry stool, rectal pain, rectal bleeding, bowel incontinence, flatulence. 09:29 : Positive for difficulty urinating, Retention. Exam: 09:29 Constitutional: This is a well developed, well nourished patient who is awake, alert, kdr and in no acute distress. Head/Face: Normocephalic, atraumatic. Eyes: Pupils equal round and reactive to light, extra-ocular motions intact. Lids and lashes normal. Conjunctiva and sclera are non-icteric and not injected. Cornea within normal limits. Periorbital areas with no swelling, redness, or edema. Neck: Trachea midline, no thyromegaly or masses palpated, and no cervical lymphadenopathy. Supple, full range of motion without nuchal rigidity, or vertebral point tenderness. No Meningismus. Chest/axilla: Normal chest wall appearance and motion. Nontender with no deformity. No lesions are appreciated. Cardiovascular: Regular rate and rhythm with a normal S1 and S2. No gallops, murmurs, or rubs. Normal PMI, no JVD. No pulse deficits. Respiratory: Lungs have equal breath sounds bilaterally, clear to auscultation and percussion. No rales, rhonchi or wheezes noted. No increased work of breathing, no retractions or nasal flaring. Back: No spinal tenderness. No costovertebral tenderness. Full range of motion. Skin: Warm, dry with normal turgor. Normal color with no rashes, no lesions, and no evidence of cellulitis. MS/ Extremity: Pulses equal, no cyanosis. Neurovascular intact. Full, normal range of motion. Neuro: Awake and alert, GCS 15, oriented to person, place, time, and situation. Cranial nerves II-XII grossly intact. Motor strength 5/5 in all extremities. Sensory grossly intact. Cerebellar exam normal. Normal gait. Psych: Awake, alert, with orientation to person, place and time. Behavior, mood, and affect are within normal limits. 09:29 Abdomen/GI: Inspection: obese Bowel sounds: active, diminished, in all quadrants, Palpation: soft, moderate abdominal tenderness, in all quadrants. Vital Signs: 07:08 BP 99 / 50; Pulse 66; Resp 17 S; Temp 97.1(TE); Pulse Ox 99% on R/A; Weight 63.5 kg jd3 (R); Height 5 ft. 3 in. (160.02 cm) (R); Pain 6/10; 10:08 BP 102 / 54; Pulse 68; Resp 18; Temp 97.5; Pulse Ox 99% on R/A; ph 07:08 Body Mass Index 24.80 (63.50 kg, 160.02 cm) jd3 MDM: 09:28 Patient medically screened. kdr 09:29 Data reviewed: vital signs, nurses notes, lab test result(s), radiologic studies. kdr Counseling: I had a detailed discussion with the patient and/or guardian regarding: the historical points, exam findings, and any diagnostic results supporting the discharge/admit diagnosis, lab results, radiology results, the need for outpatient follow up. Response to treatment: the patient's symptoms have markedly improved after treatment, patient is well hydrated. Special discussion: Based on the patient's Hx, exam, and Dx evaluation, there is no indication for emergent surgery or inpatient Tx. It is understood by the patient/guardian that if the Sx's persist or worsen they need to return immediately for re-evaluation. I discussed with the patient/guardian in detail that at this point there is no indication for admission to the hospital. It is understood, however, that if the symptoms persist or worsen the patient needs to return immediately for re-evaluation. 03/03 08:02 Order name: Lipase; Complete Time: 09:16 kdr 03/03 08:02 Order name: Basic Metabolic Panel; Complete Time: 09:16 kdr 03/03 08:02 Order name: CBC with Diff; Complete Time: 09:16 kdr 03/03 08:02 Order name: Hepatic Function; Complete Time: 09:16 kdr 03/03 08:34 Order name: Urine Dipstick-Ancillary; Complete Time: 09:16 EDMS 03/03 08:40 Order name: CREATININE WHOLE BLOOD; Complete Time: 09:16 EDMS 03/03 08:02 Order name: IV Saline Lock; Complete Time: 08:35 kdr 03/03 08:02 Order name: Labs collected and sent; Complete Time: 08:36 kdr 03/03 08:02 Order name: CT Abd/Pelvis - IV Contrast Only; Complete Time: 09:16 kdr 03/03 08:02 Order name: Trejo; Complete Time: 08:35 kdr Administered Medications: No medications were administered Disposition: 03/03/21 09:28 Discharged to Home. Impression: Urinary retention. - Condition is Stable. - Discharge Instructions: Acute Urinary Retention, Female, [id number]. - Medication Reconciliation Form, Thank You Letter form. - Follow up: Private Physician; When: 1 - 2 days; Reason: If symptoms return, Further diagnostic work-up, Recheck today's complaints, Continuance of care, Re-evaluation by your physician. - Problem is new. - Symptoms have improved. Signatures: Dispatcher [employer] EDMS Cody West MD MD kdr Milagros Charles RN RN Lasha Chahal RN RN jd3 Corrections: (The following items were deleted from the chart) 10:09 09:28 03/03/2021 09:28 Discharged to Home. Impression: Urinary retention. Condition is ph Stable. Forms are Medication Reconciliation Form, Thank You Letter, Antibiotic Education, Prescription Opioid Use. Follow up: Private Physician; When: 1 - 2 days; Reason: If symptoms return, Further diagnostic work-up, Recheck today's complaints, Continuance of care, Re-evaluation by your physician. Problem is new. Symptoms have improved. kdr
[2021-03-03 10:17] VITALS: O2SAT 99
[2021-03-03 10:20] VITALS: BP 102/54; TEMP 97.5
== END 2021-03-03 10:09 | disposition home or self-care (01) ==
LOC: ER 06:32
DX: R33.9 Retention of urine, unspecified (principal); Z85.43 Personal history of malignant neoplasm of ovary
CPT/HCPCS: 85025; 80048; 36415; 82565; 80076; 81003; 83690; 74177; 51702; 99284; Q9967